=== PATIENT | female | born 1980 | race Caucasian/White ===

== ENCOUNTER 2024-05-27 09:42 | Outpatient (CLI) | payer BC, SELFPAY ==
--- NOTE | 2024-05-27 09:49 | XR_ITS ---
FINAL REPORT CLINICAL HISTORY: right hip pain; nki. possible sciatica but states it does not go down her leg COMPARISON: None FINDINGS: RIGHT HIP 3 views of the right hip demonstrate no acute fracture or dislocation. The joint spaces appear normal. The visualized bony structures are well aligned. No soft tissue abnormality is seen. IMPRESSION: No acute bony abnormality. Reviewed, Interpreted and Dictated by Maykel Rey III, MD Transcribed by Raquel Osman Authenticated and [facility]
--- NOTE | 2024-05-27 09:49 | XR_ITS ---
FINAL REPORT CLINICAL HISTORY: pain COMPARISON: None FINDINGS: RIGHT CALCANEUS: 2 views of the right calcaneus failed to reveal any evidence of acute fracture or dislocation. A plantar calcaneal spur is present. No soft tissue abnormality is identified. IMPRESSION: Plantar calcaneal spur without acute bony abnormality. Reviewed, Interpreted and Dictated by Maykel Rey III, MD Transcribed by Raquel Osman Authenticated and [facility]
== END 2024-05-27 23:59 | disposition home or self-care (01) ==
LOC: RAD 09:46
PROVIDERS: PCP Internal Medicine; Visit Provider Orthopaedic Surgery
DX: M79.671 Pain in right foot (principal); M25.551 Pain in right hip
CPT/HCPCS: 73502; 73650

== ENCOUNTER 2024-09-29 09:52 | Outpatient (POV) | payer BC, SELFPAY ==
--- NOTE | 2024-09-29 10:14 | EXP.PAIN.OV ---
HPI Data of Consult Patient: new to practice Consult date: 09/29/24 Requesting Physician: Alice Fulton APRN Primary Care Provider: Bobby Goyal Consult Narrative Reason for consult: Low back pain, right hip pain, right heel pain History of present illness: Ms. Mark is a 44 year old female who presents today as a new patient. She is a referral from Regan Fulton's office. Today she rates her pain a 5 out of 10. Patient states that she has pain from her low back that radiates into her right hip as well as pain directly at her right heel. Patient states this is gone on since 2002 and progressively worsening. She does describe this as a constant dull pain however states that it is worse with increased activity or prolonged positions. She states she has noticed worsening pain with walking or sitting for long periods of time. She states that she does have to often move around or change positions. She does state that it had all been along the right side up until around July that she ended up slipping in the snow and felt like she pulled something and then had more left pain as well. She states that pain along the left side just stays in and around her low back and buttocks/hip area. She denies any radiating symptoms into her legs. Patient does state that she saw Dr. Fulton regarding her heel and that the imaging did not show anything and that he thought possibly it was coming from her back. Patient states she has tried oral medications, heat and ice, topicals, at home stretching and exercise for longer than 12 weeks. Patient has had both physical therapy and chiropractor therapy with no additional changes and states that neither of those provided any additional improvement. Patient denies any previous injections. Patient is not on any scheduled medications. Her Alexys has been reviewed and is appropriate. CC: Alice Fulton APRN [facility] Disclaimer: The information contained in this section may have been updated after the patient was seen, as this information can be updated by other users. Medical History (Updated 09/29/24 @ 11:21 by Alice Fulton APRN) Diabetes Family History (Updated 09/29/24 @ 10:51 by Bettye Jacome RN) Other Unknown family medical history Social History (Updated 09/29/24 @ 10:53 by Bettye Jacome RN) Smoking Status: Never smoker alcohol intake: current current occupational status: employed Travel in the last 8 weeks: None Contact w/someone who lives/traveled outside [place] past 30 days?: No Exposure to someone with infectious disease in past 14 days?: No Do you have a fever (greater than 100.4 F or 38 C)?: No Have you tested positive for COVID-19: No Exposed to someone with COVID-19 in past 14 days?: No Do you have a sore throat?: No Do you have a cough?: No Do you have any weakness?: No Are you experiencing any nausea/vomitting?: No Do you have any diarrhea?: No Are you experiencing any unusual bleeding?: No Do you have any muscle aches/pain?: No Do you have any abdominal pain?: No Are you experiencing loss of taste or smell?: No Review of Systems Review of Systems Review of systems:: pertinent systems reviewed and negative unless documented below Review of systems (narrative): Review of Systems: General: No recent weight changes, no fever, no sleep disturbances Respiratory: No cough, no shortness of air, no recurring pulmonary infections Cardiovascular/peripheral vascular: No chest pain, no palpitations, no edema, no shortness of breath Gastrointestinal: No new onset incontinence, normal bowel movements reported Genitourinary: No new onset incontinence Musculoskeletal: Low back pain, bilateral hip pain, right heel pain Psychiatric: [Normal mood/affect] Neurological: [Denies weakness in extremities], [denies balance issues] Meds Home Medications and Allergies Home Medications ?Medication ?Instructions ?Recorded ?Confirmed ?Type fluticasone propionate 50 1 spray intranasal DIRECTED 09/14/24 09/29/24 History mcg/actuation nasal spray,suspension levocetirizine 5 mg tablet 5 mg PO DIRECTED 09/14/24 09/29/24 History semaglutide 2 mg/dose (8 mg/3 mL) 2 mg SQ DIRECTED 09/14/24 09/29/24 History subcutaneous pen injector (Ozempic) New Prescriptions to Start Prescriptions: Allergies Allergy/AdvReac Type Severity Reaction Status Date / Time No Known Allergies Allergy Verified 09/14/24 09:34 Objective Narrative: Physical Exam: General: Alert and oriented x3, no acute distress, pleasant and cooperative Lungs: Respirations even and unlabored, symmetrical chest expansion Eyes: PERRL Musculoskeletal: Flexion and extension of lumbar [spine] somewhat guarded secondary to pain, [antalgic gait noted] point tenderness along bilateral SIs with positive bilateral Silverio's, Rossi's, Gaenslen's, compression and distraction exam Neurological: Speech clear, no gross sensory deficit Additional findings Additional findings: X-ray right hip 05/27/2024 impression no acute bony abnormality\ Right calcaneus x-ray 05/27/2024 impression plantar calcaneal spur without acute bony abnormality MRI lumbar spine 09/08/2024 [facility] imaging Findings: The L5-S1 level shows a central disc herniation indenting the anterior aspect of the thecal sac. The neuroforamina are patent L4-L5 level shows a central disc herniation indenting the anterior aspect of the thecal sac. Neuroforamina patent. L3-L4 level shows no evidence of disc herniation or spinal stenosis. Neuroforamina patent. L2-L3 levels are normal. L1-2 level is normal. T12-L1 is normal. Conus and cauda equina normal. Paravertebral soft tissues are normal. No fracture or dislocation. Assessment and Plan *Assessment and plan (1) Low back pain: Status: Acute Qualifiers: Back pain laterality: right Chronicity: acute Sciatica presence: with sciatica Category: Medical Code(s): M54.50 - Low back pain, unspecified (2) Right hip pain: Status: Acute Category: Medical Code(s): M25.551 - Pain in right hip (3) Pain of right heel: Status: Acute Category: Medical Code(s): M79.671 - Pain in right foot (4) Bilateral sacroiliitis: Status: Acute Category: Medical Code(s): M46.1 - Sacroiliitis, not elsewhere classified Plan Patient is experiencing worsening pain along the low back and bilateral hips. They did have limited range of motion of the lumbar spine along with point tenderness along bilateral SI joints and a positive bilateral Silverio's, Rossi's, Gaenslen's, compression and distraction exam. I did discuss with the patient that I do believe they would benefit from bilateral SI injections. Risk and benefits were discussed with the patient and they would like to proceed forward with this option. Patient has tried and failed conservative therapy including continued at home stretching exercise for longer than 12 weeks that was physician guided. Patient has had both physical therapy and chiropractor therapy with no additional changes. Patient has had this pain for longer than 3 months. I will order the patient a compounded cream. I did also review over with the patient regarding her heel imaging and did let her know that there was a calcaneal spur noted. Patient states that she was unaware regarding this. I have recommended that she follow back up with Dr. Fulton's office pertaining to this. Patient will be scheduled for bilateral SI injections under fluoroscopy. Patient has been instructed to contact the clinic with any concerns before the next appointment. Dr. Arora has reviewed this note and agrees with this plan of care. This note was dictated using voice recognition software and make contain errors or omissions. All injections are used with Lidocaine or Bupivacaine and Depo Medrol.
[2024-09-29 10:47] VITALS: BP 129/85; PULSE 85; RESP 18; O2SAT 98; BMI 33.3
== END 2024-09-29 23:59 | disposition home or self-care (01) ==
LOC: SC.PAIN 09:54
PROVIDERS: PCP Internal Medicine; Visit Provider Nurse Practitioner Family
DX: M54.50 Low back pain, unspecified (principal); M25.551 Pain in right hip; M79.671 Pain in right foot; M46.1 Sacroiliitis, not elsewhere classified
CPT/HCPCS: 99202; G0463

== ENCOUNTER 2024-10-26 08:58 | Day surgery (SDC) | payer BC, SELFPAY ==
[2024-10-26 09:05] VITALS: BP 132/85; PULSE 89; RESP 18; O2SAT 100; BMI 33.9
[2024-10-26] MEDS: BUPIVACAINE 0.25% 10ML INJ 25 MG IJ (09:29)
[2024-10-26] MEDS: methylPREDNISolone ACETATE 80MG/ML VIAL 80 MG (09:29)
[2024-10-26 09:30] VITALS: BP 132/94; PULSE 83; RESP 18; O2SAT 100
[2024-10-26] MEDS: LIDOCAINE 1% 5ML PF VIAL 5 ML (09:30)
[2024-10-26 09:31] VITALS: BP 132/94; PULSE 83; RESP 18; O2SAT 100
[2024-10-26 09:34] VITALS: BP 133/89; PULSE 91; RESP 17; O2SAT 100
--- NOTE | 2024-10-26 12:47 | P.PCN_ITS ---
Procedure Date: 10/26/24 Time: 09:30 Anesthesiologist:: Zohaib Mera CRNA Complications:: None Pre-procedure Diagnosis:: Bilateral sacroiliitis Post-procedure Diagnosis:: Same Indications for Procedure:: Is a very pleasant 44-year-old female comes our clinic today for bilateral sacroiliac joint injections cortisone and local anesthetic. Patient describes low lumbar back pain off the midline bilaterally. Bilateral posterior hip pain. Difficulty transitioning from sitting to standing. Difficulty with ambulation. She rates her pain 7/10. Procedure Details:: Procedure: Bilateral sacroiliac joint injections under fluoroscopy Informed consent was obtained and the risks and benefits of the procedure were explained to the patient.~ The patient was taken to the procedure room and noninvasive monitors were placed including a noninvasive blood pressure cuff and pulse oximeter.~ The patient was placed prone on the procedure table. Both hips were cleansed using Betadine as a cleansing solution. C-arm fluoroscopy was used to view the right sacroiliac joint.~ The skin and subcutaneous tissues were anesthetized using lidocaine 1.5% and a 25-gauge needle.~ After this, a 22-gauge spinal needle was inserted under fluoroscopic guidance into the inferior aspect of the right sacroiliac joint.~ Omnipaque dye was injected and good spread was seen throughout the joint.~ After this, approximately 5 mL of bupivacaine, 0.25% and Depo-Medrol, 40 mg was incrementally injected into the right sacroiliac joint. We then moved to the left sacroiliac joint.~ The skin and subcutaneous tissues were anesthetized using lidocaine 1.5% and a 25-gauge needle.~ After this, a 22- gauge spinal needle was inserted under fluoroscopic guidance into the inferior aspect of the left sacroiliac joint.~ Omnipaque dye was injected and good spread was seen throughout the joint. After this, approximately 5 mL of bupivacaine, 0.25% and Depo-Medrol, 40 mg was incrementally injected into the left sacroiliac joint.~ The patient tolerated the procedure well with no complications. The patient was observed in the Pain Clinic and then was discharged home neurologically intact. Plan and Disposition:: Patient was discharged without incident.
== END 2024-10-26 09:34 | disposition home or self-care (01) ==
LOC: SC.PAINP 08:59
PROVIDERS: PCP Internal Medicine; Visit Provider Nurse Anesthetist, Certified Registered
DX: M46.1 Sacroiliitis, not elsewhere classified (principal)
CPT/HCPCS: 27096; G0260; J1010

== ENCOUNTER 2024-11-09 09:38 | Outpatient (POV) | payer BC, SELFPAY ==
--- NOTE | 2024-11-09 10:12 | A.OFFVIS_ITS ---
[facility] Disclaimer: The information contained in this section may have been updated after the patient was seen, as this information can be updated by other users. Medical History (Updated 11/09/24 @ 10:15 by Alice Fulton APRN) Diabetes Family History Other Unknown family medical history Social History Smoking Status: Never smoker alcohol intake: current current occupational status: employed Travel in the last 8 weeks: None PM Subjective & Objective Subjective Subjective:: Patient is a pleasant 44-year-old female who presents today for follow-up of bilateral SI injections on 10/26/2024. Patient does rate her pain today a 6 out of 10. She denies any new falls or injuries. She does state that she did get significant relief with this injections and that it did however take about a week to kick again. Patient states that she was very sore and tender following the actual procedure but then did feel like it eventually started to ease off. Patient does state today her pain is more so higher along the left side with tenderness to touch. Patient does state she also feels like she is having some sensations into her lower legs. Patient does state that the upper back pain is worse than the leg symptoms. She describes it as a constant achy sensation that is worse with certain positions. She does state that this does interfere with her ability perform activities of daily living such as cooking and cleaning. Patient is interested in additional injection therapy. Patient does also make mention that she did end up getting the compounded cream we prescribed and it works great for her thighs however did not notice any additional relief with the back pain. Her Alexys has been reviewed and is appropriate. Review of Systems: General: No recent weight changes, no fever, no sleep disturbances Respiratory: No cough, no shortness of air, no recurring pulmonary infections Cardiovascular/peripheral vascular: No chest pain, no palpitations, no edema, no shortness of breath Gastrointestinal: No new onset incontinence, normal bowel movements reported Genitourinary: No new onset incontinence Musculoskeletal: Left-sided low back pain Psychiatric: [Normal mood/affect] Neurological: [Denies weakness in extremities], [denies balance issues] Pain at rest (0-10 scale): 6 Objective Objective:: Physical Exam: General: Alert and oriented x3, no acute distress, pleasant and cooperative Lungs: Respirations even and unlabored, symmetrical chest expansion Eyes: PERRL Musculoskeletal: Flexion and extension of lumbar [spine] somewhat guarded secondary to pain, point tenderness along left thoracic paraspinous, latissimus muscles Neurological: Speech clear, no gross sensory deficit Has patient had previous pain injection?: Yes Percent improvement in pain since last injection: Significant Conservative treatment options previously tried: Home exercise plan Length of treatment: Longer than 12 weeks Meds Home Medications and Allergies Home Medications ?Medication ?Instructions ?Recorded ?Confirmed ?Type fluticasone propionate 50 1 spray intranasal DIRECTED 09/14/24 10/26/24 History mcg/actuation nasal spray,suspension levocetirizine 5 mg tablet 5 mg PO DIRECTED 09/14/24 10/26/24 History semaglutide 2 mg/dose (8 mg/3 mL) 2 mg SQ DIRECTED 09/14/24 10/26/24 History subcutaneous pen injector (Ozempic) New Prescriptions to Start Prescriptions: Allergies Allergy/AdvReac Type Severity Reaction Status Date / Time No Known Allergies Allergy Verified 10/26/24 09:05 Assessment and Plan *Assessment and plan (1) Myofascial pain on left side: Status: Acute Category: Medical Code(s): M79.18 - Myalgia, other site Plan Patient did have significant relief following her SI injections and states that that is much better but following that she did notice more pain that was higher up that she did believe it was present all along. Patient did have point tend erness along her left thoracic paraspinous muscles. I did discuss with the patient due to this being a constant sensation that she may benefit from trigger point injections into this muscle group. Risk and benefits were discussed with the patient and she would like to proceed forward with this plan of care. Patient has tried and failed conservative therapy including oral medication, heat and ice, topicals, physical therapy, chiropractor therapy and at home stretching exercise for longer than 12 weeks. Patient has had chronic back pain for longer than 6 months. Patient will be scheduled for trigger point injections of her left thoracic paraspinous/latissimus muscles. These will be done without fluoroscopic guidance or ultrasound. I will also send in a 2-week dose of methocarbamol 500 mg twice a day as needed. Patient has been instructed to contact the clinic with any concerns before the next appointment. Dr. Arora has reviewed this note and agrees with this plan of care. This note was dictated using voice recognition software and make contain errors or omissions. All injections are used with Lidocaine, Bupivacaine and Depo Medrol. Occasionally urine drug screen is needed to verify patient's compliance with our office pain contract. This is ordered based off specific treatments related to chronic pain with the potential to abuse certain medications.
[2024-11-09 10:18] VITALS: BP 140/89; PULSE 82; RESP 14; O2SAT 100; BMI 33.3
== END 2024-11-09 23:59 | disposition home or self-care (01) ==
PROVIDERS: PCP Internal Medicine; Visit Provider Nurse Practitioner Family
DX: M79.18 Myalgia, other site (principal); Z73.89 Other problems related to life management difficulty
CPT/HCPCS: 99212; G0463

== ENCOUNTER 2024-11-23 08:33 | Day surgery (SDC) | payer BC, SELFPAY ==
[2024-11-23 08:39] VITALS: BP 145/93; PULSE 84; RESP 18; O2SAT 98; BMI 33.3
--- NOTE | 2024-11-23 08:45 | EXP.HP ---
History of Present Illness *Admission Date: 11/23/24 *Reason for visit:: Trigger point injections; myofascial pain *History of present illness: Myofascial pain left thoracic paraspinous muscles [facility] Disclaimer: The information contained in this section may have been updated after the patient was seen, as this information can be updated by other users. Medical History Diabetes Family History Other Unknown family medical history Social History Smoking Status: Never smoker alcohol intake: current current occupational status: other Travel in the last 8 weeks?: None Other Medical History Have you received the Flu Vaccine for this season: Yes Have you received the Pneumonia Vaccine: No Review of Systems Review of Systems Review of systems:: pertinent systems reviewed and negative unless documented below Review of systems (narrative): Review of Systems: General: No recent weight changes, no fever, no sleep disturbances Respiratory: No cough, no shortness of air, no recurring pulmonary infections Cardiovascular/peripheral vascular: No chest pain, no palpitations, no edema, no shortness of breath Gastrointestinal: No new onset incontinence, normal bowel movements reported Genitourinary: No new onset incontinence Musculoskeletal: Mid back pain Psychiatric: [Normal mood/affect] Neurological: [Denies weakness in extremities], [denies balance issues] Meds Home Medications and Allergies Home Medications ?Medication ?Instructions ?Recorded ?Confirmed ?Type fluticasone propionate 50 1 spray intranasal DIRECTED 09/14/24 11/09/24 History mcg/actuation nasal spray,suspension levocetirizine 5 mg tablet 5 mg PO DIRECTED 09/14/24 11/09/24 History semaglutide 2 mg/dose (8 mg/3 mL) 2 mg SQ DIRECTED 09/14/24 11/09/24 History subcutaneous pen injector (Ozempic) methocarbamol 500 mg tablet 500 mg PO BID #28 tabs 11/09/24 Rx New Prescriptions to Start Prescriptions: Allergies Allergy/AdvReac Type Severity Reaction Status Date / Time No Known Allergies Allergy Verified 10/26/24 09:05 Exam Constitutional Constitutional: no acute distress *Routine HEENT Exam Head: Present normocephalic and atraumatic Eye: Present PERRL ENT: Present mucous membranes moist *Routine Neck Exam Neck: Present supple *Routine Respiratory Exam Respiratory: Present CTA bilaterally *Routine Cardiovascular Exam Cardiovascular: Present RRR *Routine Abdominal Exam Abdominal: Present soft *Routine Rectal Exam Rectal:: deferred *Routine Genitalia Exam Genitalia:: normal female Routine Back/Spine/Pelvis Exam Back/Spine: Present full ROM *Routine Skin Exam Skin: Present intact and warm *Routine Neurological Exam Neurological: Present alert and oriented X3 Routine Psychiatric Exam Psychiatric: Present normal affect and normal thought process Assessment and Plan *Assessment and plan (1) Myofascial pain on left side: Status: Acute Category: Medical Code(s): M79.18 - Myalgia, other site Plan Patient has been instructed to contact the clinic with any concerns before the next appointment. Dr. Arora has reviewed this note and agrees with this plan of care. This note was dictated using voice recognition software and make contain errors or omissions. All injections are used with Lidocaine, Bupivacaine and dexamethasone. Occasionally urine drug screen is needed to verify patient's compliance with our office pain contract. This is ordered based off specific treatments related to chronic pain with the potential to abuse certain medications.
[2024-11-23 08:47] VITALS: BP 150/95; PULSE 79; RESP 18; O2SAT 99
[2024-11-23] MEDS: DEXAMETHASONE 10MG/ML 1ML VIAL 10 MG (08:48)
[2024-11-23] MEDS: LIDOCAINE 1% 5ML PF VIAL 5 ML (08:48)
[2024-11-23] MEDS: BUPIVACAINE 0.25% 10ML INJ 25 MG IJ (08:48)
[2024-11-23 09:00] VITALS: BP 124/85; PULSE 75; RESP 18; O2SAT 100
--- NOTE | 2024-11-23 09:00 | EXP.PAIN.PRO ---
Procedure Date: 11/23/24 Time: 08:57 Anesthesiologist:: Alice Fulton APRN Complications:: None Pre-procedure Diagnosis:: Myofascial pain, low back pain with lumbar radiculopathy, right hip pain, sacroiliitis Post-procedure Diagnosis:: Same Indications for Procedure:: Patient is a pleasant 44-year-old female who presents today for trigger point injections of her left thoracic paraspinous/latissimus muscles. She does rate that pain currently a 4 however with palpation does state that it will go much higher. Patient does also make mention that she is continuing to have worsening pain in her low back that does go into her hips and upper legs. She describes this pain as a sharp sensation with numbness into the upper legs. She states that this has been going on since she has had her child years ago. Patient states that pain does interfere with her ability perform activities of daily living such as cooking and cleaning. Patient is also interested in additional injections for this pain at a later date. Patient has continued oral medications, heat and ice, topicals, physical therapy and chiropractor therapy with continued at home stretching exercise for longer than 12 weeks. Patient at our last visit was given methocarbamol 500 mg twice a day. She denies any side effects. She did state that it helped without causing any drowsiness. Patient is asking whether or not if we can go up on the dosage. Patient was also given a compounded cream and states it does seem to help her legs but has not noticed any improvement on her overall back. Her Alexys has been reviewed and is appropriate. Physical Exam: General: Alert and oriented x3, no acute distress, pleasant and cooperative Lungs: Respirations even and unlabored, symmetrical chest expansion Eyes: PERRL Musculoskeletal: Flexion and extension of lumbar [spine] somewhat guarded secondary to pain, positive right leg raise Neurological: Speech clear, no gross sensory deficit Procedure Details:: Patient did have noninvasive blood pressure cuff applied and pulse oximeter. Patient was placed in a sitting position and palpated along her left rhomboid/thoracic paraspinous latissimus muscles. Areas of point tenderness were marked and using a sterile 25-gauge needle approximately 10 mL of 0.25% bupivacaine, 1% lidocaine and 10 mg dexamethasone were incrementally injected into her left rhomboid, left thoracic paraspinous/latissimus muscles. Needle was removed and sterile bandages applied. Patient tolerated the procedure well with no complications and was discharged neurologically intact. Plan and Disposition:: Patient is experiencing worsening pain in her low back with numbness and tingling into her lower extremities. Patient did have limited range of motion of her lumbar spine with a positive leg raise. I did discuss with patient that I do believe they would benefit from a lumbar epidural steroid injection. Risk and benefits were discussed with patient and the patient would like to proceed forward with this plan of care. Patient is not on any blood thinners. Patient has tried and failed conservative therapy including oral medications, heat and ice, topicals, physical therapy and chiropractor therapy and continued at home stretching exercise for longer than 12 weeks that was physician guided. Patient has not had any epidurals however has had this pain for longer than a year. Patient's pain does radiate down her lateral upper legs following the approximate dermatome of L4-L5. We will schedule the patient for an LESI L4-L5 under fluoroscopy. Patient tolerated her trigger point injections with no complication was discharged neurologically intact. Patient has been instructed to contact the clinic with any concerns before the next appointment. Dr. Arora has reviewed this note and agrees with this plan of care. This note was dictated using voice recognition software and make contain errors or omissions. All injections are used with Lidocaine, Bupivacaine and Depo Medrol. Occasionally urine drug screen is needed to verify patient's compliance with our office pain contract. This is ordered based off specific treatments related to chronic pain with the potential to abuse certain medications.
== END 2024-11-23 09:00 | disposition home or self-care (01) ==
PROVIDERS: PCP Internal Medicine; Visit Provider Nurse Practitioner Family
DX: M79.18 Myalgia, other site (principal); M54.50 Low back pain, unspecified; M54.16 Radiculopathy, lumbar region; M25.551 Pain in right hip; M46.1 Sacroiliitis, not elsewhere classified; Z73.89 Other problems related to life management difficulty
CPT/HCPCS: 20552; 99212; G0463; J1100

== ENCOUNTER 2024-12-06 09:37 | Outpatient (POV) | payer BC, SELFPAY ==
[2024-12-06 10:09] VITALS: BP 124/90; PULSE 79; RESP 14; O2SAT 98; BMI 36.6
--- NOTE | 2024-12-06 10:14 | EXP.PAIN.SOA ---
[facility] Disclaimer: The information contained in this section may have been updated after the patient was seen, as this information can be updated by other users. Medical History Diabetes Family History Other Unknown family medical history Social History Smoking Status: Never smoker alcohol intake: current current occupational status: other Travel in the last 8 weeks?: None Have you lived/traveled outside US in past 30 days?: No Contact w/someone who lives/traveled outside US past 30 days?: No Exposure to someone with infectious disease in past 14 days?: No Do you have a fever (greater than 100.4 F or 38 C)?: No Have you tested positive for COVID-19?: No Exposed to someone with COVID-19 in past 14 days?: No Do you have a sore throat?: No Do you have a cough?: No Do you have any weakness?: No Are you experiencing any nausea/vomitting?: No Do you have any diarrhea?: No Are you experiencing any unusual bleeding?: No Do you have any muscle aches/pain?: No Do you have any abdominal pain?: No Are you experiencing loss of taste or smell?: No PM Subjective & Objective Subjective Subjective:: Patient is a pleasant 44-year-old female who presents today for follow-up of trigger point injections of her left thoracic latissimus/paraspinous muscles on 11/23/2024. Patient states she has had 100% improvement following that injection and feels like it is still working well and rates her pain in this location is 0 out of 10. Patient does however state that since having this pain relief she feels like she notices more pain in her low back. Patient does feel like it is still that same pain that we treated previously. Patient denies any new falls or injuries. Patient was prescribed methocarbamol 500 mg twice a day from our office and she does state that this has additionally helped and denies any drowsiness. Patient denies any radiating symptoms into her legs with the low back pain and states it stays around her buttocks and hip area. Her Alexys has been reviewed and is appropriate. Review of Systems: General: No recent weight changes, no fever, no sleep disturbances Respiratory: No cough, no shortness of air, no recurring pulmonary infections Cardiovascular/peripheral vascular: No chest pain, no palpitations, no edema, no shortness of breath Gastrointestinal: No new onset incontinence, normal bowel movements reported Genitourinary: No new onset incontinence Musculoskeletal: Low back pain Psychiatric: [Normal mood/affect] Neurological: [Denies weakness in extremities], [denies balance issues] Pain at rest (0-10 scale): 0 Objective Objective:: Physical Exam: General: Alert and oriented x3, no acute distress, pleasant and cooperative Lungs: Respirations even and unlabored, symmetrical chest expansion Eyes: PERRL Musculoskeletal: Flexion and extension of lumbar [spine] somewhat guarded secondary to pain, point tenderness along bilateral SI joints Neurological: Speech clear, no gross sensory deficit Has patient had previous pain injection?: Yes Percent improvement in pain since last injection: 100% Conservative treatment options previously tried: Home exercise plan Length of treatment: Longer than 12 weeks Meds Home Medications and Allergies Home Medications ?Medication ?Instructions ?Recorded ?Confirmed ?Type fluticasone propionate 50 1 spray intranasal DIRECTED 09/14/24 12/06/24 History mcg/actuation nasal spray,suspension levocetirizine 5 mg tablet 5 mg PO DIRECTED 09/14/24 12/06/24 History semaglutide 2 mg/dose (8 mg/3 mL) 2 mg SQ DIRECTED 09/14/24 12/06/24 History subcutaneous pen injector (Ozempic) methocarbamol 500 mg tablet 1,000 mg (2 x 500 mg) PO BID PRN 11/23/24 12/06/24 Rx muscle pain #120 tabs New Prescriptions to Start Prescriptions: Allergies Allergy/AdvReac Type Severity Reaction Status Date / Time No Known Allergies Allergy Verified 10/26/24 09:05 Assessment and Plan *Assessment and plan (1) Bilateral sacroiliitis: Status: Acute Category: Medical Code(s): M46.1 - Sacroiliitis, not elsewhere classified Plan Patient has had significant improvement following her trigger point injections and does not require any additional injection therapy at this location. I did review over with her due to having increased point tenderness along her SI joints that in future we will definitely plan on proceeding forward with repeat injections. Patient had her last SI injections in the beginning of October and would be able to have repeat injection in January. We will follow-up on this in future. I will change her methocarbamol to 3 times a day. Patient agrees with this plan of care. Patient has been instructed to contact the clinic with any concerns before the next appointment. Dr. Arora has reviewed this note and agrees with this plan of care. This note was dictated using voice recognition software and make contain errors or omissions. All injections are used with Lidocaine, Bupivacaine and dexamethasone. Occasionally urine drug screen is needed to verify patient's compliance with our office pain contract. This is ordered based off specific treatments related to chronic pain with the potential to abuse certain medications.
== END 2024-12-06 23:59 | disposition home or self-care (01) ==
PROVIDERS: PCP Internal Medicine; Visit Provider Nurse Practitioner Family
DX: M46.1 Sacroiliitis, not elsewhere classified (principal)
CPT/HCPCS: 99212; G0463

== ENCOUNTER 2025-01-04 10:09 | Day surgery (SDC) | payer BC, SELFPAY ==
[2025-01-04 10:18] VITALS: BP 122/84; PULSE 70; RESP 16; TEMP 36.7; O2SAT 99; BMI 36.2
[2025-01-04] MEDS: IOPAMIDOL-200 (41%);10ML VIAL 10 ML IV (10:46)
--- NOTE | 2025-01-04 10:47 | EXP.PAIN.PRO ---
Procedure Date: 01/04/25 Time: 10:45 Anesthesiologist:: Zohaib Mera CRNA Complications:: None Pre-procedure Diagnosis:: Degenerative disc lumbar spine multilevels. Lumbar radiculopathy. Bilateral sacroiliitis. Post-procedure Diagnosis:: Same. Indications for Procedure:: Patient is a very pleasant 44-year-old female comes our clinic today for a lumbar epidural steroid injection at the L4-5 level. Patient describes low lumbar back pain as constant, dull, aching. She also reports bilateral hip and leg radicular symptoms. She rates her pain 7/10. Patient describes low lumbar back pain off the midline bilaterally. She has extreme point tenderness over the bilateral sacroiliac joint. She has positive Gaenslen's test. Positives Silverio's test. Positive bilateral sacroiliac joint compression test. She reports responding well to previous bilateral sacroiliac joint injections. We discussed in detail regarding the lumbar epidural steroid injection and if it is not helpful for the bilateral posterior hip pain we could repeat bilateral SI joint injections of cortisone local anesthetic. Procedure Details:: Procedure: Lumbar epidural steroid injection under fluoroscopy Informed consent was obtained and the risks and benefits of the procedure were explained to the patient. The patient was taken to the procedure room and noninvasive monitors placed, including noninvasive blood pressure cuff and pulse oximeter. The back was viewed using C-arm Fluoroscopy and prepped using Chloraprep as a cleansing solution and the L4-L5 interspace was palpated. Skin and subcutaneous tissues were anesthetized using lidocaine 1.5% and a 25-gauge needle. After this, an 18-gauge Touhy epidural needle was placed into the L4-L5 interspace and advanced using fluoroscopic guidance and loss of resistance to air until the epidural space was encountered. After confirmation of needle placement in the epidural space, with dye, a solution containing normal saline, 3 mL and Depo-Medrol 80 mg were incrementally injected into the lumbar epidural space. The patient tolerated the procedure well with no complications. The patient was observed in the Pain Clinic and then discharged home neurologically intact. Plan and Disposition:: Patient was discharged without incident.
[2025-01-04 10:54] VITALS: BP 134/87; PULSE 80; RESP 16; O2SAT 100
[2025-01-04 11:02] VITALS: BP 139/90; PULSE 77; RESP 18; O2SAT 99
[2025-01-04] MEDS: DEXAMETHASONE 10MG/ML 1ML VIAL 10 MG (11:02)
[2025-01-04 11:15] VITALS: BP 139/90; PULSE 77; RESP 18; O2SAT 99
== END 2025-01-04 10:54 | disposition home or self-care (01) ==
PROVIDERS: PCP Internal Medicine; Visit Provider Nurse Anesthetist, Certified Registered
DX: M51.16 Intervertebral disc disorders with radiculopathy, lumbar region (principal); E11.9 Type 2 diabetes mellitus without complications; M46.1 Sacroiliitis, not elsewhere classified; Z79.899 Other long term (current) drug therapy; Z79.85 Long-term (current) use of injectable non-insulin antidiabetic drugs
CPT/HCPCS: 62323; J1100; Q9966

== ENCOUNTER 2025-01-27 13:16 | Outpatient (POV) | payer BC, SELFPAY ==
--- NOTE | 2025-01-27 13:22 | EXP.PAIN.SOA ---
[facility] Disclaimer: The information contained in this section may have been updated after the patient was seen, as this information can be updated by other users. Medical History Diabetes Family History Other Unknown family medical history Social History Smoking Status: Never smoker alcohol intake: current current occupational status: other Travel in the last 8 weeks?: None Have you lived/traveled outside US in past 30 days?: No Contact w/someone who lives/traveled outside US past 30 days?: No Exposure to someone with infectious disease in past 14 days?: No Do you have a fever (greater than 100.4 F or 38 C)?: No Have you tested positive for COVID-19?: No Exposed to someone with COVID-19 in past 14 days?: No Do you have a sore throat?: No Do you have a cough?: No Do you have any weakness?: No Do you have any diarrhea?: No Are you experiencing any unusual bleeding?: No Do you have any muscle aches/pain?: No Do you have any abdominal pain?: No Are you experiencing loss of taste or smell?: No PM Subjective & Objective Subjective Subjective:: Patient is a pleasant 44-year-old female who presents today for follow-up of her lumbar epidural steroid injection L4-L5 on 01/04/2025. Today she rates her pain a 8 out of 10. She denies any new trauma or injury. She does state that the epidural injection did really help take care of this shocking sensations going into her legs by at least 50%. Patient's biggest complaint today is her hips. Patient states the left hip is worse than the right. She states it is worse with increased activity and is interfering with her ability perform activities of daily living such as cooking and cleaning. Patient is interested in injection therapy to help with this pain. she has been prescribed compounded cream in the past however did not notice significant relief with this. Alexys has been reviewed and is appropriate. Review of Systems: General: No recent weight changes, no fever, no sleep disturbances Respiratory: No cough, no shortness of air, no recurring pulmonary infections Cardiovascular/peripheral vascular: No chest pain, no palpitations, no edema, no shortness of breath Gastrointestinal: No new onset incontinence, normal bowel movements reported Genitourinary: No new onset incontinence Musculoskeletal: Bilateral hip pain Psychiatric: [Normal mood/affect] Neurological: [Denies weakness in extremities], [denies balance issues] Pain at rest (0-10 scale): 8 Objective Objective:: Physical Exam: General: Alert and oriented x3, no acute distress, pleasant and cooperative Lungs: Respirations even and unlabored, symmetrical chest expansion Eyes: PERRL Musculoskeletal: Flexion and extension of lumbar [spine] somewhat guarded secondary to pain, [antalgic gait noted] point tenderness along bilateral SIs with positive bilateral Silverio's, Rossi's, Gaenslen's, compression and distraction exam Neurological: Speech clear, no gross sensory deficit Has patient had previous pain injection?: Yes Percent improvement in pain since last injection: 50% Conservative treatment options previously tried: Home exercise plan Length of treatment: Longer than 12 weeks Meds Home Medications and Allergies Home Medications ?Medication ?Instructions ?Recorded ?Confirmed ?Type fluticasone propionate 50 1 spray intranasal DIRECTED 09/14/24 01/27/25 History mcg/actuation nasal spray,suspension levocetirizine 5 mg tablet 5 mg PO DIRECTED 09/14/24 01/27/25 History semaglutide 2 mg/dose (8 mg/3 mL) 2 mg SQ DIRECTED 09/14/24 01/27/25 History subcutaneous pen injector (Ozempic) methocarbamol 500 mg tablet 1,000 mg (2 x 500 mg) PO TID PRN 12/06/24 01/27/25 Rx muscle pain #180 tabs New Prescriptions to Start Prescriptions: Allergies Allergy/AdvReac Type Severity Reaction Status Date / Time No Known Allergies Allergy Verified 10/26/24 09:05 Assessment and Plan *Assessment and plan (1) Bilateral sacroiliitis: Status: Acute Category: Medical Code(s): M46.1 - Sacroiliitis, not elsewhere classified Plan Patient is experiencing worsening pain along the low back and bilateral hips. They did have limited range of motion of the lumbar spine along with point tenderness along bilateral SI joints and a positive bilateral Silverio's, Rossi's, Gaenslen's, compression and distraction exam. I did discuss with the patient that I do believe they would benefit from bilateral SI injections. Risk and benefits were discussed with the patient and they would like to proceed forward with this option. Patient has tried and failed conservative therapy. Patient has been actively doing conservative treatment including oral medication, heat and ice, topicals, at home exercising and stretching for longer than 12 weeks. Patient is having to adjust their activity based off the increased pain resulting in activity modification. Patient has had chronic sacroiliitis in the past and has been ongoing low back and hip pain for longer than 6 months. Patient's last SI injections did provide 100% relief and were last done in October providing more than 2-1/2 months of relief. Patient will be scheduled for therapeutic injections with less than 1.5 mL of solution to be injected. Patient may still be a beneficial candidate of an SI fusion at a later date. We will follow-up after her relief with this injection. Patient will be scheduled for bilateral SI injections under fluoroscopy. Patient has been instructed to contact the clinic with any concerns before the next appointment. Dr. Arora has reviewed this note and agrees with this plan of care. This note was dictated using voice recognition software and make contain errors or omissions. All injections are used with Lidocaine or Bupivacaine and dexamethasone unless diagnostic in which no steroids were injected.
--- OUTSIDE RECORDS SUMMARY | 2025-01-27 13:22 | XMS_ITS | Encounter Summary ---
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 Name Role Phone Unavailable Primary Care Provider Unavailabl e Encounter Details Date Type Department Care Team (Late st Contact Info) Description 01/25/2020 Transcribed Document [facility] [place] [facility] [place] [address] ProviderAlexander MD [address] [place] [address] [phone] Social History Tobacco Use Types Packs/Day Years Used Date Smoking Tobacco: Never Assessed Comments Unknown Sex and Gender Information Value Date Recorded Sex Assigned at Not on file Legal Sex Female 6:06 PM CDT Gender Identity Not on file Sexual Orientation Not on file documented as of this encounter Miscellaneous Notes * Cerner Conversion Note - Alexander Arteaga MD - 01/25/2020 1:47 PM CDT Patient Education Materials Follows: Abdominal Hysterectomy, Care After This sheet gives you information about how to care for yourself after your procedure. Your doctor may also give you more specific instructions. If you have problems or questions, contact your doctor. Follow these instructions at home: Bathing ??? Do not take baths, swim, or use a hot tub until your doctor says it is okay. Ask your doctor if you can take showers. You may only be allowed to take sponge baths for bathing. ??? Keep the bandage (dressing) dry until your doctor says it can be taken off. Surgical cut (incision) care ??? Follow instructions from your doctor about how to take care of your cut from surgery. Make sure you: ? Wash your hands with soap and water before you change your bandage (dressing). If you cannot use soap and water, use hand rounder and backer. ? Change your bandage as told by your doctor. ? Leave stitches (sutures), skin glue, or skin tape (adhesive) strips in place. They may need to stay in place for 2 weeks or longer. If tape strips get loose and curl up, you may trim the loose edges. Do not remove tape strips completely unless your doctor says it is okay. ??? Check your surgical cut area every day for signs of infection. Check for: ? Redness, swelling, or pain. ? Fluid or blood. ? Warmth. ? Pus or a bad smell. Activity ??? Do gentle, daily exercise as told by your doctor. You may be told to take short walks every day and go farther each time. ??? Do not lift anything that is heavier than 10 lb (4.5 kg), or the limit that your doctor tells you, until he or she says that it is safe. ??? Do not drive or use heavy machinery while taking prescription pain medicine. ??? Do not drive for 24 hours if you were given a medicine to help you relax (sedative). ??? Follow your doctor's advice about exercise, driving, and general activities. Ask your doctor what activities are safe for you. Lifestyle ??? Do not douche, use tampons, or have sex for at least 6 weeks or as told by your doctor. ??? Do not drink alcohol until your doctor says it is okay. ??? Drink enough fluid to keep your pee (urine) clear or pale yellow. ??? Try to have someone at home with you for the first 1?2 weeks to help. ??? Do not use any products that contain nicotine or tobacco, such as cigarettes and e-cigarettes. These can slow down healing. If you need help quitting, ask your doctor. General instructions ??? Take xvaf-hch-xhktodi and prescription medicines only as told by your doctor. ??? Do not take aspirin or ibuprofen. These medicines can cause bleeding. ??? To prevent or treat constipation while you are taking prescription pain medicine, your doctor may suggest that you: ? Drink enough fluid to keep your urine clear or pale yellow. ? Take yfxp-bad-jzxxdgb or prescription medicines. ? Eat foods that are high in fiber, such as: ? Fresh fruits and vegetables. ? Whole grains. ? Beans. ? Limit foods that are high in fat and processed sugars, such as fried and sweet foods. ??? Keep all follow-up visits as told by your doctor. This is important. Contact a doctor if: ??? You have chills or fever. ??? You have redness, swelling, or pain around your cut. ??? You have fluid or blood coming from your cut. ??? Your cut feels warm to the touch. ??? You have pus or a bad smell coming from your cut. ??? Your cut breaks open. ??? You feel dizzy or light-headed. ??? You have pain or bleeding when you pee. ??? You keep having watery poop (diarrhea). ??? You keep feeling sick to your stomach (nauseous) or keep throwing up (vomiting). ??? You have unusual fluid (discharge) coming from your vagina. ??? You have a rash. ??? You have a reaction to your medicine. ??? Your pain medicine does not help. Get help right away if: ??? You have a fever and your symptoms get worse all of a sudden. ??? You have very bad belly (abdominal) pain. ??? You are short of breath. ??? You pass out (faint). ??? You have pain, swelling, or redness of your leg. ??? You bleed a lot from your vagina and notice clumps of blood (clots). Summary ??? Do not take baths, swim, or use a hot tub until your doctor says it is okay. Ask your doctor if you can take showers. You may only be allowed to take sponge baths for bathing. ??? Follow your doctor's advice about exercise, driving, and general activities. Ask your doctor what activities are safe for you. ??? Do not lift anything that is heavier than 10 lb (4.5 kg), or the limit that your doctor tells you, until he or she says that it is safe. ??? Try to have someone at home with you for the first 1?2 weeks to help. This information is not intended to replace advice given to you by your health care provider. Make sure you discuss any questions you have with your health care provider. Document Released: 04/15/2009 Document Revised: 06/25/2017 Document Reviewed: 06/25/2017 [employer] website Interactive Patient Education ? 2020 [employer] Abdominal Hysterectomy, Care After This sheet gives you information about how to care for yourself after your procedure. Your health care provider may also give you more specific instructions. If you have problems or questions, contact your health care provider. What can I expect after the procedure? After your procedure, it is common to have: ??? Pain. ??? Fatigue. ??? Poor appetite. ??? Less interest in sex. ??? Vaginal bleeding and discharge. You may need to use a sanitary napkin after this procedure. Follow these instructions at home: Bathing ??? Do not take baths, swim, or use a hot tub until your health care provider approves. Ask your health care provider if you can take showers. You may only be allowed to take sponge baths for bathing. ??? Keep the bandage (dressing) dry until your health care provider says it can be removed. Incision care ??? Follow instructions from your health care provider about how to take care of your incision. Make sure you: ? Wash your hands with soap and water before you change your bandage (dressing). If soap and water are not available, use hand rounder and backer. ? Change your dressing as told by your health care provider. ? Leave stitches (sutures), skin glue, or adhesive strips in place. These skin closures may need to stay in place for 2 weeks or longer. If adhesive strip edges start to loosen and curl up, you may trim the loose edges. Do not remove adhesive strips completely unless your health care provider tells you to do that. ??? Check your incision area every day for signs of infection. Check for: ? Redness, swelling, or pain. ? Fluid or blood. ? Warmth. ? Pus or a bad smell. Activity ??? Do gentle, daily exercises as told by your health care provider. You may be told to take short walks every day and go farther each time. ??? Do not lift anything that is heavier than 10 lb (4.5 kg), or the limit that your health care provider tells you, until he or she says that it is safe. ??? Do not drive or use heavy machinery while taking prescription pain medicine. ??? Do not drive for 24 hours if you were given a medicine to help you relax (sedative). ??? Follow your health care provider's instructions about exercise, driving, and general activities. Ask your health care provider what activities are safe for you. Lifestyle ??? Do not douche, use tampons, or have sex for at least 6 weeks or as told by your health care provider. ??? Do not drink alcohol until your health care provider approves. ??? Drink enough fluid to keep your urine clear or pale yellow. ??? Try to have someone at home with you for the first 1?2 weeks to help. ??? Do not use any products that contain nicotine or tobacco, such as cigarettes and e-cigarettes. These can delay healing. If you need help quitting, ask your health care provider. General instructions ??? Take rxxc-vkm-fejlgbq and prescription medicines only as told by your health care provider. ??? Do not take aspirin or ibuprofen. These medicines can cause bleeding. ??? To prevent or treat constipation while you are taking prescription pain medicine, your health care provider may recommend that you: ? Drink enough fluid to keep your urine clear or pale yellow. ? Take wxnl-fbr-cgibfml or prescription medicines. ? Eat foods that are high in fiber, such as fresh fruits and vegetables, whole grains, and beans. ? Limit foods that are high in fat and processed sugars, such as fried and sweet foods. ??? Keep all follow-up visits as told by your health care provider. This is important. Contact a health care provider if: ??? You have chills or fever. ??? You have redness, swelling, or pain around your incision. ??? You have fluid or blood coming from your incision. ??? Your incision feels warm to the touch. ??? You have pus or a bad smell coming from your incision. ??? Your incision breaks open. ??? You feel dizzy or light-headed. ??? You have pain or bleeding when you urinate. ??? You have persistent diarrhea. ??? You have persistent nausea and vomiting. ??? You have abnormal vaginal discharge. ??? You have a rash. ??? You have any type of abnormal reaction or you develop an allergy to your medicine. ??? Your pain medicine does not help. Get help right away if: ??? You have a fever and your symptoms suddenly get worse. ??? You have severe abdominal pain. ??? You have shortness of breath. ??? You faint. ??? You have pain, swelling, or redness in your leg. ??? You have heavy vaginal bleeding with blood clots. Summary ??? After your procedure, it is common to have pain, fatigue and vaginal discharge. ??? Do not take baths, swim, or use a hot tub until your health care provider approves. Ask your health care provider if you can take showers. You may only be allowed to take sponge baths for bathing. ??? Follow your health care provider's instructions about exercise, driving, and general activities. Ask your health care provider what activities are safe for you. ??? Do not lift anything that is heavier than 10 lb (4.5 kg), or the limit that your health care provider tells you, until he or she says that it is safe. ??? Try to have someone at home with you for the first 1?2 weeks to help. This information is not intended to replace advice given to you by your health care provider. Make sure you discuss any questions you have with your health care provider. Document Released: 01/24/2006 Document Revised: 06/25/2017 Document Reviewed: 06/25/2017 [employer] website Interactive Patient Education ? 2020 [employer]. documented in this encounter Plan of Treatment Not on file documented as of this encounter Visit Diagnoses Not on filedocumented in this encounter
--- OUTSIDE RECORDS SUMMARY | 2025-01-27 13:22 | XMS_ITS | Clinical Summary ---
Author Organization Healthcare Address [address] [place] [address] Care Team Providers Care Veneer Sander Name Role Phone Bobby Goyal MD Primary Care Provider [phone] Allergies Active Allergy Reactions Criticality Noted Date Comments Hydrocodone Other - please docum ent in the comment field Low 02/05/2022 nausea Penicillins Unknown - Patient st ates they do not know rxn details Low 01/11/2021 Medications levocetirizine (Xyzal) 2.5 MG/5ML solution TAKE 10 ML BY MOUTH EVERY DAY 02/14/2022 Active linaCLOtide (Linzess) 290 MCG capsule Linzess 290 MCG Oral Capsule QTY: 0 Days: 30 Refills: 0 Written: 07/02/21 Patient Instructions : 07/02/2021 Active Ozempic, 0.25 or 0.5 MG/DOSE, 2 MG/1.5ML solution pen-injector inj. pen 05/20/2022 Active Active Problems Problem Noted Date Diagnosed Date Gas pain 05/30/2022 Allergic rhinitis due to pollen 03/01/2022 Anemia 03/01/2022 Bladder spasms 03/01/2022 Mixed hyperlipidemia 03/01/2022 Moderate persistent asthma 03/01/2022 Type 2 diabetes mellitus without complication Melena 07/26/2021 Bone pain 03/01/2020 Former smoker 02/10/2020 Diabetes Chronic cough HTN (hypertension) Resolved Problems Problem Noted Date Diagnosed Date Resolved Date Hiatal hernia 02/05/2022 05/30/2022 Gallbladder polyp 01/31/2022 05/30/2022 Gastroesophageal reflux dise ase without esophagitis 05/30/2022 Immunizations Immunization Administration Dates Next Due Influenza, injectable, quadrivalent 04/25/2022 Influenza, seasonal, injectable 05/16/2020 Pneumococcal 20-rosita Conj Vaccine 04/25/2022 Tdap 04/25/2022 Family History Medical History Relation Name Comments Diabetes Maternal Grandmother Hypertension Maternal Grandmother Stroke Maternal Grandmother Diabetes Mother Hypertension Mother Polycystic kidney disease Mother Relation Name Status Comments Maternal Grandmother Mother Social History Tobacco Use Types Packs/Day Years Used Date Smoking Tobacco: Former Cigarettes 1 18 1 2008 Smokeless Tobacco: Never Alcohol Use Standard Drinks/Week Comments Yes 0 (1 standard drink = 0.6 oz pur e alcohol) 3-4 standard drinks/week PHQ-2 Answer Date Recorded Patient Health Questionnaire-2 Score 0 05/30/2022 CAGE ASSESSMENT Answer Date Recorded Cage unable to access Not on file 02/06/2022 Cage max number of drinks Not on file 2021 Cage Beverages a week Not on file 02/06/2022 Have you ever felt you should CUT down on your d rinking? 0 02/06/2022 Have you been ANNOYED by people criticizing your drinking? 0 02/06/2022 Have you felt GUILTY about your drinking? 0 02/06/2022 Have you had a drink first t funmi in the morning (EYE-SILK TRIMMER) to steady your nerves or to get rid of a hangover? 0 02/06/2022 CAGE Questionnaire Score 0 022 Comments No Sex and Gender Information Value Date Recorded Sex Assigned at Female 02/05/2022 12:25 PM EDT Legal Sex Female 6:56 PM EDT Gender Identity Female 02/05/2022 12:25 PM EDT Sexual Orientation Not on file Last Filed Vital Signs Vital Sign Reading Time Taken Comments Blood Pressure 121/86 05/30/2022 9:30 AM EST Pulse 78 05/30/2022 9:30 AM EST Temperature 36.2 C (97.1 F) 05/30/2022 9:30 AM EST Respiratory Rate 16 05/30/2022 9:30 AM EST Oxygen Saturation 96% 05/27/2022 10:20 PM EST Inhaled Oxygen Concentration - - Weight 90.4 kg (199 lb 4.7 oz) 05/30/2022 9:30 A M EST Height 166.4 cm (5' 5.5 ) 05/30/2022 9:30 AM EST Body Mass Index 32.66 05/30/2022 9:30 AM EST Plan of Treatment Health Maintenance Due Date Last Done Comments [facility]-Diabetes: Hemoglobin A1C 1980 [facility]-Infant/Child/Adol SDOH Screenings 1980 Diabetes: Dental Exam 1989 HPV Vaccines (1 - 3-dose series) 1994 [facility]- SDOH Screenings 1997 [facility]-Adult SDOH Screenings 1997 [facility]-Hepatitis B Vaccines (1 of 3 - 19+ 3-dose series) 1998 [facility]-Depression Screening 05/30/2023 05/30/2022 RIV-TMIKD-17 Vaccine ( season) 2024 05/26/2021, 09/09/2020, 08/12/2020 CT Colonography 2024 Colonoscopy 2024 FIT-DNA 2024 FIT 2024 FOBT 2024 Sigmoidoscopy 2024 [facility]-Colorectal Cancer Screening 2024 [facility]-Influenza Vaccine (#1) 03/21/202504/25, 05/16/2020 [facility]-Zoster Vaccines (1 of 2) 2029 [facility]-DTaP,Tdap,and Td Vaccine s (2 - Td or Tdap) 04/25/2032 04/25/2022 [facility]-Pneumococcal Vaccine: Pediatrics (0 to 5 Years) and At-Risk Patients (6 to 49 Years) Completed 04/25/2022 [facility]-HIV Screening Completed 05/27/2022 [facility]-Hepatitis C Screening Completed 05/27/2022 [facility]-Obesity Intervention Completed 05/30/2022 [facility]-HIB Vaccines Aged Out No longer e ligible based on patient's age to complete this topic [facility]-Hepatitis A Vaccines Aged Out No longer eligible based on patient's age to complete this topic [facility]-IPV Vaccines Aged Out No longer e ligible based on patient's age to complete this topic [facility]-Rotavirus Vaccines Aged Out No lo nger eligible based on patient's age to complete this topic Medical Devices Implanted Type Area Explosive Ordnance Disposal Manager Device Identifier Shelf Expiration Date Model / Serial / Lot Mesh Bio A 7cm X 10cm - [id number] - [id number] Implanted:Qty: 1 on 02/05/2022 by Ericka Eddy MD at [facility] Mesh N/A: Abdomen [id number] 12/11/2023 [id number] / [id number] / Procedures Procedure Name Priority Date/Time Associated Diagnosis Comments HEPATITIS C ANTIBODY - ED W/REFLEX TO HCV QUANT PCR STAT 05/27/2022 5:45 PM EST HIV 1/2 ANTIBODY/ANTIGEN SCREEN WITH REFLEX TO HIV I/II DIFFERENTIATION STAT 05/27/2022 5:45 PM EST from Last 3 Months or Most Recently Relevant to Health Maintenance Results * HIV 1 & 2 Antibody/Antigen Screen (05/27/2022 5:45 PM EST) HIV 1 & 2 Antibody/Anti gen Screen Nonreactive Nonreactive 05/27/2022 8:42 PM EST [facility] Blood Venous blood specimen / Unknown Venipuncture / Unknown 05/27/2022 5:45 PM EST 05/27/2022 6:26 PM EST us Kimberli Fontaine MD LAB BLOOD ORDERABLES Final R esult [facility] [address] [place] [address] * Hepatitis C Antibody - ED (05/27/2022 5:45 PM EST) Hepatitis C Antibody Negative Negative 05/27/2022 8:44 PM EST [facility] Blood Venous blood specimen / Unknown Venipuncture / Unknown 05/27/2022 5:45 PM EST 05/27/2022 6:27 PM EST us Kimberli Fontaine MD LAB BLOOD ORDERABLES Final R esult [facility] [address] [place] [address] from Last 3 Months or Most Recently Relevant to Health Maintenance Insurance ANTHEM Advance Directives * Full Code (Latest Code Status on File) Date Activated Date Inactivated Comments 02/05/2022 5:37 PM 02/08/2022 2:43 PM Question Answer Comments Patient has decision-making capacity? Yes Care Teams Veneer Sander Relationship Specialty Start Date End Date Bobby Goyal MD [address] [place] [address] [place] [address] PCP - General 01/11/21
--- OUTSIDE RECORDS SUMMARY | 2025-01-27 13:22 | XMS_ITS | Encounter Summary ---
Author Organization [employer] ([place], [place], [place], [place]) Address [address] [place] [address] Care Team Providers Care Poultry Packer Name Role Phone Unavailable Primary Care Provider Unavailabl e Encounter Details Date Type Department Care Team (Late st Contact Info) Description 01/24/2020 Transcribed Document [facility] [place] [facility] [place] [address] ProviderAlexander MD [address], [place] [id number] Social History Tobacco Use Types Packs/Day Years Used Date Smoking Tobacco: Never Assessed Comments Unknown Sex and Gender Information Value Date Recorded Sex Assigned at Not on file Legal Sex Female 6:06 PM CDT Gender Identity Not on file Sexual Orientation Not on file documented as of this encounter Miscellaneous Notes * Cerner Conversion Note - Historical ProviderMD - 01/24/2020 3:09 PM CDT Initial Discharge Planning Entered On: 01/24/2020 15:11 EDT Performed On: 01/24/2020 15:09 EDT by BRYCE CHENG RN-Insulator Tester Initial Assessment I Previously Documented Living Environment : No qualifying data available. Living Situation : Home Patient Lives With : Spouse Emergency Contact #1 : noah Emergency Contact #1 Emergency Contact #1 Relationship : spouse Emergency Contact #2 : `- Emergency Contact #2 Phone Number : - Emergency Contact #2 Relationship : - Enter Doctors Name : Bobby Goyal Does Patient have PCP Listed? : Yes BRYCE CHENG RN-Insulator Tester - 01/24/2020 15:09 EDT Initial Assessment II Sensory and Motor Deficits : None Current Home Treatments and Equipment : None BRYCE CHENG RN-Insulator Tester - 01/24/2020 15:09 EDT Discharge Needs I Anticipated Discharge Date : 01/25/2020 EDT Anticipated Discharge To, CM : Home with family care Current Home Treatment/Equipment : Current Home Treatment/Equipment No qualifying data available. Post Acute/Home Treatments : None Documentation Status Complete : Yes BRYCE CHENG RN-Insulator Tester - 01/24/2020 15:09 EDT Discharge Needs II Professional Skilled Services : Professional Skilled Services No qualifying data available. Needs Assistance with Transportation : No Discharge Options Discussed with Patient : Discharge transportation, Outpatient services BRYCE CHENG RN-Insulator Tester - 01/24/2020 15:09 EDT Narrative Note Narrative Note : Patient underwent hysterectomy. Lives at home, iADLs. Plan is to return home with family, no services needed at this time....................sds BRYCE CHENG RN-Insulator Tester - 01/24/2020 15:09 EDT documented in this encounter Plan of Treatment Not on file documented as of this encounter Visit Diagnoses Not on filedocumented in this encounter
--- OUTSIDE RECORDS SUMMARY | 2025-01-27 13:22 | XMS_ITS | Encounter Summary ---
Author Organization [employer] ([place], [place], [place], [place]) Address [address] [place] [address] Care Team Providers Care Finance Lead Name Role Phone Unavailable Primary Care Provider Unavailabl e Encounter Details Date Type Department Care Team (Late st Contact Info) Description 01/24/2020 Transcribed Document [facility] [place] [facility] [place] [address] ProviderAlexander MD [address] [place], [place] [address] Social History Tobacco Use Types Packs/Day Years Used Date Smoking Tobacco: Never Assessed Comments Unknown Sex and Gender Information Value Date Recorded Sex Assigned at Not on file Legal Sex Female 6:06 PM CDT Gender Identity Not on file Sexual Orientation Not on file documented as of this encounter Miscellaneous Notes * Cerner Conversion Note - Alexander ProviderMD - 01/24/2020 7:52 AM CDT [facility] [place] PACU Summary Primary Physician: ROSELYN AGUILERA MD-OBG Finalized Date/Time: 01/24/20 11:44:41 Pt. Name: KADEN PAMELAJOHN Ulloa/Sex: 1980 Female Med Rec #: [id number] Physician: ROSELYN AGUILERA MD-OBG Financial #: [id number] Pt. Type: O Room/Bed: Admit/Disch: 01/24/20 04:59:00 - Institution: [facility] [place] PACU Case Times Entry 1 In PACU I 01/24/20 09:38:00 Ready for PACU 01/24/20 10:23:00 Discharge Discharge from PACU 01/24/20 11:43:00 I Last Modified By: Brandee Dwyer RN 01/24/20 11:44:20 [facility] Main OR PACU Case Times Audit 01/24/20 11:44:20 Line Crewman: CARRIEC Modifier: CARRIEC <+> 1 Discharge from PACU I 01/24/20 11:44:14 Line Crewman: CARRIEC Modifier: CARRIEC 1 <*> Ready for PACU Discharge 01/24/20 10:08:00 [facility] Main OR PACU Acuity Entry 1 Start Time 01/24/20 10:23:00 Stop Time 01/24/20 11:43:00 Acuity Level [facility] PACU Acuity I Last Modified By: Brandee Dwyer RN 01/24/20 11:44:39 [facility] Main OR PACU Acuity Audit 01/24/20 11:44:39 Line Crewman: CARRIEC Modifier: CARRIEC 1 <*> Start Time 01/24/20 10:38:00 Finalized By: Brandee Dwyer RN Document Signatures Signed By: Brandee Dwyer RN 01/24/20 11:44 Electronically signed by Hector [facility] Conversion Segment Assembler Cerner at 11/07/2022 6:10 PM CDT documented in this encounter Plan of Treatment Not on file documented as of this encounter Visit Diagnoses Not on filedocumented in this encounter
--- OUTSIDE RECORDS SUMMARY | 2025-01-27 13:22 | XMS_ITS | Encounter Summary ---
Author Organization [employer] ([place], [place], [place], [place]) Address [address] [place] [address] Care Team Providers Care Printed Circuit Boards Solder Leveler Name Role Phone Unavailable Primary Care Provider Unavailabl e Encounter Details Date Type Department Care Team (Late st Contact Info) Description 01/25/2020 Transcribed Document [facility] [place] [facility] [place] [address] ProviderAlexander MD [address] [place] [id number] Social History Tobacco Use Types Packs/Day Years Used Date Smoking Tobacco: Never Assessed Comments Unknown Sex and Gender Information Value Date Recorded Sex Assigned at Not on file Legal Sex Female 6:06 PM CDT Gender Identity Not on file Sexual Orientation Not on file documented as of this encounter Miscellaneous Notes * Cerner Conversion Note - Historical ProviderMD - 01/25/2020 3:05 PM CDT Nursing Discharge Summary Entered On: 01/25/2020 15:06 EDT Performed On: 01/25/2020 15:05 EDT by Maureen Cannon Rn Discharge Documentation Discharge Date/Time : 01/25/2020 14:48 EDT Patient Disposition, General : Discharge Discharge To : Home with ambulatory/outpatient follow-up Mode Of Departure, General Discharge : Private vehicle Accompanied By, Discharge : Significant other IV Discontinued : Yes Pt's Own Supply of Medications Returned : No patient supply of medications to return Prescriptions Given to Patient : Yes Medications Given to Patient : No Discharge Instructions Reviewed With, Opportunity For Questions Given : Significant other Patient Education Completed : Yes Number of Prescriptions Given : 1 Teaching Method : Explanation, Printed materials Teaching Evaluation : Verbalizes understanding Maureen Cannon Rn - 01/25/2020 15:05 EDT Electronically signed by Hector [facility] Conversion Tariff Publishing Agent Cerner at 11/07/2022 5:49 PM CDT documented in this encounter Plan of Treatment Not on file documented as of this encounter Visit Diagnoses Not on filedocumented in this encounter
--- OUTSIDE RECORDS SUMMARY | 2025-01-27 13:22 | XMS_ITS | Encounter Summary ---
Author Organization [employer] ([place], [place], [place], [place]) Address [address] [place] [address] Care Team Providers Care School Manager Name Role Phone Unavailable Primary Care Provider Unavailabl e Encounter Details Date Type Department Care Team (Late st Contact Info) Description 01/18/2020 Transcribed Document [facility] [place] [address] ProviderAlexander MD [address], [place] [id number] Social History Tobacco Use Types Packs/Day Years Used Date Smoking Tobacco: Never Assessed Comments Unknown Sex and Gender Information Value Date Recorded Sex Assigned at Not on file Legal Sex Female 6:06 PM CDT Gender Identity Not on file Sexual Orientation Not on file documented as of this encounter Miscellaneous Notes * Cerner Conversion Note - Historical ProviderMD - 01/18/2020 3:25 PM CDT PAT Adult Entered On: 01/18/2020 15:29 EDT Performed On: 01/18/2020 15:25 EDT by DAVY DAY RN Height and Weight, Clinical Dosing Height Source : Stated Height Entry Format : [place] Height, Feet : 5 ft(Converted to: 152 cm, 60 Inch) Height, Inches : 5.5 Inch(Converted to: 0 ft 6 Inch, 13.97 cm) Clinical Height : 166.37 cm Weight Source : Standing scale Weight Entry Format : Coles Clinical Dosing Weight : 111.36 kg Weight, Pounds : 245 lb Body Surface Area (BSA) : 2.17 m2 Body Mass Index : 40.2 kg/m2 (>HHI) [place] Body Weight : 58 kg DAVY DAY RN - 01/18/2020 15:25 EDT Health Histories Smoking Status : Former smoker, quit more than 30 days ago Smokeless Tobacco Status : Never DAVY DAY RN - 01/18/2020 15:25 EDT Social History (As Of: 01/18/2020 15:29:24 EDT) Tobacco: Former smoker, quit more than 30 days ago Smoking Status. Never Smokeless Tobacco Status. (Last Updated: 01/18/2020 15:25:15 EDT by DAVY DAY, RN) Alcohol: Alcohol Use History Yes. Use in Last 12 Months: No. Alcohol Use Frequency Socially. (Last Updated: 01/18/2020 15:25:15 EDT by DAVY DAY, RN) Substance Abuse: Drug Use Hx: No. Use in Last 12 Months: No. (Last Updated: 01/18/2020 15:25:15 EDT by DAVY DAY, CHANTELL) Infectious Disease History Has the patient ever been tested for COVID-19? : Yes, Patient stated results Negative COVID19 Screening : No Experiencing Infectious Disease Symptoms : No symptoms Physical contact outside [place] in the last 30 days : No Infectious Disease Symptoms Score : 0 Infectious Disease History : Chicken pox/Shingles, Mononucleosis Tuberculosis Symptoms : Night Sweats, Persistent Cough > 3 weeks DAVY DAY RN - 01/18/2020 15:25 EDT COVID19 PreProcedure Screening Is this an Emergent or Add on Procedure? : No Has patient been isolated since the test : N/A - PreProcedure, in-person visit Exposed to COVID19 symptoms since test? : N/A - PreProcedure, in-person visit DAVY DAY RN - 01/18/2020 15:25 EDT Tuberculosis Screen Tuberculosis Screen Grid Institutional Living Facility Employee : No Health Care Employee : No History of Exposure to Tuberculosis : No History of Positive Chest X-Ray for Tuberculosis : No History of Positive Skin Test for Tuberculosis : No HIV-AIDS, Immunosuppression Hx or Drugs : No Homeless : No History of Positive Quantiferon Gold Tuberculosis Testing : No In or From Foreign Country Last 6 Months : No Resident Institutional Living Facility : No Exposure to Travelers Outside the [place] : No DAVY DAY RN - 01/18/2020 15:25 EDT Anesthesia/Transfusion History Family History of Anesthesia Reaction : No prior transfusion(s) Transfusion History : Prior anesthesia without reaction Family History of Anesthesia Reaction : None DAVY DAY RN - 01/18/2020 15:25 EDT Functional Assessment Functional ADL Evaluation Index EBN Bathing : Independent (2) Dressing : Independent (2) Toileting : Independent (2) Transferring Bed or Chair : Independent (2) Continence : Independent (2) Feeding : Independent (2) DAVY DAY RN - 01/18/2020 15:25 EDT ADL Index Score : 12 DAVY DAY RN - 01/18/2020 15:25 EDT Advance Directive Patient has Advance Directive *Q : Yes, Advance Directive not with the patient Advance Directive Type : Living will Copy Advance Directive Verified/on Chart : No DAVY DAY RN - 01/18/2020 15:25 EDT [place] Suicide Severity Rating Scale (C-SSRS) CSSRS Past Month Wish to be : No CSSRS Past Month Suicidal Thoughts : No CSSRS Lifetime Suicide Behavior : No Suicide Severity Rating Score : 0 Suicide Severity Rating : No Additional Care Required at this time DAVY DAY RN - 01/18/2020 15:25 EDT Psychosocial History Do You Have a History of the Following? : Patient denies history Currently in Unsafe Situation : No DAVY DAY RN - 01/18/2020 15:25 EDT Teaching/Learning Assessment Barriers To Learning : None evident Individuals Taught : Patient Readiness to Learn : Cooperative Readiness to Learn : Explanation DAVY DAY RN - 01/18/2020 15:25 EDT Education Topics, Periop Preadmission Perioperative Education Grid Arrival Time/Place : Verbalizes understanding CHG Preoperative Bathing/Cloths : Verbalizes understanding Infection Control : Verbalizes understanding NPO Status/Directions : Verbalizes understanding Preprocedure Preparations : Verbalizes understanding Preprocedure Tests/Labs : Verbalizes understanding Remove Body Piercings : Verbalizes understanding Responsible Adult : Verbalizes understanding Take/Hold Medications Pre-Procedure : Verbalizes understanding DAVY DAY RN - 01/18/2020 15:25 EDT General Info Want Family/Rep/Phys Notified of Admit : No Emergency Contact #1 : noah Emergency Contact #1 Emergency Contact #1 Relationship : spouse Emergency Contact #2 : `- Emergency Contact #2 Phone Number : - Emergency Contact #2 Relationship : - Primary Language : Persian Communication Barrier : None Senior Payroll Specialist Needed : No DAVY DAY RN - 01/18/2020 15:25 EDT Yonathan Scale Yonathan Sensory Perception : No impairment Yonathan Moisture : Rarely moist Yonathan Activity : Walks frequently Yonathan Mobility : No limitation Yonathan Nutrition : Excellent Yonathan Friction and Shear : No apparent problem Yonathan Score : 23 DAVY DAY RN - 01/18/2020 15:25 EDT Sleep Apnea Risk Assmt Hx of Obstructive Sleep Apnea Diagnosis : No Snore Loudly : No Tired, Fatigued, or Sleepy During Day : No Observed Stopping Breathing During Sleep : No Have/Are Being Treated for Hypertension : Yes BMI Greater Than 35 kg/m2 : Yes Age over 50 Years Old : No Neck Circumference Greater Than 40 cm : No Gender Male : No STOP-BANG Sleep Apnea Risk Level Score : 2 DAVY DAY RN - 01/18/2020 15:25 EDT Electronically signed by Anais Young Conversion President Financial Institution Cerner at 11/07/2022 5:48 PM CDT documented in this encounter Plan of Treatment Not on file documented as of this encounter Visit Diagnoses Not on filedocumented in this encounter
--- OUTSIDE RECORDS SUMMARY | 2025-01-27 13:22 | XMS_ITS | Encounter Summary ---
Author Organization [employer] ([place], [place], [place], [place]) Address [address] [place] [address] Care Team Providers Care Yarn Dry Room Worker Name Role Phone Unavailable Primary Care Provider Unavailabl e Encounter Details Date Type Department Care Team (Late st Contact Info) Description 01/25/2020 Transcribed Document [facility] [place] [facility] [place] [address] ProviderAlexander MD [address] [place] [place] [id number] Social History Tobacco Use Types Packs/Day Years Used Date Smoking Tobacco: Never Assessed Comments Unknown Sex and Gender Information Value Date Recorded Sex Assigned at Not on file Legal Sex Female 6:06 PM CDT Gender Identity Not on file Sexual Orientation Not on file documented as of this encounter Miscellaneous Notes * Cerner Conversion Note - Alexander Arteaga MD - 01/25/2020 8:43 AM CDT DATE OF ADMISSION: 01/24/2020 DATE OF DISCHARGE: 01/25/2020 IDENTIFICATION: The patient is a pleasant 39-year-old female who was admitted for a robotic-assisted total laparoscopic hysterectomy because of abnormal bleeding and significant pain and issues. She had massive adhesions noted at the time of surgery, but both fallopian tubes were removed as well as her uterus. She did quite well. She was discharged on the 1st postoperative day, is ambulating, and tolerating a regular diet. She has good bowel sounds. Her exam is within normal limits, CAT scan, vaginal discharge. Her postop hemoglobin is pending at the time of this dictation but she verbalized understanding, will be followed in the office in 1 week or sooner if need be for followup. She understands the precautions and instructions and she will be discharged on Percocet #10 as needed for pain as well as her home medications and the and she both verbalized understanding about precautions and instructions such as calling p.r.n. fever, vomiting, or heavy vaginal bleeding, etc. /[id number] MD MARIO PhippsB/EDELMIRA / LSB / MODL /[id number] documented in this encounter Plan of Treatment Not on file documented as of this encounter Visit Diagnoses Not on filedocumented in this encounter
--- OUTSIDE RECORDS SUMMARY | 2025-01-27 13:22 | XMS_ITS | Encounter Summary ---
Author Organization [employer] ([place], [place], [place], [place]) Address [address] [place] [address] Care Team Providers Care Fisher Seal Name Role Phone Unavailable Primary Care Provider Unavailabl e Encounter Details Date Type Department Care Team (Late st Contact Info) Description 01/24/2020 Transcribed Document [facility] [place] [place] [address] ProviderAlexander MD [address] [place] [address] Social History Tobacco Use Types Packs/Day Years Used Date Smoking Tobacco: Never Assessed Comments Unknown Sex and Gender Information Value Date Recorded Sex Assigned at Not on file Legal Sex Female 6:06 PM CDT Gender Identity Not on file Sexual Orientation Not on file documented as of this encounter Miscellaneous Notes * Cerner Conversion Note - Historical ProviderMD - 01/24/2020 5:00 AM CDT Chart Check - Review Order Profile Entered On: 01/24/2020 12:11 EDT Performed On: 01/24/2020 5:00 EDT by Alexys Love, Rn Chart Check Powerplans Initiated/Discontinued as Appropriate : Yes All Active Orders Reviewed : Yes Alexys Love, Rn - 01/24/2020 12:11 EDT documented in this encounter Plan of Treatment Not on file documented as of this encounter Visit Diagnoses Not on filedocumented in this encounter
--- OUTSIDE RECORDS SUMMARY | 2025-01-27 13:22 | XMS_ITS | Encounter Summary ---
Author Organization [employer] ([place], [place], [place], [place]) Address [address] [place] [address] Care Team Providers Care End Lathe Operator Name Role Phone Unavailable Primary Care Provider Unavailabl e Encounter Details Date Type Department Care Team (Late st Contact Info) Description 01/24/2020 Transcribed Document [facility] [place] Family Medicine [facility] [place] [address] ProviderAlexander MD [address], [place] [id number] Social History Tobacco Use Types Packs/Day Years Used Date Smoking Tobacco: Never Assessed Comments Unknown Sex and Gender Information Value Date Recorded Sex Assigned at Not on file Legal Sex Female 6:06 PM CDT Gender Identity Not on file Sexual Orientation Not on file documented as of this encounter Miscellaneous Notes * Cerner Conversion Note - Historical ProviderMD - 01/24/2020 5:00 PM CDT Chart Check - Review Order Profile Entered On: 01/24/2020 17:38 EDT Performed On: 01/24/2020 17:00 EDT by Alexys Love, Rn Chart Check Powerplans Initiated/Discontinued as Appropriate : Yes All Active Orders Reviewed : Yes Alexys Love, Rn - 01/24/2020 17:38 EDT documented in this encounter Plan of Treatment Not on file documented as of this encounter Visit Diagnoses Not on filedocumented in this encounter
--- OUTSIDE RECORDS SUMMARY | 2025-01-27 13:22 | XMS_ITS | Encounter Summary ---
Author Organization [employer] ([place], [place], [place], [place]) Address [address] [place] [address] Care Team Providers Care Hvac/R Instructor Name Role Phone Unavailable Primary Care Provider Unavailabl e Encounter Details Date Type Department Care Team (Late st Contact Info) Description 01/25/2020 Transcribed Document [facility] Family Medicine [facility] [place] [address] ProviderAlexander MD [address] [place] [address] [id number] Social History Tobacco Use Types Packs/Day Years Used Date Smoking Tobacco: Never Assessed Comments Unknown Sex and Gender Information Value Date Recorded Sex Assigned at Not on file Legal Sex Female 6:06 PM CDT Gender Identity Not on file Sexual Orientation Not on file documented as of this encounter Miscellaneous Notes * Cerner Conversion Note - Alexander Arteaga MD - 01/25/2020 1:52 PM CDT [place] [id number] PAMELA ALFONSO :1980 Visit Time:01/24/2020 Your Visit Summary Your Care Team Admitting Physician - ROSELYN AGUILERA MD-OBG Attending Physician - ROSELYN AGUILERA MD-OBG Primary Care Physician - HANY SPARKS (REF), -INT Referring Physician - ROSELYN AGUILERA MD-OBG BUTLER, LARRY S, MD-OBHANY COFFMAN (REF), -INT Your Diagnosis Abdominal adhesions Abnormal uterine bleeding (AUB) Adhesions of uterus Chronic pelvic pain of female Dysmenorrhea Excessive and frequent menstruation with irregular cycle, Excessive and frequent menstruation with irregular cycle These Are Your Goals be pain free and go home What to do next Instructions From Your Care Team Discharge Activity: Discharge Activity: No strenuous activities Diet: Discharge Diet: Heart healthy diet Follow-Up Appointments Follow Up with ROSELYN AGUILERA When Within 1 week Where: [address] [place] [address]- [employer] (1) Medications What How Much When Instructions Next Dose docusate (Doculase 100 mg oral capsule) 1 Capsule(s) Oral At Bedtime as needed for for constipation tonight metFORMIN 500 Milligram(s) Oral At Bedtime tonight olmesartan (olmesartan 20 mg oral tablet) 1 Tablet(s) Oral At Bedtime tonight lansoprazole 30 Milligram(s) Oral Every Day tomorrow Take your medications faithfully. Do NOT skip medication. Do NOT stop taking medications without the direction of a physician. Carry a list of your medications with you at all times, and take this medication list with you to your first follow up visit. Report any side effects. Avoid herbal remedies unless discussed with your physician. As part of your treatment plan, your physician may have prescribed a limited course of a controlled substance. This medication may be given to help people with moderate or severe pain or for other medical conditions, but there are risks involved with treatment. Common side effects may include nausea, constipation, drowsiness, sweating, itching, dry mouth, and rash. More serious side effects may include cognitive and motor impairment, like problems with thinking, concentrating, alertness, and movement (e.g. slowed reflexes), and driving and operating heavy machinery can be dangerous. It is important for you to talk to your physician if you have these side effects or questions. These controlled substances can produce physical dependence and be habit-forming if taken for an extended period of time, which means that the body has gotten used to them and may experience withdrawal symptoms if they are abruptly stopped. Withdrawal symptoms can include runny nose, sweating, goose bumps, diarrhea, abdominal cramping, rapid heartbeat, difficulty sleeping, and nervousness. Please dispose of unused and medications per your retail pharmacy guidance. Allergies No Known Allergies No Known Medication Allergies Immunizations This Visit No Immunizations Found Education Materials Abdominal Hysterectomy, Care After This sheet gives [...] cannot use soap and water, use hand wood floor layer. ? Change your bandage as told by [...] at home with you for the first 1???2 weeks to help. ??? Do not use any products that contain nicotine or tobacco, such as cigarettes and e-cigarettes. These can slow down healing. If you need help quitting, ask your doctor. General instructions ??? Take lpmr-fog-vctwsym and prescription medicines only as told by your doctor. ??? Do not take aspirin or ibuprofen. These medicines can cause bleeding. ??? To prevent or treat constipation while you are taking prescription pain medicine, your doctor may suggest that you: ? Drink enough fluid to keep your urine clear or pale yellow. ? Take fsnx-fvb-lzlehqa or prescription medicines. ? Eat foods that [...] at home with you for the first 1???2 weeks to help. This information is not intended to replace advice given to you by your health care provider. Make sure you discuss any questions you have with your health care provider. Document Released: 04/15/2009 Document Revised: 06/25/2017 Document Reviewed: 06/25/2017 [employer] Patient Education ?? 2020 [employer]. Abdominal Hysterectomy, Care After This sheet gives [...] and water are not available, use hand wood floor layer. ? Change your dressing as told by [...] at home with you for the first 1???2 weeks to help. ??? Do not use any products that contain nicotine or tobacco, such as cigarettes and e-cigarettes. These can delay healing. If you need help quitting, ask your health care provider. General instructions ??? Take ntoj-jcc-vbbrzek and prescription medicines only as told by your health care provider. ??? Do not take aspirin or ibuprofen. These medicines can cause bleeding. ??? To prevent or treat constipation while you are taking prescription pain medicine, your health care provider may recommend that you: ? Drink enough fluid to keep your urine clear or pale yellow. ? Take ymgn-eeb-jwnarcn or prescription medicines. ? Eat foods that [...] at home with you for the first 1???2 weeks to help. This information is not intended to replace advice given to you by your health care provider. Make sure you discuss any questions you have with your health care provider. Document Released: 01/24/2006 Document Revised: 06/25/2017 Document Reviewed: 06/25/2017 [employer] Interactive Patient Education ?? 2020 [employer]. acetaminophen and oxycodone (a SEET a MIN oh fen and OX i KOE done) Endocet 10/325, Endocet 2.5/325, Endocet 5/325, Endocet 7.5/325, Nalocet, Percocet, Primlev What is the most important information I should know about acetaminophen and oxycodone? MISUSE OF OPIOID MEDICINE CAN CAUSE ADDICTION, OVERDOSE, OR . Keep the medication in a place where others cannot get to it. An overdose of acetaminophen can damage your liver or cause . Call your doctor at once if you have pain in your upper stomach, loss of appetite, dark urine, or jaundice (yellowing of your skin or eyes). Taking opioid medicine during may cause life-threatening withdrawal symptoms in the . Fatal side effects can occur if you use opioid medicine with alcohol, or with other drugs that cause drowsiness or slow your breathing. Stop taking this medicine and call your doctor right away if you have skin redness or a rash that spreads and causes blistering and peeling. What is acetaminophen and oxycodone? Acetaminophen and oxycodone is a combination medicine used to relieve moderate to severe pain. Acetaminophen and oxycodone may also be used for purposes not listed in this medication guide. What should I discuss with my healthcare provider before taking acetaminophen and oxycodone? You should not use this medicine if you are allergic to acetaminophen or oxycodone, or if you have: ?? severe asthma or breathing problems; or ?? a blockage in your stomach or intestines. Tell your doctor if you have ever had: ?? breathing problems, sleep apnea; ?? liver disease; ?? a drug or alcohol addiction; ?? kidney disease; ?? a head injury or seizures; ?? urination problems; or ?? problems with your thyroid, pancreas, or gallbladder. If you use opioid medicine while you are , your baby could become dependent on the drug. This can cause life-threatening withdrawal symptoms in the baby after it is born. Babies born dependent on opioids may need medical treatment for several weeks. Do not breastfeed. This medicine can pass into breast milk and cause drowsiness, breathing problems, or in a nursing baby. How should I take acetaminophen and oxycodone? Follow all directions on your prescription label. Never take this medicine in larger amounts, or for longer than prescribed. An overdose can damage your liver or cause . Tell your doctor if you feel an increased urge to use more of this medicine. Never share this medicine with another person, especially someone with a history of drug abuse or addiction. MISUSE CAN CAUSE ADDICTION, OVERDOSE, OR . Keep the medicine in a place where others cannot get to it. Selling or giving away acetaminophen and oxycodone is against the law. Measure liquid medicine carefully. Use the dosing syringe provided, or use a medicine dose-measuring device (not a kitchen spoon). If you need surgery or medical tests, tell the doctor ahead of time that you are using this medicine. You should not stop using this medicine suddenly. Follow your doctor's instructions about tapering your dose. Store at room temperature away from moisture and heat. Keep track of your medicine. You should be aware if anyone is using it improperly or without a prescription. Do not keep leftover opioid medication. Just one dose can cause in someone using this medicine accidentally or improperly. Ask your pharmacist where to locate a drug take-back disposal program. If there is no take-back program, flush the unused medicine down the toilet. What happens if I miss a dose? Since this medicine is used for pain, you are not likely to miss a dose. Skip any missed dose if it is almost time for your next dose. Do not use two doses at one time. What happens if I overdose? Seek emergency medical attention or call the Poison Help line at . An overdose of acetaminophen and oxycodone can be fatal. The first signs of an acetaminophen overdose include loss of appetite, nausea, vomiting, stomach pain, sweating, and confusion or weakness. Later symptoms may include pain in your upper stomach, dark urine, and yellowing of your skin or the whites of your eyes. Overdose can also cause severe muscle weakness, pinpoint pupils, very slow breathing, extreme drowsiness, or coma. What should I avoid while taking acetaminophen and oxycodone? Avoid driving or operating machinery until you know how this medicine will affect you. Dizziness or drowsiness can cause falls, accidents, or severe injuries. Do not drink alcohol. Dangerous side effects or could occur. Ask a doctor or pharmacist before using any other medicine that may contain acetaminophen (sometimes abbreviated as APAP). Taking certain medications together can lead to a fatal overdose. What are the possible side effects of acetaminophen and oxycodone? Get emergency medical help if you have signs of an allergic reaction: hives; difficulty breathing; swelling of your face, lips, tongue, or throat. Opioid medicine can slow or stop your breathing, and may occur. A person caring for you should seek emergency medical attention if you have slow breathing with long pauses, blue colored lips, or if you are hard to wake up. In rare cases, acetaminophen may cause a severe skin reaction that can be fatal. This could occur even if you have taken acetaminophen in the past and had no reaction. Stop taking this medicine and call your doctor right away if you have skin redness or a rash that spreads and causes blistering and peeling. Call your doctor at once if you have: ?? noisy breathing, sighing, shallow breathing, breathing that stops during sleep; ?? a light-headed feeling, like you might pass out; ?? weakness, tiredness, fever, unusual bruising or bleeding; ?? confusion, unusual thoughts or behavior; ?? problems with urination; ?? liver problems--nausea, upper stomach pain, tiredness, loss of appetite, dark urine, yuridia-colored stools, jaundice (yellowing of the skin or eyes); or ?? low cortisol levels-- nausea, vomiting, loss of appetite, dizziness, worsening tiredness or weakness. Seek medical attention right away if you have symptoms of serotonin syndrome, such as: agitation, hallucinations, fever, sweating, shivering, fast heart rate, muscle stiffness, twitching, loss of coordination, nausea, vomiting, or diarrhea. Serious side effects may be more likely in older adults and those who are overweight, malnourished, or debilitated. Long-term use of opioid medication may affect fertility (ability to have children) in men or women. It is not known whether opioid effects on fertility are permanent. Common side effects include: ?? dizziness, drowsiness, feeling tired; ?? feelings of extreme happiness or sadness; ?? nausea, vomiting, stomach pain; ?? constipation; or ?? headache. This is not a complete list of side effects and others may occur. Call your doctor for medical advice about side effects. You may report side effects to FDA at 1-676-DKB-5865. What other drugs will affect acetaminophen and oxycodone? You may have breathing problems or withdrawal symptoms if you start or stop taking certain other medicines. Tell your doctor if you also use an antibiotic, antifungal medication, heart or blood pressure medication, seizure medication, or medicine to treat HIV or hepatitis C. Opioid medication can interact with many other drugs and cause dangerous side effects or . Be sure your doctor knows if you also use: ?? cold or allergy medicines, bronchodilator asthma/COPD medication, or a diuretic ('water pill'); ?? medicines for motion sickness, irritable bowel syndrome, or overactive bladder; ?? other narcotic medications--opioid pain medicine or prescription cough medicine; ?? a sedative like Valium--diazepam, alprazolam, lorazepam, Xanax, Klonopin, Versed, and others; ?? drugs that make you sleepy or slow your breathing--a sleeping pill, muscle relaxer, medicine to treat mood disorders or mental illness; ?? drugs that affect serotonin levels in your body--a stimulant, or medicine for depression, Parkinson's disease, migraine headaches, serious infections, or nausea and vomiting. This list is not complete. Other drugs may affect acetaminophen and oxycodone, including prescription and jrlb-tkp-hstrvui medicines, vitamins, and herbal products. Not all possible interactions are listed here. Where can I get more information? Your doctor or pharmacist can provide more information about acetaminophen and oxycodone. Remember, keep this and all other medicines out of the reach of children, never share your medicines with others, and use this medication only for the indication prescribed. Every effort has been made to ensure that the information provided by [employer] is accurate, up-to-date, and complete, but no guarantee is made to that effect. Drug information contained herein may be time sensitive. [employer] information has been compiled for use by healthcare practitioners and consumers in the [place] and therefore [employer] does not warrant that uses outside of the [place] are appropriate, unless specifically indicated otherwise. [employer]'s drug information does not endorse drugs, diagnose patients or recommend therapy. [employer] drug information is an informational resource designed to assist licensed healthcare practitioners in caring for their patients and/or to serve consumers viewing this service as a supplement to, and not a substitute for, the expertise, skill, knowledge and judgment of healthcare practitioners. The absence of a warning for a given drug or drug combination in no way should be construed to indicate that the drug or drug combination is safe, effective or appropriate for any given patient. [facility] does not assume any responsibility for any aspect of healthcare administered with the aid of information [facility] provides. The information contained herein is not intended to cover all possible uses, directions, precautions, warnings, drug interactions, allergic reactions, or adverse effects. If you have questions about the drugs you are taking, check with your doctor, nurse or pharmacist. Copyright 9542-1713 [employer]. Version: . Revision Date: 08/11/2019. Emergency Awareness and Preventative Care STROKE is an EMERGENCY Every Minute Counts Act FAST and Check for these signs: FACE Does the face look uneven? ARM Does one arm drift down? SPEECH Does their speech sound strange? TIME Call at any sign of stroke Stroke Risk Factors Atrial Fibrillation (irregular heartbeat) Diabetes Family history of stroke Heart Disease Heavy alcohol use High Blood Pressure High Cholesterol Physical inactivity and obesity Smoking Cigarette Smoking The facts are clear, cigarette smoking will shorten your life. Smoking can cause many illnesses along the way. As a healthcare provider, we recommend that you stop smoking. Assistance with quitting is available by contacting 3-343-DNMI-NOW. This is a free resource providing counseling, support, and referral. Or you may contact your personal physician. National Suicide Prevention Lifeline: The National Suicide Prevention Lifeline is a national network of local crisis centers that provides free and confidential emotional support to people in suicidal crisis or emotional distress 24 hours a day, 7 days a week. Don't Wait! Stop a Heart Attack Before it Starts What is a heart attack? A heart attack is damage or to a part of the heart from severely decreased or lack of blood flow to the heart. Over time, arteries can become narrow from the buildup of fat and cholesterol, which is called plaque. The plaque can rupture causing a blood clot to form. When the blood clot forms, the artery can become severely narrowed or completely blocked, causing a heart attack. Heart attack is the leading cause of in the [place]. 85% of muscle damage occurs within the first 2 hours. Delay in the recognition of heart attack symptoms increases the chances of . Know the early symptoms of a heart attack: Nausea Feeling of fullness in chest Jaw Pain Pain that travels down one or both arms Fatigue/being tired Anxiety Back Pain Chest pressure, squeezing, or discomfort Shortness of breath Sweating, or a cold sweat Feeling of impending doom There are unusual signs of a heart attack, too! Women, the elderly, and diabetics may present with atypical symptoms: Fainting/dizziness Weakness Confusion Risk Factors for a Heart Attack Some heart disease risk factors, such as age and family history, cannot be changed. Others, like smoking and lack of exercise, can be changed. Smoking High Cholesterol High Blood Pressure Family History Obesity Age Gender (Males are at higher risk) Lack of Exercise Diabetes Diet Stress Excessive Alcohol Intake If you or someone you know is experiencing the signs and symptoms of a heart attack, DON???T DELAY. Call immediately and seek help. If someone collapses, perform CPR! Do not attempt to drive if you are having symptoms of heart attack. Hands-Only CPR Why Hands-Only CPR? Hands-Only CPR has been shown to be as effective as conventional CPR for cardiac arrests that occur outside of a hospital. Survival depends on immediately receiving CPR from someone nearby. How do you perform Hands-Only CPR? There are two easy steps: Call if you see a teen or adult collapse Push hard and fast in the center of the chest at a beat of 100 beats per minute. Save a life! 4 WAYS TO GET AHEAD OF SEPSIS SEPSIS is a MEDICAL EMERGENCY. Time matters! Infections put you and your family at risk for a life-threatening condition called sepsis. Sepsis is the body's extreme response to an infection. It is life-threatening, and without timely treatment, sepsis can rapidly lead to tissue damage, organ failure, and . Sepsis happens when an infection you already have-in your skin, lungs, urinary tract or somewhere else-triggers a chain reaction throughout your body. 1 PREVENT INFECTIONS Take good care of chronic conditions. Talk to your doctor about getting the recommended vaccines. 2 PRACTICE GOOD HYGIENE Wash your hands frequently. Keep cuts or open sores clean and covered until they are healed. 3 KNOW THE SYMPTOMS Confusion or disorientation Shortness of breath High heart rate Fever, shivering, or feeling very cold Extreme pain or discomfort Clammy or sweaty skin 4 ACT FAST Get medical care IMMEDIATELY if you suspect sepsis or if you have an infection that is not getting better or is getting worse. To learn more about sepsis and how to prevent infections, visit www.cdc.gov/sepsis. Test Results Laboratory or Other Results This Visit (last charted value for your 01/24/2020 visit) Hematology 01/25/2020 9:04 AM Hct: 32.1 % -- Normal range between ( 34.1 and 44.9 ) Hgb: 9.8 Gram/dL -- Normal range between ( 11.2 and 15.7 ) 01/18/2020 3:24 PM WBC: 9.1 K/uL -- Normal range between ( 3.9 and 10.0 ) RBC: 4.27 Million/uL -- Normal range between ( 3.93 and 5.22 ) Platelet Count: 294 K/uL -- Normal range between ( 163 and 369 ) MCH: 25.5 pg -- Normal range between ( 25.6 and 32.2 ) MCHC: 31.2 Gram/dL -- Normal range between ( 32.3 and 36.5 ) MCV: 81.7 fL -- Normal range between ( 79.0 and 94.8 ) Slide Review: No Eos %: 2.4 % -- Normal range between ( 1.0 and 7.0 ) Nobles #: 0.59 K/uL -- Normal range between ( 0.24 and 0.82 ) Eos #: 0.22 K/uL -- Normal range between ( 0.04 and 0.54 ) Nobles %: 6.5 % -- Normal range between ( 4.7 and 12.5 ) Baso %: 0.4 % -- Normal range between ( 0.0 and 1.0 ) Baso #: 0.04 K/uL -- Normal range between ( 0.01 and 0.08 ) RDW: 13.9 % -- Normal range between ( 11.6 and 14.4 ) Neut %: 67.9 % -- Normal range between ( 34.0 and 71.0 ) Neut #: 6.19 K/uL -- Normal range between ( 1.56 and 6.13 ) Lymph %: 22.5 % -- Normal range between ( 19.3 and 53.0 ) Lymph #: 2.05 K/uL -- Normal range between ( 1.18 and 3.74 ) MPV: 9.7 fL -- Normal range between ( 9.4 and 12.4 ) IG#: 0 x10(3)/uL IG%: 0 % -- Normal range between ( 0 and 1 ) Microbiology 01/21/2020 1:38 PM Novel Coronavirus 2019: Not Detected Blood Bank 01/24/2020 6:29 AM ABO/Rh Repeat: A NEG 01/24/2020 6:22 AM ABO/Rh: A NEG Antibody Screen (Tube): Negative [facility]SC General Chemistry 01/25/2020 6:35 AM Glucose POC2: 142 mg/dL -- Normal range between ( 70 and 110 ) 01/18/2020 3:24 PM Creatinine Level: 0.74 mg/dL -- Normal range between ( 0.55 and 1.02 ) Sodium Level: 139 mmol/L -- Normal range between ( 136 and 146 ) Potassium Level: 3.9 mmol/L -- Normal range between ( 3.5 and 5.1 ) Chloride Level: 106 mmol/L -- Normal range between ( 102 and 112 ) Carbon Dioxide Level: 25 mmol/L -- Normal range between ( 21 and 32 ) Anion Gap: 12 -- Normal range between ( 9 and 20 ) Bun/Creatinine: 10.8 -- Normal range between ( 8.0 and 20.0 ) Calcium Level: 8.9 mg/dL -- Normal range between ( 8.5 and 10.1 ) eGFR : >60 mL/min/1.73m2 eGFR NonAfrican: >60 mL/min/1.73m2 Glucose Level: 107 mg/dL -- Normal range between ( 74 and 106 ) Blood Urea Nitrogen: 8 mg/dL -- Normal range between ( 7 and 22 ) Coagulation 01/18/2020 3:24 PM INR: 0.9 -- Normal range between ( 0.9 and 1.1 ) PTT: 29.2 Second(s) -- Normal range between ( 24.2 and 31.8 ) PT: 9.8 Second(s) -- Normal range between ( 9.6 and 11.5 ) Endocrinology 01/18/2020 3:24 PM Estradiol Level: 103.0 pg/mL FSH: 1.6 mIU/mL Anti Mullerian Hormone: 1.94 ng/mL Diagnostic Radiology 01/18/2020 3:55 PM CR Chest 2 Vws: CR Chest 2 Vws Patient Name:PAMELA ALFONSO I have received and understand this information and was given the opportunity to ask questions. Patient/Physical Testing Supervisor Name: Patient/Physical Testing Supervisor Signature: Relationship to Patient: Clinician/Hospital Physical Testing Supervisor Signature: Date: documented in this encounter Plan of Treatment Not on file documented as of this encounter Visit Diagnoses Not on filedocumented in this encounter
--- OUTSIDE RECORDS SUMMARY | 2025-01-27 13:22 | XMS_ITS | Encounter Summary ---
Author Organization [employer] ([place], [place], [place], [place]) Address [address] [place] [address] Care Team Providers Care Therapeutic Radiologist Name Role Phone Unavailable Primary Care Provider Unavailabl e Encounter Details Date Type Department Care Team (Late st Contact Info) Description 01/24/2020 Transcribed Document [facility] [place] Family Medicine [facility] [place] [address] ProviderAlexander MD [address] [place] [id number] Social History Tobacco Use Types Packs/Day Years Used Date Smoking Tobacco: Never Assessed Comments Unknown Sex and Gender Information Value Date Recorded Sex Assigned at Not on file Legal Sex Female 6:06 PM CDT Gender Identity Not on file Sexual Orientation Not on file documented as of this encounter Miscellaneous Notes * Cerner Conversion Note - Alexander Arteaga MD - 01/24/2020 9:25 AM CDT DATE OF PROCEDURE: 01/24/2020 SURGEON: Bob Bowles MD CHECK CLERK: BRANDON Montiel PREOPERATIVE DIAGNOSES: 1. Heavy abnormal uterine bleeding, menorrhagia. 2. Anemia. 3. Borderline diabetes. 4. Hypertension. 5. Irritable bowel syndrome. 6. Sensory urge incontinence. POSTOPERATIVE DIAGNOSES: 1. Heavy abnormal uterine bleeding, menorrhagia. 2. Anemia. 3. Borderline diabetes. 4. Hypertension. 5. Irritable bowel syndrome. 6. Sensory urge incontinence. 7. Severe abdominal pelvic adhesions. PROCEDURE: 1. Robotic-assisted total laparoscopic hysterectomy with bilateral salpingectomy. 2. Lysis of severe abdominal adhesions (20 minutes). 3. Diagnostic cystoscopy. COMPLICATIONS: Without. ESTIMATED BLOOD LOSS: Approximately 75 to 100 cc. IDENTIFICATION: Patient is a delightful 39-year-old, G2, P2, referred from Dr. Francis Crane Mars[place], for the above-mentioned history and diagnoses. She had failed conservative attempts of managing her issues. She was worked up by him before referral to me. Patient was elected to go with the above procedure. All the entailed risks were discussed at length in the preop clinical arena. Signed. PROCEDURE IN DETAIL: Patient was taken to the operating room, where she underwent general endotracheal anesthesia. After prepping and draping the abdominovaginal cavity, the patient was prepped and draped in the typical fashion. Grissom catheter inserted. Examination under anesthesia failed to reveal any masses. We went ahead and placed a PRISCILLA uterine manipulator for the robotic portion as we then assumed my position for the trocar placement. The time-out was completed before though and was correct. The time-out was complete again and was correct as we placed the supraumbilical 8 mm trocar with a #11 blade coming with a direct puncture Optiview technique. Once we were in intraperitoneal, we hooked up the high-flow CO2 insufflation. We then placed 2 more trocars. The robotic working arm 1 and 2 about 10 cm lateral on both sides of the camera port with 11 blade coming under direct puncture technique with direct visualization again. We then placed a right mid quadrant port and again an 8 mm port was utilized to help for the suture placement and for my assistance working port. Once these were all placed, we saw we had severe adhesions of the omentum to the anterior abdominal wall. The uterus was adhered to both sidewalls, but the anterior uterus was pretty much plastered to the anterior abdominal wall. The appendix was noted to be within normal limits with no hyperemia. The gallbladder was normal in appearance as was the liver. We then went ahead and begun the procedure as I assumed my position at the console. After that, we docked the robot and with the PK grasper in the left working port and a monopolar scissors on the right port. We very carefully took down the all of these adhesions about 20-minute process from the anterior abdominal wall, taking the uterus off the anterior abdominal wall as well as the omental adhesions that were significant. Also, both fallopian tubes were adhered and we very carefully took down the fallopian tubes. I had to be very careful as we got to the bladder flap with the previous 2 C-sections with the bladder flap was adhered down, but we did dissect that free and that we got down the pubovesical fascia. We pushed the peritoneum off the pubovesical fascia. We then took down both fallopian tubes after freeing up the ovaries very carefully with meticulous dissection, and we transected the mesosalpinx, freeing up the fallopian tube from its attachments. We then transected the ovarian ligament and the round ligament with the PK grasper with the bipolar current and incised it, and we then skeletonized both uterine vessels as we had already pushed down the bladder flap very nicely over the edge of the PRISCILLA. We then cauterized the uterine vessels on both sides with a burn-burn cut technique and we then cut down on the edge of the PRISCILLA with the edge of the monopolar scissors on the coag current and we completely enucleated the vaginal wall from the cervical attachments and the uterus was then delivered through the vaginal orifice. We had some oozing along the vaginal cuff edge, which we took care of with the monopolar coag current with the scissors and we irrigated the pelvis profusely. We then closed both angles with [address]-1 needle, catching the cardinal complex and the uterosacrals to help put a good angle suture on both sides and interrupted suture technique. We then brought in the 0 Stratafix and we ran the cuff with a running lock suture into 2 layers, we closed the vaginal cuff. We then irrigated the pelvis profusely and it was free of clots and debris. As we thought the pressure down to 7 mm, we saw that we had good hemostasis. The trocars were then removed. We then injected the wounds with 0.5% Marcaine with and closed with 4-0 Monocryl in a subcu fashion. I went ahead and we injected indigo carmine. We saw good dye jets on both ureteral orifices with a 70-degree cystoscope. We took pictures. There was a little leukoplakia on the trigone, but the bladder mucosa was entirely normal. The procedure was then terminated at that point as we reinserted the Grissom catheter. The patient was taken to postop recovery room in satisfactory condition. /[id number] MD AFSANEH Phipps/AQ / AFSANEH / MODL /[id number] Electronically signed by Hector, [facility] Conversion Silk Blocker Cerner at 11/07/2022 6:03 PM CDT documented in this encounter Plan of Treatment Not on file documented as of this encounter Visit Diagnoses Not on filedocumented in this encounter
--- OUTSIDE RECORDS SUMMARY | 2025-01-27 13:22 | XMS_ITS | Encounter Summary ---
Author Organization [employer] ([place], [place], [place], [place]) Address [address] [place] [address] Care Team Providers Care Air And Missile Defense Crewmember Name Role Phone Unavailable Primary Care Provider Unavailabl e Encounter Details Date Type Department Care Team (Late st Contact Info) Description 01/24/2020 Transcribed Document [facility] [place] Family Medicine [facility] [place] [address] ProviderAlexander MD [address] [place] [address] Social History Tobacco Use Types Packs/Day Years Used Date Smoking Tobacco: Never Assessed Comments Unknown Sex and Gender Information Value Date Recorded Sex Assigned at Not on file Legal Sex Female 6:06 PM CDT Gender Identity Not on file Sexual Orientation Not on file documented as of this encounter Miscellaneous Notes * Cerner Conversion Note - Historical ProviderMD - 01/24/2020 12:10 PM CDT Provider Notification Entered On: 01/24/2020 12:12 EDT Performed On: 01/24/2020 12:10 EDT by Alexys Love Rn Provider Notification Provider Notified of : Patient Arrival Alexys Love Rn - 01/24/2020 12:12 EDT documented in this encounter Plan of Treatment Not on file documented as of this encounter Visit Diagnoses Not on filedocumented in this encounter
--- OUTSIDE RECORDS SUMMARY | 2025-01-27 13:22 | XMS_ITS | Encounter Summary ---
Author Organization [employer] ([place], [place], [place], [place]) Address [address] [place] [address] Care Team Providers Care Newspaper Journalist Name Role Phone Unavailable Primary Care Provider Unavailabl e Encounter Details Date Type Department Care Team (Late st Contact Info) Description 01/24/2020 Transcribed Document [facility] [place] [facility] [place] [address] ProviderAlexander MD [address] [place], [place] [id number] Social History Tobacco Use Types Packs/Day Years Used Date Smoking Tobacco: Never Assessed Comments Unknown Sex and Gender Information Value Date Recorded Sex Assigned at Not on file Legal Sex Female 6:06 PM CDT Gender Identity Not on file Sexual Orientation Not on file documented as of this encounter Miscellaneous Notes * Cerner Conversion Note - Historical ProviderMD - 01/24/2020 11:39 AM CDT Event Note Entered On: 01/24/2020 11:39 EDT Performed On: 01/24/2020 11:39 EDT by Brandee Dwyer RN Event Note Event Date/Time : 01/24/2020 11:39 EDT Description of Event : Dr Bowles's order initiated in PACU per his request before pt goes upstairs Brandee Dwyer, CHANTELL - 01/24/2020 11:39 EDT Electronically signed by Anais Young Conversion Oncology Transplant Network Manager Ceroneal at 11/07/2022 5:56 PM CDT documented in this encounter Plan of Treatment Not on file documented as of this encounter Visit Diagnoses Not on filedocumented in this encounter
--- OUTSIDE RECORDS SUMMARY | 2025-01-27 13:22 | XMS_ITS | Encounter Summary ---
Author Organization [employer] ([place], [place], [place], [place]) Address [address] [place] [address] Care Team Providers Care Banana Ripening Room Supervisor Name Role Phone Unavailable Primary Care Provider Unavailabl e Encounter Details Date Type Department Care Team (Late st Contact Info) Description 01/24/2020 Transcribed Document [facility] [place] Medicine On [facility] of [facility] [place] [address] ProviderAlexander MD [address] [place] [address] [id number] Social History Tobacco Use Types Packs/Day Years Used Date Smoking Tobacco: Never Assessed Comments Unknown Sex and Gender Information Value Date Recorded Sex Assigned at Not on file Legal Sex Female 6:06 PM CDT Gender Identity Not on file Sexual Orientation Not on file documented as of this encounter Miscellaneous Notes * Cerner Conversion Note - Alexander ProviderMD - 01/24/2020 7:52 AM CDT Steve Main OR PreOp Summary Primary Physician: ROSELYN AGUILERA MD-OBG Finalized Date/Time: 01/27/20 10:15:29 Pt. Name: KADEN PAMELA ALEX Ulloa/Sex: 1980 Female Med Rec #: [id number] Physician: ROSELYN AGUILERA MD-OBG Financial #: [id number] Pt. Type: O Room/Bed: 417/1 Admit/Disch: 01/24/20 04:59:00 - 01/25/20 14:48:00 Institution: [facility] [place] PreOp Case Times Entry 1 In Preop 01/24/20 05:20:00 Ready for Holding n/a Room Patient Ready for 01/24/20 06:51:00 Surgery Patient Out of Preop 01/24/20 07:23:00 Patient Out of n/a Holding Room Last Modified By: PHILL SMALLWOOD 01/27/20 10:15:29 SJSteve PreOp Case Times Audit 01/27/20 10:15:29 Finishing Tunnel Operator: DUSTY Modifier: CATLETDD <+> 1 Patient Out of Preop Finalized By: PHILL SMALLWOOD Document Signatures Signed By: PHILL SMALLWOOD 01/27/20 10:15 Electronically signed by Shahriar Young Conversion Electrical Engineering Professor Cerner at 11/07/2022 6:05 PM CDT documented in this encounter Plan of Treatment Not on file documented as of this encounter Visit Diagnoses Not on filedocumented in this encounter
--- OUTSIDE RECORDS SUMMARY | 2025-01-27 13:22 | XMS_ITS | Encounter Summary ---
Author Organization [employer] ([place], [place], [place], [place]) Address [address] [place] [address] Care Team Providers Care Thermodynamic Physicist Name Role Phone Unavailable Primary Care Provider Unavailabl e Encounter Details Date Type Department Care Team (Late st Contact Info) Description 01/24/2020 Transcribed Document [facility] [place] Family Medicine [facility] [place] [address] ProviderAlexander MD [address] [place] [address] Social History Tobacco Use Types Packs/Day Years Used Date Smoking Tobacco: Never Assessed Comments Unknown Sex and Gender Information Value Date Recorded Sex Assigned at Not on file Legal Sex Female 6:06 PM CDT Gender Identity Not on file Sexual Orientation Not on file documented as of this encounter Miscellaneous Notes * Cerner Conversion Note - Historical ProviderMD - 01/24/2020 11:39 AM CDT Valuables and Belongings Entered On: 01/24/2020 12:12 EDT Performed On: 01/24/2020 11:39 EDT by Alexys Love Rn Valuables and Belongings Valuables and Belongings : Clothing, Jewelry Clothing : Common streetwear Clothing Disposition : Sent to locker Jewelry : Ring Jewelry Disposition : Sent to locker Alexys Love Rn - 01/24/2020 12:12 EDT documented in this encounter Plan of Treatment Not on file documented as of this encounter Visit Diagnoses Not on filedocumented in this encounter
--- OUTSIDE RECORDS SUMMARY | 2025-01-27 13:22 | XMS_ITS | Encounter Summary ---
Author Organization [employer] ([place], [place], [place], [place]) Address [address] [place] [address] Care Team Providers Care Corrugator Name Role Phone Unavailable Primary Care Provider Unavailabl e Encounter Details Date Type Department Care Team (Late st Contact Info) Description 01/18/2020 Transcribed Document [facility] [place] Family Medicine [facility] [place] [address] ProviderAlexander MD [address] [place] [address] [id number] Social History Tobacco Use Types Packs/Day Years Used Date Smoking Tobacco: Never Assessed Comments Unknown Sex and Gender Information Value Date Recorded Sex Assigned at Not on file Legal Sex Female 6:06 PM CDT Gender Identity Not on file Sexual Orientation Not on file documented as of this encounter Miscellaneous Notes * Cerner Conversion Note - Alexander Arteaga MD - 01/18/2020 3:59 PM CDT DATE OF ADMISSION: 01/24/2020 ADMITTING PHYSICIAN: ROSELYN AGUILERA MD DATE OF SURGERY: 01/24/2020. PREOPERATIVE DIAGNOSES: 1. Heavy abnormal uterine bleeding, uncontrolled by conservative treatments. 2. Anemia. 3. Borderline diabetes. 4. Hypertension. 5. Irritable bowel syndrome. 6. Menorrhagia. 7. Sensory urge incontinence. PROCEDURE PLANNED: 1. Robotic-assisted total laparoscopic hysterectomy with bilateral salpingectomy. 2. Possible lysis of adhesions, possible excision of endometrial implants, possible appendectomy, possible culdoplasty, and diagnostic cystoscopy. IDENTIFICATION: Patient is a 39-year-old G2, P2, referred from Dr. Francis Crane with abnormal bleeding, which has really been troubling the patient for about [address] Crane had done a workup with ultrasound, etc. and the patient has been anemic with this heavy bleeding down to 9.4 when last checked in our office. We talked about treatment. She denies dyspareunia, but does have some irritable bowel syndrome history in the past, but after discussing the various alternatives, she wants to have definitive surgery. We talked about treatment options because she has had 2 C-sections with no vaginal births and she has a very high cervix that doesn't descend real well, decision for the robotic-assisted approach was made. The risks of these operations were discussed at length including damage to bowel, bladder, ureter, bleeding, infection, reaction to anesthesia were discussed at length. The Q-tip test in the office only revealed about a 20 to 25 degree Q-tip deflection, so decision not to do a bladder sling was agreed upon. PAST MEDICAL HISTORY/OPERATIONS: She has had section x2. She has had tubal ligation. ALLERGIES: She has no known drug allergies. MEDICATIONS: 1. Albuterol. 2. Fiber supplements. 3. Stool softeners. 4. Metformin. 5. Olmesartan. 6. MiraLAX. test was negative on 01/18/2020. PHYSICAL EXAMINATION: GENERAL: Shows a well-developed, obese female. VITAL SIGNS: Weight 240. Her BMI is 39. Blood pressure 142/90. NECK: Supple. THYROID: Palpates normal. CHEST: Clear to auscultation. CARDIOVASCULAR: Normal sinus rhythm without murmurs or gallops. BREASTS: Check deferred. ABDOMEN: Soft, marked for slightly obese abdomen. section scars appreciated. : Shows a generous uterus, but it is not very mobile and cervix is pretty high on bimanual exam. ASSESSMENT: As above. PLAN: As above. /[id number] MD AFSANEH Phipps/EDELMIRA / LSClara / MODL Electronically signed by Hector, [facility] Conversion Back Panel Padder Cerner at 11/07/2022 5:53 PM CDT documented in this encounter Plan of Treatment Not on file documented as of this encounter Visit Diagnoses Not on filedocumented in this encounter
--- OUTSIDE RECORDS SUMMARY | 2025-01-27 13:22 | XMS_ITS | Encounter Summary ---
Author Organization [email or web address] ([place], [place], [place], [place]) Address [address] [place] [address] Care Team Providers Care Chain Maker Name Role Phone Unavailable Primary Care Provider Unavailabl e Encounter Details Date Type Department Care Team (Late st Contact Info) Description 01/25/2020 Transcribed Document [facility] [place] Family Medicine [facility] [place] [address] ProviderAlexander MD [address] [place] [address] Social History Tobacco Use Types Packs/Day Years Used Date Smoking Tobacco: Never Assessed Comments Unknown Sex and Gender Information Value Date Recorded Sex Assigned at Not on file Legal Sex Female 6:06 PM CDT Gender Identity Not on file Sexual Orientation Not on file documented as of this encounter Miscellaneous Notes * Cerner Conversion Note - Historical ProviderMD - 01/25/2020 1:47 PM CDT Stroke/Warfarin Instructions Entered On: 01/25/2020 13:47 EDT Performed On: 01/25/2020 13:47 EDT by Maureen Cannon Rn Stroke/Warfarin Instructions Stroke/TIA Discharge Ins : N/A Warfarin Discharge Ins : N/A Maureen Cannon Rn - 01/25/2020 13:47 EDT documented in this encounter Plan of Treatment Not on file documented as of this encounter Visit Diagnoses Not on filedocumented in this encounter
--- OUTSIDE RECORDS SUMMARY | 2025-01-27 13:22 | XMS_ITS | Encounter Summary ---
Author Organization [employer] ([place], [place], [place], [place]) Address [address] [place] [address] Care Team Providers Care Field Tech Name Role Phone Unavailable Primary Care Provider Unavailabl e Encounter Details Date Type Department Care Team (Late st Contact Info) Description 01/24/2020 Transcribed Document [facility] [place] [facility] [place] [address] ProviderAlexander MD [facility] [place], [place] [id number] Social History Tobacco Use Types Packs/Day Years Used Date Smoking Tobacco: Never Assessed Comments Unknown Sex and Gender Information Value Date Recorded Sex Assigned at Not on file Legal Sex Female 6:06 PM CDT Gender Identity Not on file Sexual Orientation Not on file documented as of this encounter Miscellaneous Notes * Cerner Conversion Note - Alexander ProviderMD - 01/24/2020 11:38 AM CDT Pain Assessment Entered On: 01/24/2020 15:30 EDT Performed On: 01/24/2020 16:17 EDT by Alexys Love Rn Intervention Information: acetaminophen-oxyCODONE Performed by Alexys Love Rn on 01/24/2020 15:17:00 EDT acetaminophen-oxyCODONE,1Tab Oral,Pain (Severe 7-10) Pain Assessment Pain Assessment : Follow-up assessment Pain Scale Goal : 3 Pain Scale Used : FACES Alexys Love Rn - 01/24/2020 15:30 EDT Pain Scale Intensity : 3 Alexys Love Rn - 01/24/2020 15:30 EDT Image 4 - Images currently included in the form version of this document have not been included in the text rendition version of the form. Electronically signed by Anais Young Conversion Cardiopulmonary Technologist Chief Cerner at 11/10/2022 5:16 PM CDT documented in this encounter Plan of Treatment Not on file documented as of this encounter Visit Diagnoses Not on filedocumented in this encounter
--- OUTSIDE RECORDS SUMMARY | 2025-01-27 13:22 | XMS_ITS | Encounter Summary ---
Author Organization [employer] ([place], [place], [place], [place]) Address [address] [place] [address] Care Team Providers Care Automatic Toe Laster Name Role Phone Unavailable Primary Care Provider Unavailabl e Encounter Details Date Type Department Care Team (Late st Contact Info) Description 01/24/2020 Transcribed Document [facility] [place] Family Medicine [facility] [place] [address] ProviderAlexander MD [address] [place], [place] [phone] Social History Tobacco Use Types Packs/Day Years Used Date Smoking Tobacco: Never Assessed Comments Unknown Sex and Gender Information Value Date Recorded Sex Assigned at Not on file Legal Sex Female 6:06 PM CDT Gender Identity Not on file Sexual Orientation Not on file documented as of this encounter Miscellaneous Notes * Cerner Conversion Note - Alexander ProviderMD - 01/24/2020 3:11 PM CDT Final Discharge Planning Entered On: 01/24/2020 15:11 EDT Performed On: 01/24/2020 15:11 EDT by BRYCE CHENG RN-Motor Tune Up Specialist Final Discharge Planning Discharge Arrangements : Patient Post-Acute Information Patient Name: PAMELA ALFONSO Gender: Female : [birth year] Age: 39 Years No Post-Acute Placement(s) Listed No Post-Acute Service(s) Listed No [place] Referral(s) Listed Transportation Needs : Family/Friend Follow Up Appointment Scheduled : Yes Is Patient High/Moderate Readmission Risk? : No Patient/Family Notified of Plan : Yes Discharge To Care Management : Home/Residential/Residential or Self Care -01 BRYCE CHENG, RN-Motor Tune Up Specialist - 01/24/2020 15:11 EDT documented in this encounter Plan of Treatment Not on file documented as of this encounter Visit Diagnoses Not on filedocumented in this encounter
--- OUTSIDE RECORDS SUMMARY | 2025-01-27 13:22 | XMS_ITS | Encounter Summary ---
Author Organization [employer] ([place], [place], [place], [place]) Address [address] [place] [address] Care Team Providers Care Post Graduate Intern Name Role Phone Unavailable Primary Care Provider Unavailabl e Encounter Details Date Type Department Care Team (Late st Contact Info) Description 01/25/2020 Transcribed Document [facility] [place] [address] ProviderAlexander MD [address] [place] [address] Social History Tobacco Use Types Packs/Day Years Used Date Smoking Tobacco: Never Assessed Comments Unknown Sex and Gender Information Value Date Recorded Sex Assigned at Not on file Legal Sex Female 6:06 PM CDT Gender Identity Not on file Sexual Orientation Not on file documented as of this encounter Miscellaneous Notes * Cerner Conversion Note - Historical ProviderMD - 01/25/2020 8:47 AM CDT Patient: PAMELA ALFONSO Age: 39 years Sex: Female : 1980 Associated Diagnoses: None Author: ROSELYN AGUILERA MD-OBG pt doing well and ready for d/c. present and understands precautions and instructions for d/c. exam wnl with good bowel sounds and scant vag d/c. am hgb is pending. f/u with me in one week. dc meds, percocet and home meds. roselyn valentine Electronically signed by [facility], [facility] Conversion Tire Changer Ceroneal at 11/07/2022 5:53 PM CDT documented in this encounter Plan of Treatment Not on file documented as of this encounter Visit Diagnoses Not on filedocumented in this encounter
--- OUTSIDE RECORDS SUMMARY | 2025-01-27 13:22 | XMS_ITS | Encounter Summary ---
Author Organization [employer] ([place], [place], [place], [place]) Address [address] [place] [address] Care Team Providers Care Air Brake Man Name Role Phone Unavailable Primary Care Provider Unavailabl e Encounter Details Date Type Department Care Team (Late st Contact Info) Description 01/25/2020 Transcribed Document [facility] [place] [facility] [place] [address] ProviderAlexander MD [address] [place] [address] Social History Tobacco Use Types Packs/Day Years Used Date Smoking Tobacco: Never Assessed Comments Unknown Sex and Gender Information Value Date Recorded Sex Assigned at Not on file Legal Sex Female 6:06 PM CDT Gender Identity Not on file Sexual Orientation Not on file documented as of this encounter Miscellaneous Notes * Cerner Conversion Note - Historical ProviderMD - 01/25/2020 5:00 AM CDT Chart Check - Review Order Profile Entered On: 01/25/2020 8:24 EDT Performed On: 01/25/2020 5:00 EDT by Carol Maloney Rn Chart Check Powerplans Initiated/Discontinued as Appropriate : Yes All Active Orders Reviewed : Yes Carol Maloney Rn - 01/25/2020 8:24 EDT documented in this encounter Plan of Treatment Not on file documented as of this encounter Visit Diagnoses Not on filedocumented in this encounter
--- OUTSIDE RECORDS SUMMARY | 2025-01-27 13:22 | XMS_ITS | Encounter Summary ---
Author Organization [employer] ([place], [place], [place], [place]) Address [address] [place] [address] Care Team Providers Care Human Resource Advisor Name Role Phone Unavailable Primary Care Provider Unavailabl e Encounter Details Date Type Department Care Team (Late st Contact Info) Description 01/25/2020 Transcribed Document [facility] [place] [facility] [place] [address] ProviderAlexander MD [address] [place] [address] Social History Tobacco Use Types Packs/Day Years Used Date Smoking Tobacco: Never Assessed Comments Unknown Sex and Gender Information Value Date Recorded Sex Assigned at Not on file Legal Sex Female 6:06 PM CDT Gender Identity Not on file Sexual Orientation Not on file documented as of this encounter Miscellaneous Notes * Cerner Conversion Note - Historical ProviderMD - 01/25/2020 2:00 AM CDT Creative Arts Music Therapist Details Entered On: 01/25/2020 8:23 EDT Performed On: 01/25/2020 2:00 EDT by Carol Maloney Rn Order Details Transport Mode Order Detail : Wheelchair Isolation Precautions Order Detail : Standard Precautions Order Detail : 0 IV Order Detail : 1 Oxygen Order Detail : 0 Lift/Transfer : Minimal Central Line Order Detail : No Room Service : Appropriate Arterial Line : No Carol Maloney Rn - 01/25/2020 8:23 EDT documented in this encounter Plan of Treatment Not on file documented as of this encounter Visit Diagnoses Not on filedocumented in this encounter
--- OUTSIDE RECORDS SUMMARY | 2025-01-27 13:22 | XMS_ITS | Encounter Summary ---
Author Organization [employer] ([place], [place], [place], [place]) Address [address] [place] [address] Care Team Providers Care Home Care Assistant Name Role Phone Unavailable Primary Care Provider Unavailabl e Encounter Details Date Type Department Care Team (Late st Contact Info) Description 01/24/2020 Transcribed Document [facility] [place] [facility] [place] [address] ProviderAlexander MD [address] [place], [place] [address] Social History Tobacco Use Types Packs/Day Years Used Date Smoking Tobacco: Never Assessed Comments Unknown Sex and Gender Information Value Date Recorded Sex Assigned at Not on file Legal Sex Female 6:06 PM CDT Gender Identity Not on file Sexual Orientation Not on file documented as of this encounter Miscellaneous Notes * Cerner Conversion Note - Historical ProviderMD - 01/24/2020 6:31 AM CDT Pre Procedure Adult Entered On: 01/24/2020 6:36 EDT Performed On: 01/24/2020 6:31 EDT by Suha Franco Rn Height and Weight, Clinical Dosing Height Source : Stated Height Entry Format : [place] Height, Feet : 5 ft(Converted to: 152 cm, 60 Inch) Height, Inches : 5.5 Inch(Converted to: 0 ft 6 Inch, 13.97 cm) Clinical Height : 166.37 cm Weight Source : Standing scale Weight Entry Format : [place] Clinical Dosing Weight : 110.45 kg Weight, Pounds : 243 lb Body Surface Area (BSA) : 2.16 m2 Body Mass Index : 39.9 kg/m2 ([place]) [place] Body Weight : 58 kg Suha Franco Rn - 01/24/2020 6:31 EDT Health Histories Smoking Status : Former smoker, quit more than 30 days ago Smokeless Tobacco Status : Never Suha Franco Rn - 01/24/2020 6:31 EDT Social History (As Of: 01/24/2020 06:36:53 EDT) Tobacco: Former smoker, quit more than [...] COVID-19? : Yes, Patient stated results Negative Where was the COVID-19 Testing completed? : [facility] Date of COVID-19 Test : 01/21/2020 EDT COVID19 Screening : No Experiencing Infectious Disease Symptoms : No symptoms Physical contact outside [place] in the last 30 days : No Infectious Disease Symptoms Score : 0 Infectious Disease History : Chicken pox/Shingles, Mononucleosis Tuberculosis Symptoms : Night Sweats, Persistent Cough > 3 weeks Suha Franco Rn - 01/24/2020 6:31 EDT COVID19 PreProcedure Screening Is this an Emergent or Add on Procedure? : No Date of COVID-19 test known? : Yes Date of COVID-19 Test : 01/21/2020 EDT Has patient been isolated since the test : Yes Exposed to COVID19 symptoms since test? : No Suha Franco Rn - 01/24/2020 6:31 EDT Tuberculosis Screen Tuberculosis Screen Grid Institutional [...] to Travelers Outside the [place] : No Shua Franco Rn - 01/24/2020 6:31 EDT Anesthesia/Transfusion History Family History of Anesthesia Reaction : No prior transfusion(s) Transfusion History : Prior anesthesia without reaction Family History of Anesthesia Reaction : None Suha Franco Rn - 01/24/2020 6:31 EDT Functional Assessment Living Situation : Home Patient Lives With : Spouse Persons Assisting Patient at Home : Child/Children, Spouse Current Daily Living Assistance : None Sensory Deficits : None Mobility Assistance Prior to Admission : Independent Current Home Treatments : Blood glucose monitoring Suha Franco Rn - 01/24/2020 6:31 EDT [place] Suicide Severity Rating Scale (C-SSRS) CSSRS Past Month Wish to be : No CSSRS Past Month Suicidal Thoughts : No CSSRS Lifetime Suicide Behavior : No Suicide Severity Rating Score : 0 Suicide Severity Rating : No Additional Care Required at this time Suha Franco Rn - 01/24/2020 6:31 EDT Psychosocial History Do You Have a History of the Following? : Patient denies history Currently in Unsafe Situation : No Suha Franco Rn - 01/24/2020 6:31 EDT Advance Directive Patient has Advance Directive *Q : Yes, Advance Directive not with the patient Advance Directive Type : Living will Copy Advance Directive Verified/on Chart : No Suha Franco Rn - 01/24/2020 6:31 EDT Spiritual/Cultural Needs Any Spiritual/Cultural Needs or Requests : No Suha Franco Rn - 01/24/2020 6:31 EDT Teaching/Learning Assessment Barriers To Learning : None evident Individuals Taught : Patient Readiness to Learn : Cooperative Readiness to Learn : Explanation, Printed materials Learning Style Preferences Patient : Printed materials, Verbal explanation Learning Style Preferences Family : Printed materials, Verbal explanation Suha Franco Rn - 01/24/2020 6:31 EDT Education Topics, Periop Preadmission Perioperative Education Grid Falls : Verbalizes understanding IV's : Verbalizes understanding Preprocedure Preparations : Verbalizes understanding Preprocedure Tests/Labs : Verbalizes understanding Responsible Adult : Verbalizes understanding Suha Franco Rn - 01/24/2020 6:31 EDT General Info Arrived From : Home Mode of Arrival on Unit : Ambulatory Patient Arrival Date/Time : 01/24/2020 5:20 EDT Legal Guardian : Unaccompanied Want Family/Rep/Phys Notified of Admit : No Emergency Contact #1 : noah Emergency Contact #1 Emergency Contact #1 Relationship : spouse Emergency Contact #2 : `- Emergency Contact #2 Phone Number : - Emergency Contact #2 Relationship : - Primary Language : Guatemalan Communication Barrier : None Rd Manager Needed : No Suha Franco Rn - 01/24/2020 6:31 EDT Vital Measurements Temperature Source : Oral Temperature Mode : Fahrenheit Temperature, Fahrenheit : 97.9 Deg F Clinical Temperature, C : 36.6 Deg C Peripheral Pulse Rate : 76 bpm Respiratory Rate : 16 Breaths/Min Systolic Blood Pressure : 143 mmHg ([place]) Diastolic Blood Pressure : 76 mmHg Oxygen Saturation : 99 % Oxygen Therapy Mode : Room air Suha Franco Rn - 01/24/2020 6:31 EDT Sleep Apnea Risk Assmt Hx of [...] Sleep Apnea Risk Level Score : 2 Suha Franco Rn - 01/24/2020 6:31 EDT Yonathan Scale Yonathan Sensory Perception : No impairment Yonathan Moisture : Rarely moist Yonathan Activity : Walks frequently Yonathan Mobility : No limitation Yonathan Nutrition : Adequate Yonathan Friction and Shear : No apparent problem Yonathan Score : 22 Suha Franco Rn - 01/24/2020 6:31 EDT Oxygen Therapy Oxygen Therapy Mode : Room air Suha Franco Rn - 01/24/2020 6:31 EDT Pain Assessment Pain Assessment : Initial assessment Pain Scale Used : 0-10 Scale Suha Franco Rn - 01/24/2020 6:31 EDT Fall Risk Scales ABCs Fall Injury Risk Identification : None RIVERA Hx Falls Immediate/Within 3 Months : No Rivera Secondary Diagnosis : Yes RIVERA Use of Ambulatory Aid : None RIVERA IV Therapy or IV Access : Yes Rivera Gait/Transferring : Normal, bedrest, immobile Rivera Mental Status : Oriented to own ability Rivera Fall Risk Score : 35 RIVERA Fall Scale Risk Level : 25-45 Medium Risk [place] Fall Interventions : Adequate lighting, Bed in low position, Call device within reach, Hourly comfort/safety rounds, Non-slip footwear, Personal items within reach, Reinforced to call for assistance before getting out of bed, Room free of clutter/spills, Upper side-rails up, Wheels locked, Wires/Cords secured Barriers to Learning : None evident Suha Franco Rn - 01/24/2020 6:31 EDT Education Topics, Day of Surgery DayofSurgery Education Grid Anesthesia/Sedation : Verbalizes understanding Family Instructions : Verbalizes understanding IV's : Verbalizes understanding Plan of Care : Verbalizes understanding Responsible Adult : Verbalizes understanding Suha Franco Rn - 01/24/2020 6:31 EDT Valuables and Belongings Valuables and Belongings : Clothing, Jewelry Clothing : Common streetwear Clothing Disposition : Sent to locker Jewelry : Ring Jewelry Disposition : Sent to locker Suha Franco Rn - 01/24/2020 6:31 EDT Pain Scale Intensity : 0 Suha Franco Rn - 01/24/2020 6:31 EDT Image 4 - Images currently included in the form version of this document have not been included in the text rendition version of the form. Guerrero Coma [place] Best Motor Response : Obey commands Guerreor Best Verbal Response : Oriented Guerrero Eye Opening Response : Spontaneous [place] Coma Score : 15 Suha Franco Rn - 01/24/2020 6:31 EDT documented in this encounter Plan of Treatment Not on file documented as of this encounter Visit Diagnoses Not on filedocumented in this encounter
--- OUTSIDE RECORDS SUMMARY | 2025-01-27 13:22 | XMS_ITS | Encounter Summary ---
Author Organization [employer] ([place], [place], [place], [place]) Address [address] [place] [address] Care Team Providers Care Heat Treater Head Name Role Phone Unavailable Primary Care Provider Unavailabl e Encounter Details Date Type Department Care Team (Late st Contact Info) Description 01/24/2020 Transcribed Document [facility] [place] [facility] [place] [address] ProviderAlexander MD [address] [place] [id number] Social History Tobacco Use Types Packs/Day Years Used Date Smoking Tobacco: Never Assessed Comments Unknown Sex and Gender Information Value Date Recorded Sex Assigned at Not on file Legal Sex Female 6:06 PM CDT Gender Identity Not on file Sexual Orientation Not on file documented as of this encounter Miscellaneous Notes * Cerner Conversion Note - Alexander ProviderMD - 01/24/2020 3:11 PM CDT On Going Discharge Planning Entered On: 01/24/2020 15:11 EDT Performed On: 01/24/2020 15:11 EDT by BRYCE CHENG RN-Compliance ExaminerFur Stretcher Progress Note Discharge Arrangements : Patient Post-Acute Information Patient Name: PAMELA ALFONSO Gender: Female : [birth year] Age: 39 Years No Post-Acute Placement(s) Listed No Post-Acute Service(s) Listed No [place] Referral(s) Listed Discharge Options Discussed with Patient : Discharge transportation, Outpatient services Barriers to Discharge Identified : Clinical Condition of Patient, Follow-Up appointments needed Barriers to Discharge Unresolved : Clinical Condition of Patient BRYCE CHENG, CHANTELL-Compliance Examiner - 01/24/2020 15:11 EDT Electronically signed by Hector, [facility] Conversion Coagulation Operator Cerner at 11/07/2022 6:12 PM CDT documented in this encounter Plan of Treatment Not on file documented as of this encounter Visit Diagnoses Not on filedocumented in this encounter
--- OUTSIDE RECORDS SUMMARY | 2025-01-27 13:23 | XMS_ITS | Encounter Summary ---
Author Organization Healthcare Address [address] [place] [address] Care Team Providers Care Gambling Monitor Name Role Phone Bobby Goyal MD Primary Care Provider [phone] Encounter Details Date Type Department Care Team (Late st Contact Info) Description 02/08/2020 Orders Only External Location [address] [place] [id number] Provider, External Social History Tobacco Use Types Packs/Day Years Used Date Smoking Tobacco: Never Assessed Comments Unknown Sex and Gender Information Value Date Recorded Sex Assigned at Female 02/05/2022 12:25 PM EDT Legal Sex Female 6:56 PM EDT Gender Identity Female 02/05/2022 12:25 PM EDT Sexual Orientation Not on file documented as of this encounter Plan of Treatment Not on file documented as of this encounter Procedures Procedure Name Priority Date/Time Associated Diagnosis Comments CT THORACIC OUTSIDE IMAGES 02/08/2020 4:35 PM EDT documented in this encounter Results * CT THORACIC OUTSIDE IMAGES (02/08/2020 4:35 PM EDT) Anatomical Region Laterality Modality Computed Tomogra phy 02/08/2020 4:35 PM EDT us External Provider IMG CT PROCEDURES Final Result documented in this encounter Visit Diagnoses Not on filedocumented in this encounter Care Teams Gambling Monitor Relationship Specialty Start Date End Date Bobby Goyal MD [address] [place] [address] [place] [address] PCP - General 01/11/21 documented as of this encounter
--- OUTSIDE RECORDS SUMMARY | 2025-01-27 13:23 | XMS_ITS | Clinical Summary ---
Author Organization [employer] ([place], [place], [place], [place]) Address [address] [place] [address] Care Team Providers Care Script Reader Name Role Phone Unavailable Primary Care Provider Unavailabl e Social History Tobacco Use Types Packs/Day Years Used Date Smoking Tobacco: Never Assessed Comments Unknown Sex and Gender Information Value Date Recorded Sex Assigned at Not on file Legal Sex Female 6:06 PM CDT Gender Identity Not on file Sexual Orientation Not on file Plan of Treatment Not on file
--- OUTSIDE RECORDS SUMMARY | 2025-01-27 13:23 | XMS_ITS | Referral Summary ---
Author Organization [employer] ([place], [place], [place], [place]) Address [address] [place] [address] Care Team Providers Care Webmethods Architect Name Role Phone Unavailable Primary Care Provider [...]
--- OUTSIDE RECORDS SUMMARY | 2025-01-27 13:23 | XMS_ITS | Encounter Summary ---
Author Organization [employer] ([place], [place], [place], [place]) Address [address] [place] [address] Care Team Providers Care Gas Dispatcher Name Role Phone Unavailable Primary Care Provider Unavailabl e Encounter Details Date Type Department Care Team (Late st Contact Info) Description 01/24/2020 Transcribed Document [facility] [place] [facility] [place] [address] ProviderAlexander MD [address] [place], [place] [id number] Social History Tobacco Use Types Packs/Day Years Used Date Smoking Tobacco: Never Assessed Comments Unknown Sex and Gender Information Value Date Recorded Sex Assigned at Not on file Legal Sex Female 6:06 PM CDT Gender Identity Not on file Sexual Orientation Not on file documented as of this encounter Miscellaneous Notes * [employer]ner Conversion Note - Historical ProviderMD - 01/24/2020 12:10 PM CDT Advance Directive Entered On: 01/24/2020 12:12 EDT Performed On: 01/24/2020 12:10 EDT by Alexys Love Rn Advance Directive Patient has Advance Directive *Q : Yes, Advance Directive not with the patient Advance Directive Type : Living will Copy Advance Directive Verified/on Chart : No Alexys Love Rn - 01/24/2020 12:12 EDT documented in this encounter Plan of Treatment Not on file documented as of this encounter Visit Diagnoses Not on filedocumented in this encounter
--- OUTSIDE RECORDS SUMMARY | 2025-01-27 13:23 | XMS_ITS | Encounter Summary ---
Author Organization [employer] ([place], [place], [place], [place]) Address [address] [place] [address] Care Team Providers Care Diagnostic Technician Name Role Phone Unavailable Primary Care Provider Unavailabl e Encounter Details Date Type Department Care Team (Late st Contact Info) Description 01/24/2020 Transcribed Document [facility] [place] [facility] [place] [address] ProviderAlexander MD [facility] [place] [address] Social History Tobacco Use Types Packs/Day Years Used Date Smoking Tobacco: Never Assessed Comments Unknown Sex and Gender Information Value Date Recorded Sex Assigned at Not on file Legal Sex Female 6:06 PM CDT Gender Identity Not on file Sexual Orientation Not on file documented as of this encounter Miscellaneous Notes * Cerner Conversion Note - Historical ProviderMD - 01/24/2020 4:58 AM CDT Admission History, Adult Entered On: 01/24/2020 12:10 EDT Performed On: 01/24/2020 4:58 EDT by Alexys Love Rn Advance Directive Patient has Advance Directive *Q : Yes, Advance Directive not with the patient Advance Directive Type : Living will Copy Advance Directive Verified/on Chart : No Alexys Love Rn - 01/24/2020 12:09 EDT Anesthesia/Transfusion History Family History of Anesthesia Reaction : No prior transfusion(s) Transfusion History : Prior anesthesia without reaction Family History of Anesthesia Reaction : None Alexys Love Rn - 01/24/2020 12:09 EDT Functional Assessment Living Situation : Home Patient Lives With : Spouse Persons Assisting Patient at Home : Child/Children, Spouse Current Daily Living Assistance : None Sensory Deficits : None Mobility Assistance Prior to Admission : Independent RIVERA Hx Falls Immediate/Within 3 Months : No Current Home Treatments : Blood glucose monitoring Alexys Love Rn - 01/24/2020 12:09 EDT General Info Arrived From : Home Mode of Arrival on Unit : Ambulatory Legal Guardian : Unaccompanied Want Family/Rep/Phys Notified of Admit : No Emergency Contact #1 : noah Emergency Contact #1 Emergency Contact #1 Relationship : spouse Emergency Contact #2 : `- Emergency Contact #2 Phone Number : - Emergency Contact #2 Relationship : - Primary Language : [place] Communication Barrier : None Clean In Places Operator Needed : No Alexys Love Rn - 01/24/2020 12:09 EDT Fall Risk Scales ABCs Fall Injury Risk Identification : Surgery ABC Fall Injury Risk : Moderate to high injury risk RIVERA Hx Falls Immediate/Within 3 Months : No Rivera Secondary Diagnosis : Yes RIVERA Use of Ambulatory Aid : Bed rest/Nurse assist RIVERA IV Therapy or IV Access : Yes Rivera Gait/Transferring : Weak Rivera Mental Status : Oriented to own ability Rivera Fall Risk Score : 45 RIVERA Fall Scale Risk Level : 25-45 Medium Risk [place] Fall Interventions : Adequate lighting, Assistive devices within reach, Bed in low position, Call device within reach, Frequent orientation to surroundings, Non-slip footwear, Personal items within reach, Reinforced to call for assistance before getting out of bed, Room free of clutter/spills, Upper side-rails up, Wheels locked Barriers to Learning : None evident Learning Style Preferences Family : Printed materials, Verbal explanation Learning Style Preferences Patient : Printed materials, Verbal explanation Alexys Love Rn - 01/24/2020 12:09 EDT Health Histories Smoking Status : Former smoker, quit more than 30 days ago Smokeless Tobacco Status : Never Alexys Love Rn - 01/24/2020 12:09 EDT Social History (As Of: 01/24/2020 12:10:52 EDT) Tobacco: Former smoker, quit more than [...] 01/18/2020 15:25:15 EDT by DAVY DAY, RN) Height and Weight, Clinical Dosing Height Source : Stated Height Entry Format : [place] Height, Feet : 5 ft(Converted to: 152 cm, 60 Inch) Height, Inches : 5.5 Inch(Converted to: 0 ft 6 Inch, 13.97 cm) Clinical Height : 166.37 cm Weight Source : Standing scale Weight Entry Format : [place] Clinical Dosing Weight : 110.45 kg Weight, Pounds : 243 lb Body Surface Area (BSA) : 2.16 m2 Body Mass Index : 39.9 kg/m2 (HI) [place] Body Weight : 58 kg Alexys Love Rn - 01/24/2020 12:09 EDT Infectious Disease History Has the patient ever been tested for COVID-19? : Yes, Patient stated results Negative Where was the COVID-19 Testing completed? : [facility] COVID19 Screening : No Experiencing Infectious Disease Symptoms : No symptoms Physical contact outside [place] in the last 30 days : No Infectious Disease Symptoms Score : 0 Infectious Disease History : Chicken pox/Shingles, Mononucleosis Tuberculosis Symptoms : Night Sweats, Persistent Cough > 3 weeks Alexys Love Rn - 01/24/2020 12:09 EDT Influenza Vaccine Asmt, Adult Previous Vaccines from Immunization Schedule : No qualifying data available. Influenza Immunization, Current Season : No Inactivated Flu Vaccine Contraindications : No contraindications to inactivated influenza vaccine Transplant Workup/Recent Transplant : No Order for Influenza Vaccine : Declined Vaccination Alexys Love Rn - 01/24/2020 12:09 EDT Pneumococcal Vaccine Previous Vaccines from Immunization Schedule : No qualifying data available. Pneumonia Immunization Received : No Pneumococcal Risk Assessment < Age 65 : None Alexys Love Rn - 01/24/2020 12:09 EDT Nutrition History Eating Poorly Due to Decreased Appetite : No Unplanned Weight Loss in Past 3-6 Months : No Malnutrition Screening Tool Total(mal) : 0 Malnutrition Screening Tool Risk Level : Patient not at risk Alexys Love Rn - 01/24/2020 12:09 EDT [place] Suicide Severity Rating Scale (C-SSRS) CSSRS Past Month Wish to be : No CSSRS Past Month Suicidal Thoughts : No CSSRS Lifetime Suicide Behavior : No Suicide Severity Rating Score : 0 Suicide Severity Rating : No Additional Care Required at this time Alexys Love Rn - 01/24/2020 12:09 EDT Psychosocial History Do You Have a History of the Following? : Patient denies history Currently in Unsafe Situation : No Alexys Love Rn - 01/24/2020 12:09 EDT Sleep Apnea Risk Assmt Hx of [...] Sleep Apnea Risk Level Score : 2 Alexys Love Rn - 01/24/2020 12:09 EDT Valuables and Belongings Valuables and Belongings : Clothing, Jewelry Clothing : Common streetwear Clothing Disposition : Sent to locker Jewelry : Ring Jewelry Disposition : Sent to locker Alexys Love Rn - 01/24/2020 12:09 EDT documented in this encounter Plan of Treatment Not on file documented as of this encounter Visit Diagnoses Not on filedocumented in this encounter
--- OUTSIDE RECORDS SUMMARY | 2025-01-27 13:23 | XMS_ITS | Encounter Summary ---
Author Organization [employer] ([place], [place], [place], [place]) Address [address] [place] [address] Care Team Providers Care Accounting Officer Name Role Phone Unavailable Primary Care Provider Unavailabl e Encounter Details Date Type Department Care Team (Late st Contact Info) Description 01/24/2020 Transcribed Document [facility] [place] Former[facility] [address] ProviderAlexander MD [address] [place] [address] [id number] Social History Tobacco Use Types Packs/Day Years Used Date Smoking Tobacco: Never Assessed Comments Unknown Sex and Gender Information Value Date Recorded Sex Assigned at Not on file Legal Sex Female 6:06 PM CDT Gender Identity Not on file Sexual Orientation Not on file documented as of this encounter Miscellaneous Notes * Cerner Conversion Note - Alexander ProviderMD - 01/24/2020 7:52 AM CDT [facility] Main OR IntraOp Summary Primary Physician: ROSELYN AGUILERA MD-OBG Finalized Date/Time: 01/24/20 09:40:12 Pt. Name: PAMELA ALFONSO ALEX Ulloa/Sex: 1980 Female Med Rec #: [id number] Physician: ROSELYN AGUILERA MD-OBG Financial #: [id number] Pt. Type: O Room/Bed: Admit/Disch: 01/24/20 04:59:00 - Institution: [facility] IntraOp Case Attendance Entry 1 Entry 2 Entry 3 Case Attendee ROSELYN AGUILERA MD-OBG Holliday, Stewart R, RN Gavi Angel, Associate Producer Role Performed Surgeon/Proceduralist, Group Chief Operator, First Scrub, First First Time In 01/24/20 07:25:00 01/24/20 07:25:00 01/24/20 07:25:00 Time Out 01/24/20 09:36:00 01/24/20 09:36:00 01/24/20 09:36:00 Procedure Salpingectomy Salpingectomy Salpingectomy Laparoscopic, Vaginal Laparoscopic, Vaginal Laparoscopic, Vaginal Hysterectomy Hysterectomy Hysterectomy Laparoscopic Roboti, Laparoscopic Roboti, Laparoscopic Roboti, Cystoscopy Adult, Lysis Cystoscopy Adult, Lysis Cystoscopy Adult, Lysis Adhesions Adhesions Adhesions Other Attendee Superficial Wound Closed By: Last Modified By: Niko Rangel, RN Niko Rangel, Niok Lewis RN 01/24/20 09:39:48 01/24/20 09:39:48 01/24/20 09:39:48 Entry 4 Entry 5 Entry 6 Case Attendee Neymar Bates BRITTANY, IT PROGRAM MANAGER WAYNE, ILIA Rg PA-C Role Performed Scrub, Second IT PROGRAM MANAGER/Nurse Malt House Loader Physician nutrition assistant Time In 01/24/20 07:25:00 01/24/20 07:25:00 01/24/20 07:25:00 Time Out 01/24/20 09:36:00 01/24/20 09:36:00 01/24/20 09:36:00 Procedure Salpingectomy Salpingectomy Salpingectomy Laparoscopic, Vaginal Laparoscopic, Vaginal Laparoscopic, Vaginal Hysterectomy Hysterectomy Hysterectomy Laparoscopic Roboti, Laparoscopic Roboti, Laparoscopic Roboti, Cystoscopy Adult, Lysis Cystoscopy Adult, Lysis Cystoscopy Adult, Lysis Adhesions Adhesions Adhesions Other Attendee Superficial Wound Closed By: Last Modified By: Niko Rangel RN Holliday, Stewart R, RN Holliday, Stewart R, RN 01/24/20 09:39:48 01/24/20 09:39:48 01/24/20 09:39:48 Entry 7 Entry 8 Entry 9 Case Attendee OTHER, ATTENDEE OTHER, ATTENDEE #1 Susan Yarbrough, Rn Role Performed Observer Remote Inpatient Coder, Ancillary Group Chief Operator, First Time In 01/24/20 07:25:00 01/24/20 07:25:00 01/24/20 09:00:00 Time Out 01/24/20 09:36:00 01/24/20 09:36:00 01/24/20 09:13:00 Procedure Salpingectomy Salpingectomy Lysis Adhesions Laparoscopic, Vaginal Laparoscopic, Vaginal Hysterectomy Hysterectomy Laparoscopic Roboti, Laparoscopic Roboti, Cystoscopy Adult, Lysis Cystoscopy Adult, Lysis Adhesions Adhesions Other Attendee Lisa Senior break Superficial Wound Closed By: Last Modified By: Niko Rangel, RN Niko Rangel RN Niko Rangel RN 01/24/20 09:39:48 01/24/20 09:39:48 01/24/20 09:40:08 [facility] IntraOp Case Attendance Audit 01/24/20 09:40:08 Senior Sales Administrator: HOLLIDSR Modifier: [email or web address] <+> 9 Procedure 01/24/20 09:39:48 Senior Sales Administrator: HOLLIDSR Modifier: [email or web address] 1 <+> Time Out 1 <*> Procedure Salpingectomy Laparoscopic, Vaginal Hysterectomy Laparoscopic Roboti, Cystoscopy Adult, Lysis Adhesions 2 <+> Time Out 2 <*> Procedure Salpingectomy Laparoscopic, Vaginal Hysterectomy Laparoscopic Roboti, Cystoscopy Adult, Lysis Adhesions 3 <+> Time Out 3 <*> Procedure Salpingectomy Laparoscopic, Vaginal Hysterectomy Laparoscopic Roboti, Cystoscopy Adult, Lysis Adhesions 4 <+> Time Out 4 <*> Procedure Salpingectomy Laparoscopic, Vaginal Hysterectomy Laparoscopic Roboti, Cystoscopy Adult, Lysis Adhesions 5 <+> Time Out 5 <*> Procedure Salpingectomy Laparoscopic, Vaginal Hysterectomy Laparoscopic Roboti, Cystoscopy Adult, Lysis Adhesions 6 <+> Time Out 6 <*> Procedure Salpingectomy Laparoscopic, Vaginal Hysterectomy Laparoscopic Roboti, Cystoscopy Adult, Lysis Adhesions 7 <+> Time Out 7 <*> Procedure Salpingectomy Laparoscopic, Vaginal Hysterectomy Laparoscopic Roboti, Cystoscopy Adult, Lysis Adhesions 8 <+> Time Out 8 <*> Procedure Salpingectomy Laparoscopic, Vaginal Hysterectomy Laparoscopic Roboti, Cystoscopy Adult, Lysis Adhesions 01/24/20 09:17:09 Senior Sales Administrator: ANYIIDSR Modifier: [email or web address] 1 <*> Procedure Salpingectomy Laparoscopic, Vaginal Hysterectomy Laparoscopic Roboti, Cystoscopy Adult, Lysis Adhesions 2 <*> Procedure Salpingectomy Laparoscopic, Vaginal Hysterectomy Laparoscopic Roboti, Cystoscopy Adult, Lysis Adhesions 3 <*> Procedure Salpingectomy Laparoscopic, Vaginal Hysterectomy Laparoscopic Roboti, Cystoscopy Adult, Lysis Adhesions 4 <*> Procedure Salpingectomy Laparoscopic, Vaginal Hysterectomy Laparoscopic Roboti, Cystoscopy Adult, Lysis Adhesions 5 <*> Procedure Salpingectomy Laparoscopic, Vaginal Hysterectomy Laparoscopic Roboti, Cystoscopy Adult, Lysis Adhesions 6 <*> Procedure Salpingectomy Laparoscopic, Vaginal Hysterectomy Laparoscopic Roboti, Cystoscopy Adult, Lysis Adhesions 7 <*> Procedure Salpingectomy Laparoscopic, Vaginal Hysterectomy Laparoscopic Roboti, Cystoscopy Adult, Lysis Adhesions 8 <+> Time In 8 <*> Procedure Salpingectomy Laparoscopic, Vaginal Hysterectomy Laparoscopic Roboti, Cystoscopy Adult, Lysis Adhesions <+> 9 Case Attendee <+> 9 Role Performed <+> 9 Time In <+> 9 Time Out <+> 9 Other Attendee 01/24/20 08:34:17 Senior Sales Administrator: HOLLIDSR Modifier: HOLLIDSR <+> 8 Case Attendee <+> 8 Role Performed <+> 8 Procedure <+> 8 Other Attendee 01/24/20 08:14:33 Senior Sales Administrator: HOLLIDSR Modifier: [email or web address] 1 <*> Procedure Salpingectomy Laparoscopic, Vaginal Hysterectomy Laparoscopic Roboti 2 <*> Procedure Salpingectomy Laparoscopic, Vaginal Hysterectomy Laparoscopic Roboti 3 <*> Procedure Salpingectomy Laparoscopic, Vaginal Hysterectomy Laparoscopic Roboti 4 <*> Procedure Salpingectomy Laparoscopic, Vaginal Hysterectomy Laparoscopic Roboti 5 <*> Procedure Salpingectomy Laparoscopic, Vaginal Hysterectomy Laparoscopic Roboti 6 <*> Procedure Salpingectomy Laparoscopic, Vaginal Hysterectomy Laparoscopic Roboti 7 <*> Procedure Salpingectomy Laparoscopic, Vaginal Hysterectomy Laparoscopic Roboti 01/24/20 08:07:30 Senior Sales Administrator: HOLLIDSR Modifier: [email or web address] 1 <*> Procedure Salpingectomy Laparoscopic, Vaginal Hysterectomy Laparoscopic Roboti 2 <*> Procedure Salpingectomy Laparoscopic, Vaginal Hysterectomy Laparoscopic Roboti 3 <*> Procedure Salpingectomy Laparoscopic, Vaginal Hysterectomy Laparoscopic Roboti 4 <*> Procedure Salpingectomy Laparoscopic, Vaginal Hysterectomy Laparoscopic Roboti 5 <*> Procedure Salpingectomy Laparoscopic, Vaginal Hysterectomy Laparoscopic Roboti 6 <*> Procedure Salpingectomy Laparoscopic, Vaginal Hysterectomy Laparoscopic Roboti 7 <+> Time In 7 <*> Procedure Salpingectomy Laparoscopic, Vaginal Hysterectomy Laparoscopic Roboti 01/24/20 07:46:44 Senior Sales Administrator: HOLLIDSR Modifier: [email or web address] 1 <+> Time In 1 <*> Procedure Salpingectomy Laparoscopic, Vaginal Hysterectomy Laparoscopic Roboti 2 <+> Time In 2 <*> Procedure Salpingectomy Laparoscopic, Vaginal Hysterectomy Laparoscopic Roboti 3 <+> Time In 3 <*> Procedure Salpingectomy Laparoscopic, Vaginal Hysterectomy Laparoscopic Roboti 4 <+> Time In 4 <*> Procedure Salpingectomy Laparoscopic, Vaginal Hysterectomy Laparoscopic Roboti 5 <+> Time In 5 <*> Procedure Salpingectomy Laparoscopic, Vaginal Hysterectomy Laparoscopic Roboti 6 <+> Time In 6 <*> Procedure Salpingectomy Laparoscopic, Vaginal Hysterectomy Laparoscopic Roboti <+> 7 Case Attendee <+> 7 Role Performed <+> 7 Procedure <+> 7 Other Attendee [facility] IntraOp Case Times Entry 1 Patient In Room Time 01/24/20 07:25:00 Out Room Time 01/24/20 09:36:00 Anesthesia Start Time 01/24/20 07:25:00 Stop Time 01/24/20 09:36:00 Anesthesia Ready 01/24/20 07:25:00 Surgery / Procedure Times Start Time 01/24/20 07:52:00 Stop Time 01/24/20 09:20:00 Last Modified By: Niko Rangel RN 01/24/20 09:39:47 [facility] IntraOp Case Times Audit 01/24/20 09:39:47 Senior Sales Administrator: MARY ANNER Modifier: [email or web address] <+> 1 Out Room Time <+> 1 Stop Time 01/24/20 09:22:30 Senior Sales Administrator: ANYIIDSR Modifier: [email or web address] <+> 1 Stop Time 01/24/20 07:52:05 Senior Sales Administrator: ANYIIDSR Modifier: HOLLIDSR <+> 1 Start Time [facility] IntraOp Cautery Entry 1 ESU Identification Cautery Type Monopolar ESU ID Number erbe ID Type Hospital Number Cautery Settings Cut Setting 0 Coag Setting 30 ESU Grounding Pad Ground Pad Type Adult Grounding Pad Niko Rangel RN Applied By Grounding Pad Site Intact Skin Condition Before Cautery Grounding Pad Site Intact Skin Condition After Cautery Last Modified By: Niko Rangel RN 01/24/20 07:18:23 [facility] IntraOp Cautery Audit 01/24/20 07:18:23 Senior Sales Administrator: DREA Modifier: [email or web address] <+> 1 Grounding Pad Site Skin Condition After Cautery [facility] IntraOp Communication Entry 1 Communication To Family/Significant other Comment procedure update Communication By Niko Rangel, RN Last Modified By: Niko Rangel RN 01/24/20 08:07:45 [facility] IntraOp Counts Verification Entry 1 Procedure Salpingectomy Laparoscopic, Vaginal Hysterectomy Laparoscopic Roboti, Cystoscopy Adult, Lysis Adhesions Count Info Count Type Sponge, Sharps, Instrument, Miscellaneous Counts Verification Baseline/pre-procedure Sequence Counts Performed By Count Performed By Gavi Angel, (Scrub) Associate Producer Count Performed By Niko Rangel RN (RN) Last Modified By: Niko Rangel RN 01/24/20 08:14:36 [facility] IntraOp Counts Verification Audit 01/24/20 08:14:36 Senior Sales Administrator: HOLLIDSR Modifier: HOLLIDSR 1 <*> Procedure Salpingectomy Laparoscopic, Vaginal Hysterectomy Laparoscopic Roboti [facility] IntraOp Counts Final Entry 1 Procedure Salpingectomy Laparoscopic, Vaginal Hysterectomy Laparoscopic Roboti, Cystoscopy Adult, Lysis Adhesions Final Count Info Count Type Sponge, Sharps, Miscellaneous Counts Verification Skin Closure/end of Sequence procedure Count Results Correct, surgeon notified Counts Performed By Count Performed By Gavi Angel, (Scrub) Associate Producer Count Performed By Niko Rangel RN (RN) Last Modified By: Niko Rangel RN 01/24/20 09:35:03 [facility] IntraOp Counts Final Audit 01/24/20 09:35:03 Senior Sales Administrator: HOLLIDSR Modifier: HOLLIDSR 1 <*> Procedure Salpingectomy Laparoscopic, Vaginal Hysterectomy Laparoscopic Roboti, Cystoscopy Adult, Lysis Adhesions 1 <+> Counts Verification Sequence [facility] IntraOp Cultures and Spec Summary Entry 1 Cultrures and Specimens Specimen Ordered: Yes Test(s) Routine/Path-Lab Requested/Final Disposition Last Modified By: Niko Rangel RN 01/24/20 07:18:06 [facility] IntraOp Departure from OR Entry 1 Integumentary Assessment Transfer/Handoff Transfer to PACU Phase I Post-op Transport Bed (including Via specialty) Patient Transport ANIKA PHELAN CRNA, Accompanied by Niko Rangel, RN Last Modified By: Niko Rangel RN 01/24/20 07:18:04 [facility] IntraOp Dressing and Packing Entry 1 Type Dressing Location ABDOMEN Wound Dressing Item 2x2's, Skin adhesive, Steristrip Last Modified By: Niko Rangel RN 01/24/20 07:18:03 [facility] IntraOp Fire Risk Assessment Entry 1 Fire Info Surgical Site or 0- No Incision Above the Xyphoid Open O2 Source 0- No (Mask or Cannula) Available Ignition 1- Yes (ESU, Laser, Light Source) Fire Risk 1 Assessment Score Fire Score Fire Risk Yes Assessment 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 Verified By Fire Risk 01/24/20 07:16:00 Assessment Verified Date/Time Fire Risk Standard Fire Yes Safety Precautions Followed Last Modified By: Niko Rangel RN 01/24/20 07:16:49 [facility] IntraOp General Case Bread Dumper 1 Case Information OR OR 04 SJE Case Level 1 Room Verified Yes Wound Class II - Clean-Contaminated Specialty SN Gynecology Anesthesia Type General ASA Class 3 Diagnosis Preop Diagnosis pelvic pain, AUB Postop Diagnosis refer to MD notes Last Modified By: Niko Rangel RN 01/24/20 08:08:42 [facility] IntraOp General Case Data Audit 01/24/20 08:08:42 Senior Sales Administrator: DREA Modifier: DREA <+> 1 ASA Class <+> 1 Anesthesia Type <+> 1 Preop Diagnosis <+> 1 Postop Diagnosis <+> 1 Room Verified [facility] IntraOp Intraoperative Assessment Entry 1 Valid History / Yes Physical in Chart Preoperative Yes Checklist Reviewed/Evaluated Allergies Reviewed Yes Patient is Latex No Sensitive Isolation Not applicable Precautions Noted Skin Assessment Yes Verified Present Upon IVs Arrival to OR Last Modified By: Niko Rangel RN 01/24/20 07:16:51 [facility] IntraOp Intraoperative Equipment Entry 1 Equipment Equipment Robot Intraop Monitoring Antiembolic Devices Scopes Photo/Video Documentation Last Modified By: Niko Rangel RN 01/24/20 07:18:00 [facility] IntraOp Medication Admin Entry 1 Medication/Irrigant Marcaine 0.5% 30ml vial - [id number] Dose Administered By ROSELYN AGUILERA MD-OBG Procedure Irrigation Last Modified By: Niko Rangel RN 01/24/20 08:07:16 [facility] IntraOp Patient Positioning Entry 1 Procedure Salpingectomy Laparoscopic, Cystoscopy Adult, Lysis Adhesions Body Position Lithotomy Left Arm Position Tucked and padded at side Right Arm Position Tucked and padded at side Left Leg Position Secured in Leg Kramer Right Leg Position Secured in Leg Kramer Feet Uncrossed Yes Pressure Points Yes Checked Positioning Devices Stirrups/Leg Kramer, Boot Positioned By ANIKA PHELAN CRNA, Niko Rangel, RN, ROSELYN AGUILERA MD-OBG Position Verified Positioning Yes Verified by Anesthesia Positioning Yes Verified by Surgeon Last Modified By: Niko Rangel RN 01/24/20 08:14:36 [facility] IntraOp Patient Positioning Audit 01/24/20 08:14:36 Senior Sales Administrator: MARY ANNER Modifier: [email or web address] 1 <*> Procedure Salpingectomy Laparoscopic [facility] IntraOp Sign In Entry 1 Patient, Site, Yes Procedure Identified Surgical Consent Yes Confirmed Relevant Surgical Yes Documents Available Surgical Site N/A Marked by person performing procedure Anesthesia Machine Yes Check Completed Medication Checks Yes Completed Airway Difficult No Airway/Aspiration Risk Difficult Yes Airway/Aspiration Intervention Equipment Available Blood Loss Risk No Blood Loss No Intervention Equipment Prepared and Ready Hypothermia Risk Yes Warming Measures Yes Taken Last Modified By: Niko Rangel RN 01/24/20 07:16:42 [facility] Intra Op Sign Out Entry 1 RN Confirmation Surgical Yes Procedure(s) Identified Instrument, Sponge Yes and Sharps Counts Correct/Documented Equipment Problems N/A Documented Specimen Labeled Yes Correctly Urinary Catheter Yes Documented in IView [place] Patient Yes Recovery Concerns Reviewed with Anesthesia Provider, Surgeon and RN [place] Patient Yes Management Concerns Reviewed with Anesthesia Provider, Surgeon and RN Safety Checklist Yes Elements Complete? RN Sign Out Niko Rangel, RN Signature RN Sign Out 01/24/20 09:39:00 Signature Date/Time Plan of Care Outcome - Fire Risk OUTCOME STATEMENT: Goal met Patient is free from injury related to surgical fire Plan of Care Outcome - Pt Positioning OUTCOME STATEMENT: Goal met Absence of signs and symptoms of positioning injury. Plan of Care Outcome - Skin Prep OUTCOME STATEMENT: Goal met Intraoperative care is consistent with measures to prevent infection Plan of Care Outcome - Xray/Images OUTCOME STATEMENT: Goal met Absence of observable signs or symptoms of radiation injury Plan of Care Outcome - Counts OUTCOME STATEMENT: Goal met Absence of signs and symptoms of injury related to extraneous objects Last Modified By: Niko Rangel RN 01/24/20 09:39:54 [facility] Intra Op Sign Out Audit 01/24/20 09:39:54 Senior Sales Administrator: DREA Modifier: MARY ANNER <+> 1 RN Sign Out Signature Date/Time <+> 1 Urinary Catheter Documented in IView [facility] IntraOp Skin Prep Entry 1 Procedure Salpingectomy Laparoscopic, Cystoscopy Adult, Lysis Adhesions Prescribed Yes Pre-Surgical Prep Completed Prep Area ABDOMEN, VAGINA Intraop Prep Prep Agents Chloraprep, Betadine solution Prep by Niko Rangel, RN Hair Removal Last Modified By: Niko Rangel RN 01/24/20 08:14:36 [facility] IntraOp Skin Prep Audit 01/24/20 08:14:36 Senior Sales Administrator: ANYINELIDAR Modifier: [email or web address] 1 <*> Procedure Salpingectomy Laparoscopic [facility] IntraOp Surgical Procedures Entry 1 Entry 2 Entry 3 Procedure Salpingectomy Vaginal Hysterectomy Cystoscopy Adult Laparoscopic Laparoscopic Robotic Modifiers Additional ROBOTIC ASSISTED TOTAL Procedure LAPAROSCOPIC Description HYSTERECTOMY WITH BILATERAL SALPINGECTOMIES WITH POSS EOI FOI DAVID POSS APPENDECTOMY Primary Procedure No Yes No Primary Surgeon ROSELYN AGUILERA MD-OBG BUTLER, LARRY S, MD-OBG BUTLER, LARRY S, MD-OBG Start 01/24/20 07:52:00 01/24/20 07:52:00 01/24/20 07:52:00 Stop 01/24/20 09:20:00 01/24/20 09:20:00 01/24/20 09:20:00 Physician States Cecum Reached Anesthesia Type General General General Specialty SN Gynecology SN Gynecology SN Gynecology Wound Class II - Clean-Contaminated II - Clean-Contaminated I - Clean Last Modified By: Niko Rangel RN Holliday, Stewart R RN Niko Rangel RN 01/24/20 09:22:31 01/24/20 09:22:31 01/24/20 09:22:31 Entry 4 Procedure Lysis Adhesions Modifiers Additional Procedure Description Primary Procedure No Primary Surgeon ROSELYN AGUILERA MD-OBG Start 01/24/20 07:52:00 Stop 01/24/20 09:20:00 Physician States Cecum Reached Anesthesia Type General Specialty SN Gynecology Wound Class I - Clean Last Modified By: Niko Rangel RN 01/24/20 09:22:31 [facility] IntraOp Surgical Procedures Audit 01/24/20 09:22:31 Senior Sales Administrator: MARY ANNER Modifier: ANYIIDSR <+> 1 Stop <+> 2 Stop <+> 3 Stop <+> 4 Stop 01/24/20 08:49:15 Senior Sales Administrator: MARY ANNER Modifier: ANYIIDSR <+> 3 Start <+> 4 Start [facility] IntraOp Time Out Entry 1 Procedure to be Salpingectomy Performed Laparoscopic, Vaginal Hysterectomy Laparoscopic Roboti, Cystoscopy Adult, Lysis Adhesions Time Out Time Out Pause Time 01/24/20 07:51:00 All activity Yes suspended (unless life threatening emergency) Team Verbally Correct patient Confirms Information identity, Correct side and site are marked, Consent form is present and accurate, Agreement on the procedure to be done, Correct patient position Antibiotic Yes Prophylaxis Administered Or In Progress Within the Last 60 Minutes Beta Garcia N/A Administered Venous Yes Thromboembolism Prophylaxis Required Anticipated Critical Events Surgeon None expected Anesthesia Provider None expected Nursing Assures Sterility of instruments Essential Imaging Yes Labeled and Displayed Last Modified By: Niko Rangel RN 01/24/20 08:14:37 [facility] IntraOp Time Out Audit 01/24/20 08:14:37 Senior Sales Administrator: DREA Modifier: [email or web address] 1 <*> Procedure to be Performed Salpingectomy Laparoscopic, Vaginal Hysterectomy Laparoscopic Roboti 01/24/20 08:08:56 Senior Sales Administrator: DREA Modifier: ANYIIDSR 1 <+> Beta Garcia Administered 1 <+> Nursing Assures 1 <+> Essential Imaging Labeled and Displayed 1 <*> Procedure to be Performed Salpingectomy Laparoscopic, Vaginal Hysterectomy Laparoscopic Roboti 01/24/20 08:06:46 Senior Sales Administrator: DREA Modifier: [email or web address] 1 <+> Venous Thromboembolism Prophylaxis Required 1 <+> Antibiotic Prophylaxis Administered Or In Progress Within the Last 60 Minutes 1 <+> Surgeon 1 <+> Anesthesia Provider 1 <*> Procedure to be Performed Salpingectomy Laparoscopic, Vaginal Hysterectomy Laparoscopic Roboti Case Comments <None> Finalized By: Niko Rangel, RN Document Signatures Signed By: Niko Rangel RN 01/24/20 09:40 documented in this encounter Plan of Treatment Not on file documented as of this encounter Visit Diagnoses Not on filedocumented in this encounter
--- OUTSIDE RECORDS SUMMARY | 2025-01-27 13:23 | XMS_ITS | Encounter Summary ---
Author Organization [employer] ([place], [place], [place], [place]) Address [address] [place] [address] Care Team Providers Care Instructional Paraprofessional Name Role Phone Unavailable Primary Care Provider Unavailabl e Encounter Details Date Type Department Care Team (Late st Contact Info) Description 01/24/2020 Transcribed Document [facility] [place] Family Medicine [facility] [place] [address] ProviderAlexander MD [address] [place], [place] [id number] Social History Tobacco Use Types Packs/Day Years Used Date Smoking Tobacco: Never Assessed Comments Unknown Sex and Gender Information Value Date Recorded Sex Assigned at Not on file Legal Sex Female 6:06 PM CDT Gender Identity Not on file Sexual Orientation Not on file documented as of this encounter Miscellaneous Notes * Cerner Conversion Note - Historical ProviderMD - 01/24/2020 11:38 AM CDT Education-(VTE) / (DVT) Entered On: 01/24/2020 12:11 EDT Performed On: 01/24/2020 11:38 EDT by Aelxys Love, Rn Teaching/Learning Assessment Barriers To Learning : None evident Learning Style Preferences Patient : Printed materials, Verbal explanation Learning Style Preferences Family : Printed materials, Verbal explanation Alexys Love Rn - 01/24/2020 12:11 EDT documented in this encounter Plan of Treatment Not on file documented as of this encounter Visit Diagnoses Not on filedocumented in this encounter
--- OUTSIDE RECORDS SUMMARY | 2025-01-27 13:23 | XMS_ITS | Encounter Summary ---
Author Organization [employer] ([place], [place], [place], [place]) Address [address] [place] [address] Care Team Providers Care Director Of Critical Care Name Role Phone Unavailable Primary Care Provider Unavailabl e Encounter Details Date Type Department Care Team (Late st Contact Info) Description 01/24/2020 Transcribed Document [facility] Family Medicine Formerly [facility] [place] [address] ProviderAlexander MD [address] [place] [address] Social History Tobacco Use Types Packs/Day Years Used Date Smoking Tobacco: Never Assessed Comments Unknown Sex and Gender Information Value Date Recorded Sex Assigned at Not on file Legal Sex Female 6:06 PM CDT Gender Identity Not on file Sexual Orientation Not on file documented as of this encounter Miscellaneous Notes * Cerner Conversion Note - Historical ProviderMD - 01/24/2020 11:39 AM CDT Internal Medicine Nurse Details Entered On: 01/24/2020 12:12 EDT Performed On: 01/24/2020 11:39 EDT by Alexys Love, Rn Order Details Transport Mode Order Detail : Wheelchair Isolation Precautions Order Detail : Standard Precautions Order Detail : 0 IV Order Detail : 1 Oxygen Order Detail : 0 Nurse Collect Order Detail : 0 Lift/Transfer : Minimal Central Line Order Detail : No Room Service : Appropriate Arterial Line : No Alexys Love, Rn - 01/24/2020 12:11 EDT documented in this encounter Plan of Treatment Not on file documented as of this encounter Visit Diagnoses Not on filedocumented in this encounter
--- OUTSIDE RECORDS SUMMARY | 2025-01-27 13:23 | XMS_ITS | Encounter Summary ---
Author Organization Healthcare Address [address] [place] [address] Care Team Providers Care Slat Basket Top Maker Name Role Phone Bobby Goyal MD Primary Care Provider [phone] Encounter Details Date Type Department Care Team (Late st Contact Info) Description 10/26/2020 Orders Only External Location [address] [place] [id number] Provider, External Social History Tobacco Use Types [...] Procedure Name Priority Date/Time Associated Diagnosis Comments FL OUTSIDE IMAGES 10/26/2020 1:01 PM EDT documented in this encounter Results * FL OUTSIDE IMAGES (10/26/2020 1:01 PM EDT) Anatomical Region Laterality Modality Radiographic Vero ging 10/26/2020 1:01 PM EDT us External Provider IMG FLUOROSCOPY PROCEDURES Fin al Result documented in this encounter Visit Diagnoses Not on filedocumented in this encounter Care Teams Slat Basket Top Maker Relationship Specialty Start Date End Date Bobby Goyal MD [address] [place] [address] [place] [address] PCP - General 01/11/21 documented as of this encounter
[2025-01-27 13:57] VITALS: BP 137/88; PULSE 74; RESP 14; O2SAT 96; BMI 36.6
== END 2025-01-27 23:59 | disposition home or self-care (01) ==
LOC: SC.PAIN 13:17
PROVIDERS: PCP Internal Medicine; Visit Provider Nurse Practitioner Family
DX: M46.1 Sacroiliitis, not elsewhere classified (principal)
CPT/HCPCS: 99212; G0463

== ENCOUNTER 2025-02-01 09:10 | Day surgery (SDC) | payer BC, SELFPAY ==
[2025-02-01 09:18] VITALS: BP 131/92; PULSE 85; RESP 18; O2SAT 100; BMI 36.6
[2025-02-01] MEDS: DEXAMETHASONE 10MG/ML 1ML VIAL 10 MG (09:42)
[2025-02-01] MEDS: BUPIVACAINE 0.25% 10ML INJ 25 MG IJ (09:42)
[2025-02-01] MEDS: LIDOCAINE 1% 5ML PF VIAL 5 ML (09:42)
[2025-02-01 09:43] VITALS: BP 132/88; PULSE 71; RESP 18; O2SAT 99
[2025-02-01 09:48] VITALS: BP 132/88; PULSE 71; RESP 18; O2SAT 99
--- NOTE | 2025-02-01 09:51 | P.PCN_ITS ---
Procedure Date: 02/01/25 Time: 09:45 Anesthesiologist:: Zohaib Mera CRNA Complications:: None Pre-procedure Diagnosis:: Bilateral sacroiliitis Post-procedure Diagnosis:: Same Indications for Procedure:: Patient is a very pleasant 44-year-old female comes our clinic today for bilateral sacroiliac joint injection cortisone local anesthetic. Patient describes low lumbar back pain off the midline bilaterally. Bilateral posterior hip pain. Difficulty transitioning from sitting to standing. Difficulty with ambulation due to bilateral posterior hip pain. She rates her pain 7/10. Procedure Details:: Procedure: Bilateral sacroiliac joint injections under fluoroscopy Informed consent was obtained and the risks and benefits of the procedure were explained to the patient.~ The patient was taken to the procedure room and noninvasive monitors were placed including a noninvasive blood pressure cuff and pulse oximeter.~ The patient was placed prone on the procedure table. Both hips were cleansed using Betadine as a cleansing solution. C-arm fluoroscopy was used to view the right sacroiliac joint.~ The skin and subcutaneous tissues were anesthetized using lidocaine 1.5% and a 25-gauge needle.~ After this, a 22-gauge spinal needle was inserted under fluoroscopic guidance into the inferior aspect of the right sacroiliac joint.~ Omnipaque dye was injected and good spread was seen throughout the joint.~ After this, approximately 5 mL of bupivacaine, 0.25% and dexamethasone 5 mg was incrementally injected into the right sacroiliac joint. We then moved to the left sacroiliac joint.~ The skin and subcutaneous tissues were anesthetized using lidocaine 1.5% and a 25-gauge needle.~ After this, a 22- gauge spinal needle was inserted under fluoroscopic guidance into the inferior aspect of the left sacroiliac joint.~ Omnipaque dye was injected and good spread was seen throughout the joint. After this, approximately 5 mL of bupivacaine, 0.25% and dexamethasone 5 mg was incrementally injected into the left sacroiliac joint.~ The patient tolerated the procedure well with no complications. The patient was observed in the Pain Clinic and then was discharged home neurologically intact. Plan and Disposition:: Patient was discharged without incident
[2025-02-01 09:52] VITALS: BP 133/86; PULSE 72; RESP 18; O2SAT 100
== END 2025-02-01 09:52 | disposition home or self-care (01) ==
PROVIDERS: PCP Internal Medicine; Visit Provider Nurse Anesthetist, Certified Registered
DX: M46.1 Sacroiliitis, not elsewhere classified (principal); E11.9 Type 2 diabetes mellitus without complications; Z79.85 Long-term (current) use of injectable non-insulin antidiabetic drugs; Z79.899 Other long term (current) drug therapy
CPT/HCPCS: 27096; J0665; J1100; J2003

== ENCOUNTER 2025-02-21 09:08 | Outpatient (POV) | payer BC, SELFPAY ==
--- NOTE | 2025-02-21 09:11 | EXP.PAIN.SOA ---
[facility] Disclaimer: The information contained in this section may have been updated after the patient was seen, as this information can be updated by other users. Medical History Diabetes Family History Other Unknown family medical history Social History Smoking Status: Never smoker alcohol intake: current current occupational status: other Travel in the last 8 weeks?: None PM Subjective & Objective Subjective Subjective:: Patient is a pleasant 44-year-old female who presents today for follow-up of bilateral SI injections on 02/01/2025. Today she rates only about 20% improvement. Patient states this 1 did not do as well as her previous one did in October that provided 100% relief and lasted 2-1/2 months. Patient denies any new falls or injuries. Patient has been prescribed compounded cream in the past however did not notice significant improvement. Her Alexys has been reviewed and is appropriate. Review of Systems: General: No recent weight changes, no fever, no sleep disturbances Respiratory: No cough, no shortness of air, no recurring pulmonary infections Cardiovascular/peripheral vascular: No chest pain, no palpitations, no edema, no shortness of breath Gastrointestinal: No new onset incontinence, normal bowel movements reported Genitourinary: No new onset incontinence Musculoskeletal: Low back pain Psychiatric: [Normal mood/affect] Neurological: [Denies weakness in extremities], [denies balance issues] Pain at rest (0-10 scale): 5 Objective Objective:: Physical Exam: General: Alert and oriented x3, no acute distress, pleasant and cooperative Lungs: Respirations even and unlabored, symmetrical chest expansion Eyes: PERRL Musculoskeletal: Flexion and extension of lumbar [spine] somewhat guarded secondary to pain, [antalgic gait noted] point tenderness along left SI joint Neurological: Speech clear, no gross sensory deficit Has patient had previous pain injection?: Yes Percent improvement in pain since last injection: 20% Conservative treatment options previously tried: Home exercise plan Length of treatment: Longer than 12 weeks Meds Home Medications and Allergies Home Medications ?Medication ?Instructions ?Recorded ?Confirmed ?Type fluticasone propionate 50 1 spray intranasal DIRECTED 09/14/24 02/21/25 History mcg/actuation nasal spray,suspension levocetirizine 5 mg tablet 5 mg PO DIRECTED 09/14/24 02/21/25 History semaglutide 2 mg/dose (8 mg/3 mL) 2 mg SQ DIRECTED 09/14/24 02/21/25 History subcutaneous pen injector (Ozempic) methocarbamol 500 mg tablet 1,000 mg (2 x 500 mg) PO TID PRN 02/02/25 02/21/25 Rx muscle pain #180 tabs lidocaine 5 % topical patch 1 patch topical DAILY #30 ea 02/21/25 Rx New Prescriptions to Start Prescriptions: lidocaine Alice Fulton Allergies Allergy/AdvReac Type Severity Reaction Status Date / Time No Known Allergies Allergy Verified 10/26/24 09:05 Assessment and Plan *Assessment and plan (1) Bilateral sacroiliitis: Status: Acute Category: Medical Code(s): M46.1 - Sacroiliitis, not elsewhere classified Plan I did discuss with the patient that this may have just been a fluke injection as she did get significant relief with the SI injections in the past. Patient is still having more so pain all along the left SI region. I did discuss with her in future it may be beneficial to repeat this. I will send in lidocaine 5% patches and follow-up with the patient in 6 weeks for reevaluation of symptoms and plan of care. Patient has been instructed to contact the clinic with any concerns before the next appointment. Dr. Arora has reviewed this note and agrees with this plan of care. This note was dictated using voice recognition software and make contain errors or omissions. All injections are used with Lidocaine, Bupivacaine and dexamethasone. Occasionally urine drug screen is needed to verify patient's compliance with our office pain contract. This is ordered based off specific treatments related to chronic pain with the potential to abuse certain medications.
[2025-02-21 09:16] VITALS: BP 126/76; PULSE 84; RESP 14; O2SAT 97; BMI 36.6
--- OUTSIDE RECORDS SUMMARY | 2025-02-21 09:17 | XMS_ITS | Encounter Summary ---
Author Organization [employer] ([place], [place], [place], [place]) Address [address] [place] [address] Care Team Providers Care Human Intelligence Name Role Phone Unavailable Primary Care Provider Unavailabl e Encounter Details Date Type Department Care Team (Late st Contact Info) Description 01/25/2020 Transcribed Document [facility] [place] [facility] [place] [address] ProviderAlexander MD [address] [place] [id number] Social History Tobacco Use Types Packs/Day Years [...] cannot use soap and water, use hand school examiner. ? Change your bandage as told by [...] ask your doctor. General instructions ??? Take zxid-wzx-jmfuykn and prescription medicines only as told by your doctor. ??? Do not take aspirin or ibuprofen. These medicines can cause bleeding. ??? To prevent or treat constipation while you are taking prescription pain medicine, your doctor may suggest that you: ? Drink enough fluid to keep your urine clear or pale yellow. ? Take ocbc-vof-xrgpace or prescription medicines. ? Eat foods that [...] 04/15/2009 Document Revised: 06/25/2017 Document Reviewed: 06/25/2017 [employer] Interactive Patient Education ? 2020 [employer] Abdominal Hysterectomy, Care After This sheet [...] and water are not available, use hand school examiner. ? Change your dressing as told by [...] health care provider. General instructions ??? Take fjli-hkg-xvqhmts and prescription medicines only as told by your health care provider. ??? Do not take aspirin or ibuprofen. These medicines can cause bleeding. ??? To prevent or treat constipation while you are taking prescription pain medicine, your health care provider may recommend that you: ? Drink enough fluid to keep your urine clear or pale yellow. ? Take mfpl-crc-bcofana or prescription medicines. ? Eat foods that [...] 01/24/2006 Document Revised: 06/25/2017 Document Reviewed: 06/25/2017 [employer] Interactive Patient Education ? 2020 [employer]. documented in this encounter Plan of Treatment Not on file documented as of this encounter Visit Diagnoses Not on filedocumented in this encounter
--- OUTSIDE RECORDS SUMMARY | 2025-02-21 09:17 | XMS_ITS | Encounter Summary ---
Author Organization [employer] ([place], [place], [place], [place]) Address [address] [place] [address] Care Team Providers Care Patcher Name Role Phone Unavailable Primary Care Provider Unavailabl e Encounter Details Date Type Department Care Team (Late st Contact Info) Description 01/25/2020 Transcribed Document [facility] [place] [facility] [place] [address] ProviderAlexander MD [address] [place] [address] Social History Tobacco Use Types Packs/Day Years [...]
--- OUTSIDE RECORDS SUMMARY | 2025-02-21 09:17 | XMS_ITS | Encounter Summary ---
Author Organization [employer] ([place], [place], [place], [place]) Address [address] [place] [address] Care Team Providers Care Body Cleaner Name Role Phone Unavailable Primary Care Provider Unavailabl e Encounter Details Date Type Department Care Team (Late st Contact Info) Description 01/25/2020 Transcribed Document [facility] [place] [address] ProviderAlexander MD [address] [place] [id number] Social History Tobacco Use Types Packs/Day Years [...] 01/25/2020 15:05 EDT Electronically signed by Hector [facility] Conversion Dental Laboratory Technician Apprentice Cerner at 11/07/2022 5:49 PM CDT documented in this encounter Plan of Treatment Not on file documented as of this encounter Visit Diagnoses Not on filedocumented in this encounter
--- OUTSIDE RECORDS SUMMARY | 2025-02-21 09:17 | XMS_ITS | Encounter Summary ---
Author Organization [employer] ([place], [place], [place], [place]) Address [address] [place] [address] Care Team Providers Care Doors Prefitter Name Role Phone Unavailable Primary Care Provider Unavailabl e Encounter Details Date Type Department Care Team (Late st Contact Info) Description 01/25/2020 Transcribed Document [facility] [place] [facility] [place] [facility] [place] [address] ProviderAlexander MD [address] [place] [address] Social History Tobacco Use Types Packs/Day Years [...]
--- OUTSIDE RECORDS SUMMARY | 2025-02-21 09:17 | XMS_ITS | Encounter Summary ---
Author Organization [employer] ([place], [place], [place], [place]) Address [address] [place] [address] Care Team Providers Care Artificial Glass Eye Maker Name Role Phone Unavailable Primary Care Provider Unavailabl e Encounter Details Date Type Department Care Team (Late st Contact Info) Description 01/25/2020 Transcribed Document [facility] [place] [address] ProviderAlexander MD [address] [place] [address] Social History Tobacco Use Types Packs/Day Years [...] fever, vomiting, or heavy vaginal bleeding, etc. /[id number] MD MARIO PhippsB/EDELMIRA / LSB / MODL /[id number] documented in this encounter Plan of Treatment Not on file documented as of this encounter Visit Diagnoses Not on filedocumented in this encounter
--- OUTSIDE RECORDS SUMMARY | 2025-02-21 09:17 | XMS_ITS | Encounter Summary ---
Author Organization [employer] ([place], [place], [place], [place]) Address [address] [place] [address] Care Team Providers Care Battery Recharger Name Role Phone Unavailable Primary Care Provider Unavailabl e Encounter Details Date Type Department Care Team (Late st Contact Info) Description 01/18/2020 Transcribed Document [facility] [place] [facility] [place] [address] ProviderAlexander MD [address] [place] [id number] Social History Tobacco Use Types Packs/Day Years [...] exam. ASSESSMENT: As above. PLAN: As above. /[id number] MD AFSANEH Phipps/EDELMIRA / LSClara / MODL Electronically signed by Hector, [facility] Conversion Blanching Machine Operator Cerner at 11/07/2022 5:53 PM CDT documented in this encounter Plan of Treatment Not on file documented as of this encounter Visit Diagnoses Not on filedocumented in this encounter
--- OUTSIDE RECORDS SUMMARY | 2025-02-21 09:17 | XMS_ITS | Encounter Summary ---
Author Organization [employer] ([place], [place], [place], [place]) Address [address] [place] [address] Care Team Providers Care Mimeographer Name Role Phone Unavailable Primary Care Provider Unavailabl e Encounter Details Date Type Department Care Team (Late st Contact Info) Description 01/25/2020 Transcribed Document [facility] [place] [facility] [place] [address] ProviderAlexander MD [address] [place] [address] Social History Tobacco Use Types Packs/Day Years [...] home meds. roselyn valentine Electronically signed by [facility], [facility] Conversion Hall Clerk Ceroneal at 11/07/2022 5:53 PM CDT documented in this encounter Plan of Treatment Not on file documented as of this encounter Visit Diagnoses Not on filedocumented in this encounter
--- OUTSIDE RECORDS SUMMARY | 2025-02-21 09:17 | XMS_ITS | Encounter Summary ---
Author Organization [employer] ([place], [place], [place], [place]) Address [address] [place] [address] Care Team Providers Care Residency Coordinator Name Role Phone Unavailable Primary Care Provider Unavailabl e Encounter Details Date Type Department Care Team (Late st Contact Info) Description 01/25/2020 Transcribed Document [facility] [place] [facility] [place] [address] ProviderAlexander MD [address] [place] [address] Social History Tobacco Use Types Packs/Day Years Used Date Smoking Tobacco: Never Assessed Comments Unknown Sex and Gender Information Value Date Recorded Sex Assigned at Not on file Legal Sex Female 6:06 PM CDT Gender Identity Not on file Sexual Orientation Not on file documented as of this encounter Miscellaneous Notes * Cerner Conversion Note - Historical ProviderMD - 01/25/2020 2:00 AM CDT Rn Licensed Practical Details Entered On: 01/25/2020 8:23 EDT Performed [...]
--- OUTSIDE RECORDS SUMMARY | 2025-02-21 09:17 | XMS_ITS | Encounter Summary ---
Author Organization [employer] ([place], [place], [place], [place]) Address [address] [place] [address] Care Team Providers Care Bank Accountant Name Role Phone Unavailable Primary Care Provider Unavailabl e Encounter Details Date Type Department Care Team (Late st Contact Info) Description 01/24/2020 Transcribed Document [facility] [place] [facility] [place] [address] ProviderAlexander MD [address] [place] [address] Social History Tobacco Use Types Packs/Day Years [...]
--- OUTSIDE RECORDS SUMMARY | 2025-02-21 09:17 | XMS_ITS | Encounter Summary ---
Author Organization [employer] ([place], [place], [place], [place]) Address [address] [place] [address] Care Team Providers Care Environmental Services Tech Name Role Phone Unavailable Primary Care Provider Unavailabl e Encounter Details Date Type Department Care Team (Late st Contact Info) Description 01/18/2020 Transcribed Document [facility] [place] [facility] [place] [address] ProviderAlexander MD [address] [place] [id number] Social History Tobacco Use Types Packs/Day Years [...] Source : Stated Height Entry Format : [place] Height, Feet : 5 ft(Converted to: 152 cm, 60 Inch) Height, Inches : 5.5 Inch(Converted to: 0 ft 6 Inch, 13.97 cm) Clinical Height : 166.37 cm Weight Source : Standing scale Weight Entry Format : [place] Clinical Dosing Weight : 111.36 kg Weight, Pounds : 245 lb Body Surface Area (BSA) : 2.17 m2 Body Mass Index : 40.2 kg/m2 (>HHI) [place] Body Weight : 58 kg DAVY DAY [...] DAVY DAY RN - 01/18/2020 15:25 EDT Stark Suicide Severity Rating Scale (C-SSRS) CSSRS Past [...] #2 Relationship : - Primary Language : Mongolian Communication Barrier : None Assistant Office Manager Needed : No DAVY DAY RN - [...] DAVY DAY RN - 01/18/2020 15:25 EDT documented in this encounter Plan of Treatment Not on file documented as of this encounter Visit Diagnoses Not on filedocumented in this encounter
--- OUTSIDE RECORDS SUMMARY | 2025-02-21 09:17 | XMS_ITS | Encounter Summary ---
Author Organization [employer] ([place], [place], [place], [place]) Address [address] [place] [address] Care Team Providers Care Salt Miner Name Role Phone Unavailable Primary Care Provider Unavailabl e Encounter Details Date Type Department Care Team (Late st Contact Info) Description 01/25/2020 Transcribed Document [facility] [place] [facility] [place] [address] ProviderAlexander MD [address] [place] [phone] Social History Tobacco Use Types Packs/Day Years [...] Arteaga MD - 01/25/2020 1:52 PM CDT [place] [id number] PAMELA ALFONSO :1980 Visit Time:01/24/2020 Your Visit [...] week Where: [address] [place] [address]- [employer] (1) Medications What How Much When Instructions [...] cannot use soap and water, use hand stripper apprentice. ? Change your bandage as told by [...] ask your doctor. General instructions ??? Take exjj-zrn-lonorgn and prescription medicines only as told by your doctor. ??? Do not take aspirin or ibuprofen. These medicines can cause bleeding. ??? To prevent or treat constipation while you are taking prescription pain medicine, your doctor may suggest that you: ? Drink enough fluid to keep your urine clear or pale yellow. ? Take qzxr-pis-wekukcc or prescription medicines. ? Eat foods that [...] 04/15/2009 Document Revised: 06/25/2017 Document Reviewed: 06/25/2017 [employer] (acquired by [employer] in 2014) Interactive Patient Education ?? 2020 [employer]. Abdominal Hysterectomy, Care After This sheet gives [...] and water are not available, use hand stripper apprentice. ? Change your dressing as told by [...] health care provider. General instructions ??? Take tgis-kea-udrtzkb and prescription medicines only as told by your health care provider. ??? Do not take aspirin or ibuprofen. These medicines can cause bleeding. ??? To prevent or treat constipation while you are taking prescription pain medicine, your health care provider may recommend that you: ? Drink enough fluid to keep your urine clear or pale yellow. ? Take ucgp-jwd-yzsyscp or prescription medicines. ? Eat foods that [...] 01/24/2006 Document Revised: 06/25/2017 Document Reviewed: 06/25/2017 [employer] (acquired by [employer] in 2014) Interactive Patient Education ?? 2020 [employer]. acetaminophen and oxycodone (a SEET a MIN [...] may report side effects to FDA at 8-561-KYY-8881. What other drugs will affect acetaminophen and [...] affect acetaminophen and oxycodone, including prescription and smnc-cov-pyyeeuu medicines, vitamins, and herbal products. Not all [...] to ensure that the information provided by [employer] ('[employer]') is accurate, up-to-date, and complete, but no guarantee is made to that effect. Drug information contained herein may be time sensitive. [employer] information has been compiled for use by healthcare practitioners and consumers in the [place] and therefore [employer] does not warrant that uses outside of the [place] are appropriate, unless specifically indicated otherwise. [employer]'s drug information does not endorse drugs, diagnose patients or recommend therapy. [employer] drug information is an informational resource designed [...] effective or appropriate for any given patient. [facility] does not assume any responsibility for any aspect of healthcare administered with the aid of information [facility] [facility] provides. The information contained herein is not intended to cover all possible uses, directions, precautions, warnings, drug interactions, allergic reactions, or adverse effects. If you have questions about the drugs you are taking, check with your doctor, nurse or pharmacist. Copyright 3386-1326 [employer] [place] [employer]. Version: . Revision Date: 08/11/2019. Emergency Awareness [...] Assistance with quitting is available by contacting 2-716-RNHM-NOW. This is a free resource providing counseling, [...] range between ( 1.0 and 7.0 ) [employer] #: 0.59 K/uL -- Normal range between ( 0.24 and 0.82 ) [employer]os #: 0.22 K/uL -- Normal range between ( 0.04 and 0.54 ) [place] %: 6.5 % -- Normal range between [...] was given the opportunity to ask questions. Patient/Solar Sales Estimator Name: Patient/Solar Sales Estimator Signature: Relationship to Patient: Clinician/Hospital Solar Sales Estimator Signature: Date: documented in this encounter Plan of Treatment Not on file documented as of this encounter Visit Diagnoses Not on filedocumented in this encounter
--- OUTSIDE RECORDS SUMMARY | 2025-02-21 09:18 | XMS_ITS | Encounter Summary ---
[facility] Address [address] [place] [address] Care Team Providers Care Certified Phlebotomist Name Role Phone Bobby Goyal MD Primary Care Provider Reason for Visit * Reason Onset Date Comments MOTION SICKNESS 02/01/2025 Encounter Details Date Type Department Care Team (Late st Contact Info) Description 02/01/2025 Telephone [facility] [address] [place] [address] [place] [address] Bobby Goyal MD [address] [place] [address] [place] [address] MOTION SICKNESS Social History Tobacco Use Types Packs/Day Years Used Date Smoking Tobacco: Former Cigarettes 1 18 0 07/21/1990 - 07/21/2008 Smokeless Tobacco: Never Alcohol Use Standard Drinks/Week Comments Not Currently 0 (1 standard drink = 0.6 oz pur e alcohol) OCCASIONALLY AUDIT-C Answer Date Recorded Q1: How often do you have a drink containing alc ohol? Never 06/26/2020 Average Number of Drinks Not on file 020 Frequency of Binge Drinking Not on file 01/2020 PHQ-2 Answer Date Recorded Retired PHQ-9: Brief Depression Severity Measure Score 0 05/27/2023 PHQ-2 Answer Date Recorded Patient Health Questionnaire-9 Score 0 06/08/2024 Comments No Sex and Gender Information Value Date Recorded Sex Assigned at Not on file Legal Sex Female 4:17 PM EDT Gender Identity Not on file Sexual Orientation Not on file documented as of this encounter Miscellaneous Notes * Telephone Encounter - Rut Helm - 02/01/2025 3:56 PM EDT I have let her know that this has been called in for her. TF * Telephone Encounter - Ilana Vazquez RegSched Rep - 02/01/2025 10:07 AM EDT Caller: Esther Mark Relationship: Self Best call back number: [phone] What medication are you requesting: SEA MOTION PATCHES What are your current symptoms: HAD SEA SICKNESS ON LAST CRUISE. SHE HAD PILLS THEN AND THEY DIDN'TWORK. If a prescription is needed, what is your preferred pharmacy and phone number: [facility] [address] [place] [address] [facility] [phone] Additional notes: LEAVING FOR CRUISE ON 02/08/25. WILL BE GONE FOR TWO WEEKS. documented in this encounter Plan of Treatment Upcoming Encounters Date Type Department Care Team (Late st Contact Info) Description 06/07/2025 9:00 AM EST Office Visit [facility] [address] [place] [address] [place] [phone] Bobby Goyal MD [address] [place] [address] [place] [id number] documented as of this encounter Visit Diagnoses Not on filedocumented in this encounter Care Teams Certified Phlebotomist Relationship Specialty Start Date End Date Bobby Goyal MD [address] [place] [address] [place] [id number] PCP - General Internal Medicine 02/08/20 documented as of this encounter
--- OUTSIDE RECORDS SUMMARY | 2025-02-21 09:18 | XMS_ITS | Clinical Summary ---
[facility] Address [address] [place] [id number] Care Team Providers Care Rolls Mill Operator Name Role Phone Bobby Goyal MD Primary Care Provider [phone] Allergies Active Allergy Reactions Criticality Noted Date Comments Hydrocodone Other (See Comments) Low 02/05/2022 nausea Hymenoptera Venom Preparations Unknown - Low Severity 02/21/2022 Penicillins Unknown (See Comments) Low 01/11/2021 Medications Blood Glucose Monitoring Suppl (Accu-Chek Guide) w/Device kit 1 each by Other route Daily. use to check blood sugar every day 01/16/20 22 Active Accu-Chek Guide test strip CHECK BLOOD SUGAR EVERY DAY 01/16/20 22 Active Accu-Chek Softclix Lancets lancets CHECK BLOOD SUGAR EVERY DAY 01/16/20 22 Active Linzess 290 MCG capsule capsule TAKE 1 CAPSULE BY MOUTH EVERY DAY 30 MINUTES BEFORE FIRST MEAL OF THE DAY ON AN EMPTY STOMACH 04/15/20 22 Active Cholecalciferol 25 MCG (1000 UT) tablet Take 1 tablet by mouth Daily. Active cephalexin (Keflex) 500 MG capsuleIndicati ons:Strep pharyngitis Take 1 capsule by mouth 2 (Two) Times a Day. 20 capsule 08/09/19 25 Active Cholecalciferol (Vitamin D) 50 MCG (2000 UT) tablet Take 1 tablet by mouth Daily. Active levocetirizine (XYZAL) 5 MG tablet TAKE 1 TABLET BY MOUTH ONCE DAILY IN THE EVENING 90 tablet 1 09/01/19 25 Active methocarbamol (ROBAXIN) 500 MG tablet 1 tablet 3 (Three) Times a Day. 11/24/19 25 Active Semaglutide, 2 MG/DOSE, (Ozempic, 2 MG/DOSE,) 8 MG/3ML solution pen-injectorInd ications:Type 2 diabetes mellitus without complication, without long-term current use of insulin INJECT 2 MG SUBCUTANEOUSLY ONCE A WEEK 3 mL 1 01/14/20 25 Active fluticasone (FLONASE) 50 MCG/ACT nasal spray Administer 1 spray into the nostril(s) as directed by provider Daily. 18.2 g 3 01/18/20 25 Active ondansetron (Zofran) 4 MG tablet Take 1 tablet by mouth Every 8 (Eight) Hours As Needed for Nausea or Vomiting. 10 tablet 1 01/18/20 25 Active Scopolamine 1 MG/3DAYS patchIndication s:Motion sickness, initial encounter Apply initial patch behind ear 8 hours prior to need for antiemetic effect, replace every 72 hours alternating application behind each ear until need for use ends. 5 patch 02/02/20 25 Active Active Problems Problem Noted Date Diagnosed Date Stress incontinence of urine 12/02/2024 Assessment & Plan (12/02/2024 11:43 AM EDT): 2 months history of some mild stress incontinence, seemingly correlating with her weight gain. We did discuss need to reduce her weight, as well as discussed the concept of Kegel exercises. She is unlikely to benefit from antimuscarinic agent at this time. Strep pharyngitis 08/09/2024 Assessment & Plan (08/09/2024 11:13 AM EST): Patient declined strep, COVID and flu testing in office today, however physical exam findings consistent with a streptococcal pharyngitis. Patient noted to have bilateral tonsillar enlargement, diffuse petechial pharyngeal rash as well as tonsillar exudate. Will treat with twice daily cephalexin for the next 10 days. Patient advised on analgesic measures including ibuprofen, Tylenol, warm salt water gargle, [id number]-ybypwub lozenges and sprays. Patient vies she will also need new toothbrush in 3 to 4 days. Screen for colon cancer 06/08/2024 Overview (06/08/2024): Colonoscopy on 09/22/2019 revealing a single polyp. Refer for repeat colonoscopy correlating to 09/2024 Assessment & Plan (12/02/2024 11:45 AM EDT): Colonoscopy in 09/2019 revealed a single polyp, patient having been given referral for colonoscopy follow-up visit in 05/2024. She has not yet scheduled this procedure, and is advised of the importance of doing so, patient indicating that she will Assessment & Plan (06/08/2024 6:46 PM EST): Colonoscopy on 09/22/2019 revealing a single polyp. Refer for repeat colonoscopy correlating to 09/2024 Create Current Assessment & Plan Note Skin lesion of breast 06/08/2024 Assessment & Plan (06/08/2024 6:49 PM EST): Patient notes lesion on the left breast couple days ago. Clinically most compatible with a spider angioma. Observation recommended with the patient advise if develops any significant increase in size, change in quality of the lesion, discomfort or other concern. Chronic right-sided low back pain with right-claude ed sciatica 04/21/2024 Assessment & Plan (04/21/2024 2:53 PM EDT): Acute on chronic right lumbago, currently having 3 suspicious for right proximal sciatica. Not induced at this time with negative straight leg raise with neurovascular Arnulfo in her lower extremities intact. Treating with prednisone concomitantly for her back as well as her heel pain. Follow that with use of prednisone. Advise if not improving Pain of right heel 04/21/2024 Assessment & Plan (04/21/2024 2:52 PM EDT): 3 weeks history of nontraumatic right foot pain more noted in the heel area. Clinically by location does not appear to be classic plantar fasciitis but more on the inferior and posterior aspect of calcaneus possibly an Achilles bursitis. Treating with prednisone, followed by Motrin, use heel cup for support and arch support shoes. Advise if not improving over the next couple weeks, at which point we will then consider referral to podiatry Tick bite of abdomen 12/24/2023 Assessment & Plan (12/24/2023 1:59 PM EDT): Describes tick bite of her abdomen that was removed from abdomen 3 days ago, patient indicating features consistent with a [place] tick, uncertain how long the tick actually had been present subsequently developing an itchy area of redness around the lesion. Most consistent with a localized allergic reaction, does not have clinical features consistent with infection including tenderness or swelling, no systemic symptoms or signs of illness. Given potential for tick to have been present for no more than 72 hours, will empirically treat with doxycycline 200 mg p.o. x 1 dose for prophylaxis. Treat with topical triamcinolone cream for itch. Advised if not improving or if develops any significant progression that would be be suggestive of cellulitis Rash 12/24/2023 Assessment & Plan (12/24/2023 1:59 PM EDT): Localized rash associated with noted tick bite on her abdomen, pruritic but nontender, clinically consistent with a localized allergic reaction. Treat with topical triamcinolone cream as needed. Advise if not resolving. Benign head tremor 07/28/2023 Paresthesia 07/28/2023 Cervical strain 07/28/2023 Acute post-traumatic headache, not intractable 0 07/28/2023 Constipation 05/27/2023 Assessment & Plan (06/08/2024 6:45 PM EST): Prior constipation which patient relates is currently resolved no longer requiring Linzess. Elevated blood pressure reading 05/27/2023 Assessment & Plan (06/08/2024 6:50 PM EST): EKG today unremarkable. Very minimal acute elevated diastolic pressure, chronically historically is a very satisfactory blood pressure readings precluding need for antihypertensive. Monitor blood pressures at home closely. EKG today unremarkable Encounter for general adult medical examination with abnormal findings 05/27/2023 Assessment & Plan (06/08/2024 6:47 PM EST): 43-year-old white female presents for complete physical with specific health issues being addressed as detailed below, health maintenance includes need for update of mammogram, colonoscopy to be updated spring 2024, Pap smear previously negative no longer required status post hysterectomy for benign disease, close vaccine updated today with patient declining recommended COVID-19 vaccine, update screening labs. Influenza vaccination administered at current vi sit 05/27/2023 Encounter for screening mamm ogram for malignant neoplasm of breast 05/27/2023 Assessment & Plan (12/02/2024 11:42 AM EDT): Previously given referral for mammogram. Patient indicates that she will schedule on her own, being advised of the importance of doing so History of colon polyps 05/27/2023 Overview (06/08/2024): Colon polyp per colonoscopy in 09/2019. Referral for repeat colonoscopy pending for 09/2024 Assessment & Plan (12/02/2024 12:38 PM EDT): Previous polyp noted in colonoscopy in 09/2019. Patient was given referral for colonoscopy in 05/2024. Patient has not yet scheduled this procedure, and is advised to do so for health risk reduction, indicating that she will. Screening for thyroid disorder 05/27/2023 Tinea pedis of right foot 05/27/2023 Right carpal tunnel syndrome 05/27/2023 Vitamin D deficiency 05/27/2023 Assessment & Plan (06/08/2024 6:45 PM EST): Taking Vitamin D 1000 IU daily. Update level. Chronic midline low back pain without sciatica 1 07/27/2022 Assessment & Plan (09/05/2023 3:47 PM EST): Patient states that she has had previous issues with disc in her lumbar spine. Today presents with approximately 3 days worth of chronic, dull low back pain, at times becoming sharp in nature. It has been unresponsive to any type of NSAID or Tylenol use, she does not feel it is particularly positional in nature. On physical exam she does have positive right straight leg raise. -Will treat with 5-day course of muscle relaxant baclofen as well as steroid for inflammation. Patient advised on gentle stretching as well as appropriate rest, avoiding pushing, pulling or tugging. If no improvement can follow-up at the end of her treatment course for further evaluation and treatment Meralgia paresthetica of right side 05/27/2023 Moderate obesity 11/18/2022 Assessment & Plan (12/02/2024 11:47 AM EDT): Patient has gained 10 pounds of weight since her last office visit in 07/2024, admittedly being less active though indicated she still pursues a healthy diet with intermittent fasting, and is still taking her Ozempic 2 mg subcu weekly prescribed for her diabetes. She will improve her exercise regimen, attempting to lose weight, we will reassess at her follow-up visit for complete physical in 05/2025 Assessment & Plan (06/08/2024 6:45 PM EST): Has gained 8 pounds of weight over the last month and a half, though historically did have significant benefit with weight loss utilizing Ozempic 2 mg subcu weekly prescribed primarily for diabetic control. Continue this current medication regimen along with efforts at healthy lifestyle with diet and exercise Assessment & Plan (04/21/2024 2:51 PM EDT): Continues weight loss with Ozempic 2 mg daily prescribed for her diabetes, 2 pound weight loss in the last 5 months. Continue healthy lifestyle efforts. Reassess at follow-up visit for complete physical in 05/2024 Assessment & Plan (12/24/2023 1:57 PM EDT): Overall has had clinical improvement with her obesity taking Ozempic 2 mg subcu weekly primarily prescribed for her diabetes, but has gained 5 pounds of weight in the last 4 months. She has not been as diligent watching her diet and exercise and will reinitiate attempts at both. Transient lingual papillitis 11/18/2022 Gas pain 05/30/2022 Diabetes 03/01/2022 Anemia 03/01/2022 Allergic rhinitis due to pollen 03/01/2022 Assessment & Plan (06/08/2024 6:43 PM EST): Utilizing Zyrtec and Flonase as needed, not currently symptomatic. Bladder spasms 03/01/2022 IBS (irritable bowel syndrome) 03/01/2022 Mixed hyperlipidemia 03/01/2022 Assessment & Plan (06/08/2024 6:43 PM EST): Prior lipid panels have never justified initiation of targeted therapy despite her diabetic diagnosis. Update cholesterol profile make further recommendation accordingly. Moderate persistent asthma 03/01/2022 Type 2 diabetes mellitus without complication Overview (12/02/2024): Hemoglobin A1c 6.6% in 05/2023, 6.1% in 12/2023, 6.3% in 05/2024, 6.5% in 11/2024 Assessment & Plan (12/02/2024 11:46 AM EDT): Very minimal deterioration in her diabetic control with a hemoglobin A1c today of 6.5% versus 6.3% in 05/2024. She has had a 10 pound weight gain correlating to a decreased activity level though indicates she is still maintaining a healthy diet. We discussed need to improve her lifestyle efforts, and will continue her Ozempic 2 mg subcu weekly as monotherapy, repeating another hemoglobin A1c in 6 months Assessment & Plan (06/08/2024 6:44 PM EST): Maintaining very satisfactory glycemic control taking Ozempic 2 mg subcu weekly for monotherapy, hemoglobin A1c today 6.3% versus prior value of 6.1% in 12/2023, no known secondary sequelae. Diabetic eye evaluation reportedly normal. Not currently requiring CORDELIA inhibitor/ARB and currently not on statin given excellent prior lipid profiles. Pursue healthy lifestyle with diet and exercise and repeat testing in 6 months. Assessment & Plan (04/21/2024 2:51 PM EDT): Maintaining excellent glycemic control taking Ozempic 2 mg subcu weekly, hemoglobin A1c in 12/2023 of 6.1%. Continue current regimen with healthy lifestyle efforts including diet and exercise. Will repeat another hemoglobin A1c at her complete physical in 05/2024. Assessment & Plan (12/24/2023 1:57 PM EDT): Improved glycemic control taking Ozempic 2 mg subcu weekly, with hemoglobin A1c 6.1% today versus previous value of 6.6% in 05/2023. Continue efforts at healthy lifestyle with diet and exercise. Ensure diabetic eye evaluation gets updated. Reassess in 6 months. Hiatal hernia 02/05/2022 Gallbladder polyp 01/31/2022 Melena 07/26/2021 GERD (gastroesophageal reflux disease) 0 Bone pain 03/01/2020 Cough 02/10/2020 Former smoker 02/10/2020 Overview (06/08/2024): 46-mafs-dphi history of cigarette smoking abstaining since 2008 Assessment & Plan (06/08/2024 6:48 PM EST): 99-rlpj-lddo of cigarette smoking abstaining since 2008. Does not require low- dose screening chest CT Thumb pain 03/18/2018 Resolved Problems Problem Noted Date Diagnosed Date Resolved Date Dyslipidemia 05/27/2023 06/08/2024 HTN (hypertension) 03/01/2022 3 Chronic cough 03/01/2022 10/14/2022 Gastroesophageal reflux dise ase without esophagitis 03/01/2022 05/27/2023 Hypertension 03/01/2022 12/02/2024 Chronic GERD 02/05/2022 05/27/2023 Encounters Date Type Department Care Team Description 02/01/2025 Telephone [facility] [address] [place] [address] [place] [phone] Bobby Goyal MD MOTION SICKNESS 01/18/2025 Results Follow-Up [address] [place] [phone] Bobby Goyal MD 01/17/2025 Refill [facility] [address] [place] [address] [place] [phone] Bobby Goyal MD 01/13/[address] [place] [phone] Bobby Goyal MD Type 2 diabetes mellitus without complication, without long-term current use of insulin 12/13/[address] [place] [phone] Bobby Goyal MD Type 2 diabetes mellitus without complication, without long-term current use of insulin 12/02/2024 9:45 AM EDT Office Visit [facility] [address] [place] [phone] Bobby Goyal MD Type 2 diabetes mellitus without complication, without long-term current use of insulin (Primary Dx); Moderate obesity; Stress incontinence of urine; History of colon polyps; Screen for colon cancer; Encounter for screening mammogram for malignant neoplasm of breast 12/02/2024 Travel from Last 3 Months Immunizations Immunization Administration Dates Next Due COVID-19 (MODERNA) 1st,2nd,3rd Dose Monovalent 0 09/09/2020,08/12/2020 COVID-19 (MODERNA) Monovalent Original Booster 1 07/26/2020 Fluzone >6mos 06/08/2024 Fluzone (or Fluarix & Flulaval for VFC) >6mos Fluzone Quad >6mos (Multi-dose) 04/25/2022 Influenza TIV (IM) 05/16/2020 Influenza, Unspecified 04/25/2022 Pneumococcal Conjugate 20-Valent (PCV20) 022 Tdap 04/25/2022 Family History Medical History Relation Name Comments Diabetes Maternal Grandfather Diabetes Maternal Grandmother Diabetes Mother Diabetes Paternal Grandfather Diabetes Paternal Grandmother Relation Name Status Comments Brother Alive Child x2 Alive Father Alive Maternal Grandfather Maternal Grandmother Mother Alive Paternal Grandfather Paternal Grandmother Sister Alive Social History Tobacco Use Types Packs/Day Years Used Date Smoking Tobacco: Former Cigarettes 1 18 0 07/21/1990 - 07/21/2008 Smokeless Tobacco: Never Tobacco Cessation:Counseling Given: Not Answered Alcohol Use Standard Drinks/Week Comments Not Currently [...] on file Sexual Orientation Not on file Last Filed Vital Signs Vital Sign Reading Time Taken Comments Blood Pressure 124/80 12/02/2024 9:42 AM EDT Pulse 88 12/02/2024 9:42 AM EDT Temperature 36.9 C (98.4 F) 12/02/2024 9:42 AM EDT Respiratory Rate 18 12/02/2024 9:42 AM EDT Oxygen Saturation 99% 12/02/2024 9:42 AM EDT Inhaled Oxygen Concentration - - Weight 101 kg (223 lb) 12/02/2024 9:42 AM EDT Height 166.4 cm (5' 5.5 ) 12/02/2024 9:42 AM EDT Body Mass Index 36.54 12/02/2024 9:42 AM EDT Plan of Treatment Upcoming Encounters Date Type Department Care Team (Late st Contact Info) Description 06/07/2025 9:00 AM EST Office Visit [facility] [address] [place] [address] [place] [phone] Bobby Goyal MD [address] [place] [address] Health Maintenance Due Date Last Done Comments Hepatitis B (1 of 3 - 19+ 3- dose series) 1998 COVID-19 Vaccine (2023-2 5 season) 2024 05/26/2021, 09/09/2020, 08/12/2020 Annual Gynecologic Pelvic an d Breast Exam 05/28/2024 05/27/2023, 12/19/2021 COLOGUARD 2024 COLON CANCER SCREENING 5 YEA R SIGMOIDOSCOPY [address] COLONOGRAPHY 2024 FECAL OCCULT BLOOD TEST 2024 FIT Testing (1 year) 2024 DIABETIC EYE EXAM 02/01/2025 02/02/2024 (Ishan adames-Reported (Performed Externally)), 09/18/2021 (Patient-Reported (Performed Externally)) INFLUENZA VACCINE 04/20/2025 06/08/2024, , 04/25/2022, Additional history exists HEMOGLOBIN A1C 06/04/2025 12/02/2024, 05/21, 12/24/2023, Additional history exists ANNUAL PHYSICAL 06/08/2025 06/08/2024, 110 01/2023, 05/16/2021 DIABETIC FOOT EXAM 06/08/2025 06/08/2024, 1 08/08/2023, 06/08/2024, Additional history exists URINE MICROALBUMIN-CREATININ E RATIO (uACR) 06/08/2025 06/08/2024 LIPID PANEL 08/09/2025 08/09/2024, 0 01/2023, 06/07/2022, Additional history exists MAMMOGRAM 01/18/2027 01/18/2025, 08/2020, 05/22/2021 COLONOSCOPY 09/21/2029 09/22/2019, 0 10/2019, 09/22/2019 COLORECTAL CANCER SCREENING 09/21/2029 TDAP/TD VACCINES (2 - Td or Tdap) 04/25/2032 Pneumococcal Vaccine 0-49 Completed 04/25/2022 HEPATITIS C SCREENING Completed 06/07/2022, 022 Procedures Procedure Name Priority Date/Time Associated Diagnosis Comments SCANNED - MAMMO 01/18/2025 POCT GLUCOSE, BLD (NON STRIP) Routine 12/02/2024 9:54 AM EDT Type 2 diabetes mellitus without complication, without long-term current use of insulin POCT GLYCOSYLATED HEMOGLOBIN (HGB A1C) Routine 12/02/2024 9:53 AM EDT Type 2 diabetes mellitus without complication, without long-term current use of insulin LIPID PANEL Routine 08/09/2024 10:57 AM EST Encounter for general adult medical examination with abnormal findings HEPATITIS C ANTIBODY Routine 06/07/2022 8:50 AM EST Need for hepatitis C screening test SCANNED - COLONOSCOPY 09/22/2019 from Last 3 Months or Most Recently Relevant to Health Maintenance Results * MAMMO Scan (01/18/2025) Anatomical Region Laterality Modality Other us Bobby Goyal MD CHART REVIEW TABS Final Res ult * POC Glucose, Blood (12/02/2024 9:54 AM EDT) Glucose 126 70 - 130 mg/dL Blood 12/02/2024 9:54 AM EDT us Bobby Goyal MD POINT OF CARE TEST ORDERABLES Final Result * (ABNORMAL) POC Glycosylated Hemoglobin (Hb A1C) (12/02/2024 9:53 AM EDT) Hemoglobin A1C 6.5(A) 4.5 - 5.7 % [facility] Lot Number [id number] [facility] Expiration Date [address] [facility] Blood 12/02/2024 9:53 AM EDT us oBbby Goyal MD POINT OF CARE TEST ORDERABLES Final Result [facility]
[address] [place] [address], * Lipid Panel (08/09/2024 10:57 AM EST) Total Cholesterol 109 100 - 199 mg/dL [facility] Triglycerides 32 0 - 149 mg/dL [facility] HDL Cholesterol 64 >39 mg/dL [facility] VLDL Cholesterol Jesus 10 5 - 40 mg/dL [facility] LDL Chol Calc (NIH) 35 0 - 99 mg/dL [facility] Blood Structure of right upper limb / Unknown 08/09/2024 10:57 AM EST 08/09/2024 Comment:Blood Manual Differe n Narrative [facility] ([facility]) - 08/10/2024 8:07 AM EST Performed at: [facility] [address] [place] [id number] Drapery Sewer Hand: Fredy Slaughter PhD, Phone: [phone] us Bobby oGyal MD LAB BLOOD ORDERABLES Final Res ult Performing Organization Address [facility] [[email or web address]] de Phone Number [facility] (AMBULATORY) [address] [place] [address], [facility] [address] [place] [id number], * Hepatitis C Antibody (06/07/2022 8:50 AM EST) Hep C Virus Ab <0.1 0.0 - 0.9 s/co ratio [facility] Comment: Negative: < 0.8 Indeterminate: 0.8 - 0.9 Positive: > 0.9 HCV antibody alone does not differentiate between previous resolved infection and active infection. The CDC and current clinical guidelines recommend that a positive HCV antibody result be followed up with an HCV RNA test to support the diagnosis of acute HCV infection. [facility] offers Hepatitis C Virus (HCV) RNA, Diagnosis, NILSON (846249) and Hepatitis C Virus (HCV) Antibody with reflex to Quantitative Real-time PCR ([id number]). Blood Structure of left upper limb / Unknown 06/07/2022 8:50 AM EST 06/07/2022 Comment:Blood Release to ishan Navarrete [facility] (AM[facility]UL[facility]ORY) - 06/08/2022 8:07 AM EST Performed at: [facility] [address] [place] [id number] Drapery Sewer Hand: Fredy Slaughter PhD, Phone: [phone] us Bobby Goyal MD LAB BLOOD ORDERABLES Final Res ult Performing Organization Address City/[facility]/ZIP Co de Phone Number [facility] ([facility]UL[facility]) [address] [place] [address], [place] [phone] [facility] [address] [place] [id number], * SCANNED - COLONOSCOPY (09/22/2019) us Arun Zhao MD CHART REVIEW TABS F inal Result from Last 3 Months or Most Recently Relevant to Health Maintenance Insurance EMPLOYEE Care Teams Rolls Mill Operator Relationship Specialty Start Date End Date Bobby Goyal MD [address] [place] [address] [place] [address] PCP - General Internal Medicine 02/08/20
--- OUTSIDE RECORDS SUMMARY | 2025-02-21 09:18 | XMS_ITS | Encounter Summary ---
Author Organization [employer] ([place], [place], [place], [place]) Address [address] [place] [address] Care Team Providers Care Foot Piece Assembler Name Role Phone Unavailable Primary Care Provider Unavailabl e Encounter Details Date Type Department Care Team (Late st Contact Info) Description 01/24/2020 Transcribed Document [facility] [place] [facility] [place] [address] ProviderAelxander MD [address] [place], [place] [address] Social History Tobacco Use Types Packs/Day Years [...] Brandee Dwyer, CHANTELL - 01/24/2020 11:39 EDT documented in this encounter Plan of Treatment Not on file documented as of this encounter Visit Diagnoses Not on filedocumented in this encounter
--- OUTSIDE RECORDS SUMMARY | 2025-02-21 09:18 | XMS_ITS | Encounter Summary ---
Author Organization [employer] ([place], [place], [place], [place]) Address [address] [place] [address] Care Team Providers Care Manager Respiratory Name Role Phone Unavailable Primary Care Provider Unavailabl e Encounter Details Date Type Department Care Team (Late st Contact Info) Description 01/24/2020 Transcribed Document [facility] [place] [facility] [place] [address] ProviderAlexander MD [address] [place], [place] [id number] Social History Tobacco Use Types Packs/Day Years [...] EDT Performed On: 01/24/2020 11:38 EDT by Alexys Love, Rn Teaching/Learning Assessment Barriers To Learning [...]
--- OUTSIDE RECORDS SUMMARY | 2025-02-21 09:18 | XMS_ITS | Encounter Summary ---
Author Organization [employer] ([place], [place], [place], [place]) Address [address] [place] [address] Care Team Providers Care Lead Setter Name Role Phone Unavailable Primary Care Provider Unavailabl e Encounter Details Date Type Department Care Team (Late st Contact Info) Description 01/24/2020 Transcribed Document [facility] [place] Medicine [facility] [place] [address] ProviderAlexander MD [address] [place], [place] [id number] Social History Tobacco Use Types Packs/Day Years [...]
--- OUTSIDE RECORDS SUMMARY | 2025-02-21 09:18 | XMS_ITS | Encounter Summary ---
[facility] Address [address] [place] [address] Care Team Providers Care Cryptographic Clerk Name Role Phone Bobby Goyal MD Primary Care Provider Encounter Details Date Type Department Care Team (Late st Contact Info) Description 01/18/2025 Results Follow-Up [facility] [address] [place] [address] [place] [address] Bobby Goyal MD [address] [place] [address] [place] [address] Social History Tobacco Use Types Packs/Day Years [...] * Telephone Encounter - Rut Helm - 01/19/2025 5:08 PM EDT I have spoke with her regarding her mamm results. TF documented in this encounter Plan of Treatment Upcoming Encounters Date Type Department Care Team (Late st Contact Info) Description 06/07/2025 9:00 AM EST Office Visit [facility] [address] [place] [id number] Bobby Goyal MD [address] [place] [address] documented as of this encounter Visit Diagnoses Not on filedocumented in this encounter Care Teams Cryptographic Clerk Relationship Specialty Start Date End Date Bobby Goyal MD [address] [place] [address] PCP - General Internal Medicine 02/08/20 documented as of this encounter
--- OUTSIDE RECORDS SUMMARY | 2025-02-21 09:18 | XMS_ITS | Encounter Summary ---
Author Organization Healthcare Address [address] [place] [address] Care Team Providers Care Airport Shuttle Driver Name Role Phone Bobby Goyal MD Primary Care Provider [phone] Encounter Details Date Type Department Care Team (Late st Contact Info) Description 10/26/2020 Orders Only External Location [address] [place] [phone] Provider, External Social History Tobacco Use Types [...] on filedocumented in this encounter Care Teams Airport Shuttle Driver Relationship Specialty Start Date End Date Bobby Goyal MD [address] [place] [address] [place] [address] PCP - General 01/11/21 documented as of this encounter
--- OUTSIDE RECORDS SUMMARY | 2025-02-21 09:18 | XMS_ITS | Encounter Summary ---
Author Organization [employer] ([place], [place], [place], [place]) Address [address] [place] [address] Care Team Providers Care Yacht Hand Name Role Phone Unavailable Primary Care Provider Unavailabl e Encounter Details Date Type Department Care Team (Late st Contact Info) Description 01/24/2020 Transcribed Document [facility] [place] [facility] [place] [address] ProviderAlexander MD [address] [place] [address] Social History Tobacco Use Types Packs/Day Years [...]
--- OUTSIDE RECORDS SUMMARY | 2025-02-21 09:18 | XMS_ITS | Encounter Summary ---
Author Organization [employer] ([place], [place], [place], [place]) Address [address] [place] [address] Care Team Providers Care Steel Division Supervisor Name Role Phone Unavailable Primary Care Provider Unavailabl e Encounter Details Date Type Department Care Team (Late st Contact Info) Description 01/24/2020 Transcribed Document [facility] [place] Family Medicine [facility] [place] [address] ProviderAlexander MD [address] [place], [place] [address] Social History Tobacco Use Types Packs/Day Years [...] Source : Stated Height Entry Format : Fiatt Height, Feet : 5 ft(Converted to: 152 cm, 60 Inch) Height, Inches : 5.5 Inch(Converted to: 0 ft 6 Inch, 13.97 cm) Clinical Height : 166.37 cm Weight Source : Standing scale Weight Entry Format : Fiatt Clinical Dosing Weight : 110.45 kg Weight, Pounds : 243 lb Body Surface Area (BSA) : 2.16 m2 Body Mass Index : 39.9 kg/m2 (HI) [place] Body Weight : 58 kg Suha Franco [...] Where was the COVID-19 Testing completed? : [facility] Date of COVID-19 Test : 01/21/2020 EDT [...] to Travelers Outside the [place] : No Suha Franco Rn - 01/24/2020 6:31 EDT Anesthesia/Transfusion [...] Suha Franco Rn - 01/24/2020 6:31 EDT [place] Suicide Severity Rating Scale (C-SSRS) CSSRS Past [...] #2 Relationship : - Primary Language : Setswana Communication Barrier : None Fraud Manager Needed : No Suha Franco Rn [...] Scale Risk Level : 25-45 Medium Risk [place] Fall Interventions : Adequate lighting, Bed in [...] rendition version of the form. Guerrero Coma Vermillion Best Motor Response : Obey commands Vermillion Best Verbal Response : Oriented Vermillion Eye Opening Response : Spontaneous Guerrero Coma Score : 15 Suha Franco Rn - 01/24/2020 6:31 EDT documented in this encounter Plan of Treatment Not on file documented as of this encounter Visit Diagnoses Not on filedocumented in this encounter
--- OUTSIDE RECORDS SUMMARY | 2025-02-21 09:18 | XMS_ITS | Referral Summary ---
Author Organization [employer] ([place], [place], [place], [place]) Address [address] [place] [address] Care Team Providers Care Clinical Nutritionist Name Role Phone Unavailable Primary Care Provider [...]
--- OUTSIDE RECORDS SUMMARY | 2025-02-21 09:18 | XMS_ITS | Encounter Summary ---
[facility] Organization [facility] Address [address] [place] [address] Care Team Providers Care Shirt Trimmer Name Role Phone Bobby Goyal MD Primary Care Provider [phone] Reason for Visit * Reason Onset Date Comments Med Refill 01/17/2025 Encounter Details Date Type Department Care Team (Late st Contact Info) Description 01/17/2025 Refill [facility] [address] [place] [address] [place] [address] Bobby Goyal MD [address] [place] [address] [place] [address] Social History Tobacco Use Types Packs/Day Years [...] as of this encounter Plan of Treatment Upcoming Encounters Date Type Department Care Team (Late st Contact Info) Description 06/07/2025 9:00 AM EST Office Visit [facility] [address] [place] [address] Bobby Goyal MD [address] [place] [address] documented as of this encounter Visit Diagnoses Not on filedocumented in this encounter Care Teams Shirt Trimmer Relationship Specialty Start Date End Date Bobby Goyal MD [address] [place] [address] PCP - General Internal Medicine 02/08/20 documented as of this encounter
--- OUTSIDE RECORDS SUMMARY | 2025-02-21 09:18 | XMS_ITS | Encounter Summary ---
Author Organization [employer] ([place], [place], [place], [place]) Address [address] [place] [address] Care Team Providers Care Senior Data Integration Developer Name Role Phone Unavailable Primary Care Provider Unavailabl e Encounter Details Date Type Department Care Team (Late st Contact Info) Description 01/24/2020 Transcribed Document [facility] [facility] [place] [address] ProviderAlexander MD [facility] [place], [place] [address] Social History Tobacco Use Types Packs/Day Years [...] the text rendition version of the form. documented in this encounter Plan of Treatment Not on file documented as of this encounter Visit Diagnoses Not on filedocumented in this encounter
--- OUTSIDE RECORDS SUMMARY | 2025-02-21 09:18 | XMS_ITS | Encounter Summary ---
Author Organization [employer] ([place], [place], [place], [place]) Address [address] [place] [address] Care Team Providers Care Collision Mechanic Name Role Phone Unavailable Primary Care Provider Unavailabl e Encounter Details Date Type Department Care Team (Late st Contact Info) Description 01/24/2020 Transcribed Document [facility] [place] [facility] [place] [address] ProviderAlexander MD [address] [place] [address] Social History Tobacco Use Types Packs/Day Years [...]
--- OUTSIDE RECORDS SUMMARY | 2025-02-21 09:18 | XMS_ITS | Clinical Summary ---
Author Organization Healthcare Address [address] [place] [address] Care Team Providers Care Coating Machine Feeder Name Role Phone Bobby Goyal MD Primary Care Provider [phone] Allergies Active Allergy Reactions Criticality Noted Date [...] drink first t funmi in the morning (EYE-TRACK WATCHMAN) to steady your nerves or to get [...] 3-dose series) 1998 UKY-Depression Screening 05/30/2023 05/30/2022 [id number] Vaccine ( season) 2024 05/26/2021, 09/09/2020, 08/12/2020 [...] this topic Medical Devices Implanted Type Area Electric Spot Welder Device Identifier Shelf Expiration Date Model / Serial / Lot Mesh Bio A 7cm X 10cm - [id number] - [id number] Implanted:Qty: 1 on 02/05/2022 by Ericka Eddy MD at [facility] Mesh N/A: Abdomen [employer]-[id number] 12/11/2023 [id number] / [id number] / Procedures Procedure Name Priority Date/Time Associated [...] ORDERABLES Final R esult [facility] [address] [place] [address] * Hepatitis C Antibody - ED (05/27/2022 5:45 PM EST) Hepatitis C Antibody Negative Negative 05/27/2022 8:44 PM EST [facility] Blood Venous blood specimen / Unknown Venipuncture / Unknown 05/27/2022 5:45 PM EST 05/27/2022 6:27 PM EST us Kimberli Fontaine MD LAB BLOOD ORDERABLES Final R esult [facility] [address] [place] [address] from Last 3 Months or Most Recently Relevant to Health Maintenance Insurance ANTHEM Advance Directives * Full Code (Latest Code Status on File) Date Activated Date Inactivated Comments 02/05/2022 5:37 PM 02/08/2022 2:43 PM Question Answer Comments Patient has decision-making capacity? Yes Care Teams Coating Machine Feeder Relationship Specialty Start Date End Date Bobby Goyal MD [address] [place] [address] [place] [address] PCP - General 01/11/21
--- OUTSIDE RECORDS SUMMARY | 2025-02-21 09:18 | XMS_ITS | Encounter Summary ---
Author Organization [employer] ([place], [place], [place], [place]) Address [address] [place] [address] Care Team Providers Care Cnc Mill Programmer Name Role Phone Unavailable Primary Care Provider Unavailabl e Encounter Details Date Type Department Care Team (Late st Contact Info) Description 01/24/2020 Transcribed Document [facility] [facility] [place] [address] ProviderAlexander MD [address] [place] [address] Social History Tobacco Use Types Packs/Day Years [...] On: 01/24/2020 15:11 EDT by BRYCE CHENG RN-Mattress PackerClinical Assessment Manager Progress Note Discharge Arrangements : Patient Post-Acute [...] : Clinical Condition of Patient BRYCE CHENG, CHANTELL-Mattress Packer - 01/24/2020 15:11 EDT Electronically signed by Hector, [facility] Conversion Attending Physician Cerner at 11/07/2022 6:12 PM CDT documented in this encounter Plan of Treatment Not on file documented as of this encounter Visit Diagnoses Not on filedocumented in this encounter
--- OUTSIDE RECORDS SUMMARY | 2025-02-21 09:18 | XMS_ITS | Encounter Summary ---
Author Organization [facility] Address [address] [place] [address] Care Team Providers Care Supervisor Toy Parts Former Name Role Phone Bobby Goyal MD Primary Care Provider Reason for Visit * Reason Comments Med Refill Encounter Details Date Type Department Care Team (Late st Contact Info) Description 01/13/2025 Refill [facility] [address] [place] [address] [place] [address] Bobby Goyal MD [address] [place] [address] [place] [address] Type 2 diabetes mellitus without complication, without long-term current use of insulin Social History Tobacco Use Types Packs/Day Years [...] Description 06/07/2025 9:00 AM EST Office Visit [facility] [address] [address] Bobby Goyal MD [address] [place] [address] documented as of this encounter Visit Diagnoses Diagnosis Type 2 diabetes mellitus without complication, without long-term current use of insulin documented in this encounter Care Teams Supervisor Toy Parts Former Relationship Specialty Start Date End Date Bobby Goyal MD [address] [place] [address] PCP - General Internal Medicine 02/08/20 documented as of this encounter
--- OUTSIDE RECORDS SUMMARY | 2025-02-21 09:18 | XMS_ITS | Encounter Summary ---
Author Organization [employer] ([place], [place], [place]) Address [address] [place] [address] Care Team Providers Care Mid Teacher Name Role Phone Unavailable Primary Care Provider Unavailabl e Encounter Details Date Type Department Care Team (Late st Contact Info) Description 01/24/2020 Transcribed Document [facility] [place] [facility] [place] [address] ProviderAlexander MD [address] [place] [id number] Social History Tobacco Use Types Packs/Day Years Used Date Smoking Tobacco: Never Assessed Comments Unknown Sex and Gender Information Value Date Recorded Sex Assigned at Not on file Legal Sex Female 6:06 PM CDT Gender Identity Not on file Sexual Orientation Not on file documented as of this encounter Miscellaneous Notes * Cerner Conversion Note - Alexander ProviderMD - 01/24/2020 7:52 AM CDT [facility] [place] IntraOp Summary Primary Physician: ROSELYN AGUILERA MD-OBG Finalized Date/Time: 01/24/20 09:40:12 Pt. Name: PAMELA ALFONSO ALEX Ulloa/Sex: 1980 Female Med Rec #: [id number] Physician: ROSELYN AGUILERA MD-OBG Financial #: [id number] Pt. Type: O Room/Bed: Admit/Disch: 01/24/20 04:59:00 - Institution: [facility] IntraOp Case Attendance Entry 1 Entry 2 Entry 3 Case Attendee ROSELYN AGUILERA MD-OBG Holliday, Stewart R, RN Gavi Angel, Brick Setter Role Performed Surgeon/Proceduralist, Communications Marketing Intern, First Scrub, First First Time In 01/24/20 [...] Modified By: Niko Rangel, RN Niko Rangel, Niko Lewis RN 01/24/20 09:39:48 01/24/20 09:39:48 01/24/20 09:39:48 Entry 4 Entry 5 Entry 6 Case Attendee Neymar Bates BRITTANY, SAFETY TEACHER WAYNE, ILIA Rg PA-C Role Performed Scrub, Second SAFETY TEACHER/Nurse Core Composer Feeder Physician fire control assistant Time In 01/24/20 07:25:00 01/24/20 07:25:00 [...] #1 Susan Yarbrough, Rn Role Performed Observer [employer] Product Manager, Ancillary Communications Marketing Intern, First Time In 01/24/20 07:25:00 01/24/20 07:25:00 [...] [facility] IntraOp Case Attendance Audit 01/24/20 09:40:08 Pulmonary Disease Specialist: HOLLIDSR Modifier: HOLLIDSR <+> 9 Procedure 01/24/20 09:39:48 Pulmonary Disease Specialist: HOLLIDSR Modifier: HOLLIDSR 1 <+> Time Out [...] Roboti, Cystoscopy Adult, Lysis Adhesions 01/24/20 09:17:09 Pulmonary Disease Specialist: ANYIIDSR Modifier: HOLLIDSR 1 <*> Procedure Salpingectomy [...] Out <+> 9 Other Attendee 01/24/20 08:34:17 Pulmonary Disease Specialist: HOLLIDSR Modifier: HOLLIDSR <+> 8 Case Attendee <+> 8 Role Performed <+> 8 Procedure <+> 8 Other Attendee 01/24/20 08:14:33 Pulmonary Disease Specialist: HOLLIDSR Modifier: HOLLIDSR 1 <*> Procedure Salpingectomy [...] Laparoscopic, Vaginal Hysterectomy Laparoscopic Roboti 01/24/20 08:07:30 Pulmonary Disease Specialist: HOLLIDSR Modifier: HOLLIDSR 1 <*> Procedure Salpingectomy [...] Laparoscopic, Vaginal Hysterectomy Laparoscopic Roboti 01/24/20 07:46:44 Pulmonary Disease Specialist: HOLLIDSR Modifier: HOLLIDSR 1 <+> Time In [...] [facility] IntraOp Case Times Audit 01/24/20 09:39:47 Pulmonary Disease Specialist: MARY ANNER Modifier: HOLLIDSR <+> 1 Out Room Time <+> 1 Stop Time 01/24/20 09:22:30 Pulmonary Disease Specialist: ANYIIDSR Modifier: HOLLIDSR <+> 1 Stop Time 01/24/20 07:52:05 Pulmonary Disease Specialist: ANYIIDSR Modifier: HOLLIDSR <+> 1 Start Time [...] 07:18:23 [facility] IntraOp Cautery Audit 01/24/20 07:18:23 Pulmonary Disease Specialist: DREA Modifier: HOLLIDSR <+> 1 Grounding Pad [...] By Count Performed By Gavi Angel, (Scrub) Brick Setter Count Performed By Niko Rangel RN (RN) Last Modified By: Niko Rangel RN 01/24/20 08:14:36 [facility] IntraOp Counts Verification Audit 01/24/20 08:14:36 Pulmonary Disease Specialist: HOLLIDSR Modifier: HOLLIDSR 1 <*> Procedure Salpingectomy Laparoscopic, Vaginal Hysterectomy Laparoscopic Roboti [facility] IntraOp Counts Final Entry 1 Procedure Salpingectomy Laparoscopic, Vaginal Hysterectomy Laparoscopic Roboti, Cystoscopy Adult, Lysis Adhesions Final Count Info Count Type Sponge, Sharps, Miscellaneous Counts Verification Skin Closure/end of Sequence procedure Count Results Correct, surgeon notified Counts Performed By Count Performed By Gavi Angel, (Scrub) Brick Setter Count Performed By Niko Rangel RN (RN) Last Modified By: Niko Rangel RN 01/24/20 09:35:03 [facility] IntraOp Counts Final Audit 01/24/20 09:35:03 Pulmonary Disease Specialist: HOLLIDSR Modifier: HOLLIDSR 1 <*> Procedure Salpingectomy [...] Yes Assessment Complete Fire Risk Niko Rangel all around gear machine operator Verified By Fire Risk 01/24/20 07:16:00 Assessment Verified Date/Time Fire Risk Standard Fire Yes Safety Precautions Followed Last Modified By: Niko Rangel RN 01/24/20 07:16:49 [facility] IntraOp General Case Icicle Machine Operator 1 Case Information OR OR 04 [facility] Case Level 1 Room Verified Yes Wound Class II - Clean-Contaminated Specialty SN Gynecology Anesthesia Type General ASA Class 3 Diagnosis Preop Diagnosis pelvic pain, AUB Postop Diagnosis refer to MD notes Last Modified By: Niko Rangel RN 01/24/20 08:08:42 [facility] IntraOp General Case Data Audit 01/24/20 08:08:42 Pulmonary Disease Specialist: DREA Modifier: DREA <+> 1 ASA Class [...] 1 Medication/Irrigant Marcaine 0.5% 30ml vial - [id number] Dose Administered By ROSELYN AGUILERA MD-OBG Procedure [...] [facility] IntraOp Patient Positioning Audit 01/24/20 08:14:36 Pulmonary Disease Specialist: MARY ANNER Modifier: HOLLIDSR 1 <*> Procedure [...] Intra Op Sign Out Audit 01/24/20 09:39:54 Pulmonary Disease Specialist: DREA Modifier: MARY ANNER <+> 1 RN [...] [facility] IntraOp Skin Prep Audit 01/24/20 08:14:36 Pulmonary Disease Specialist: ANYINELIDAR Modifier: HOLLIDSR 1 <*> Procedure Salpingectomy [...] [facility] IntraOp Surgical Procedures Audit 01/24/20 09:22:31 Pulmonary Disease Specialist: MARY ANNER Modifier: ANYIIDSR <+> 1 Stop <+> 2 Stop <+> 3 Stop <+> 4 Stop 01/24/20 08:49:15 Pulmonary Disease Specialist: MARY ANNER Modifier: ANYIIDSR <+> 3 Start [...] ILA IntraOp Time Out Audit 01/24/20 08:14:37 Pulmonary Disease Specialist: DREA Modifier: HOLLIDSR 1 <*> Procedure to be Performed Salpingectomy Laparoscopic, Vaginal Hysterectomy Laparoscopic Roboti 01/24/20 08:08:56 Pulmonary Disease Specialist: DREA Modifier: ANYIIDSR 1 <+> Beta Garcia Administered 1 <+> Nursing Assures 1 <+> Essential Imaging Labeled and Displayed 1 <*> Procedure to be Performed Salpingectomy Laparoscopic, Vaginal Hysterectomy Laparoscopic Roboti 01/24/20 08:06:46 Pulmonary Disease Specialist: DREA Modifier: HOLLIDSR 1 <+> Venous Thromboembolism [...]
--- OUTSIDE RECORDS SUMMARY | 2025-02-21 09:18 | XMS_ITS | Encounter Summary ---
Author Organization [employer] ([place], [place], [place], [place]) Address [address] [place] [address] Care Team Providers Care Clinical Data Assistant Name Role Phone Unavailable Primary Care Provider Unavailabl e Encounter Details Date Type Department Care Team (Late st Contact Info) Description 01/24/2020 Transcribed Document [facility] [place] Family Medicine [facility] [place] [address] ProviderAlexander MD [address] [place], [place] [address] Social History Tobacco Use Types Packs/Day Years [...] On: 01/24/2020 15:11 EDT by BRYCE CHENG RN-Experimental Aircraft Mechanic Final Discharge Planning Discharge Arrangements : Patient Post-Acute Information Patient Name: PAMELA ALFONSO Gender: Female : [birth year] Age: 39 Years No Post-Acute Placement(s) Listed No Post-Acute Service(s) Listed No [place] Referral(s) Listed Transportation Needs : Family/Friend Follow Up Appointment Scheduled : Yes Is Patient High/Moderate Readmission Risk? : No Patient/Family Notified of Plan : Yes Discharge To Care Management : Home/Residential/Snf or Self Care -01 BRYCE CHENG, RN-Experimental Aircraft Mechanic - 01/24/2020 15:11 EDT documented in this encounter Plan of Treatment Not on file documented as of this encounter Visit Diagnoses Not on filedocumented in this encounter
--- OUTSIDE RECORDS SUMMARY | 2025-02-21 09:18 | XMS_ITS | Encounter Summary ---
Author Organization Healthcare Address [address] [place] [address] Care Team Providers Care Film Archivist Name Role Phone Bobby Goyal MD Primary Care Provider [phone] Encounter Details Date Type Department Care Team (Late st Contact Info) Description 02/08/2020 Orders Only External Location [address] [place] [id number] Provider, External Social History Tobacco Use Types [...] on filedocumented in this encounter Care Teams Film Archivist Relationship Specialty Start Date End Date Bobby Goyal MD [address] [place] [address] [place] [address] PCP - General 01/11/21 documented as of this encounter
--- OUTSIDE RECORDS SUMMARY | 2025-02-21 09:18 | XMS_ITS | Clinical Summary ---
Author Organization [employer] ([place], [place], [place], [place]) Address [address] [place] [address] Care Team Providers Care Youth Development Specialist Name Role Phone Unavailable Primary Care Provider [...]
--- OUTSIDE RECORDS SUMMARY | 2025-02-21 09:18 | XMS_ITS | Encounter Summary ---
Author Organization [employer] ([place], [place], [place], [place]) Address [address] [place] [address] Care Team Providers Care Glue Maker Bone Name Role Phone Unavailable Primary Care Provider Unavailabl e Encounter Details Date Type Department Care Team (Late st Contact Info) Description 01/24/2020 Transcribed Document [facility] [place] Family [place] [address] ProviderAlexander MD [address] [place], [place] 50[address]21 Social History Tobacco Use Types Packs/Day Years Used Date Smoking Tobacco: Never Assessed Comments Unknown Sex and Gender Information Value Date Recorded Sex Assigned at Not on file Legal Sex Female 6:06 PM CDT Gender Identity Not on file Sexual Orientation Not on file documented as of this encounter Miscellaneous Notes * Cerner Conversion Note - Alexander ProviderMD - 01/24/2020 7:52 AM CDT [facility] [place] PACU Summary Primary Physician: ROSELYN AGUILERA MD-OBG Finalized Date/Time: 01/24/20 11:44:41 Pt. Name: KADEN PAMELAJOHN Ulloa/Sex: 1980 Female Med Rec #: [id number] Physician: ROSELYN AGUILERA MD-OBG Financial #: [id number] Pt. Type: O Room/Bed: Admit/Disch: 01/24/20 04:59:00 - Institution: [facility] [place] PACU Case Times Entry 1 In PACU I 01/24/20 09:38:00 Ready for PACU 01/24/20 10:23:00 Discharge Discharge from PACU 01/24/20 11:43:00 I Last Modified By: Brandee Dwyer RN 01/24/20 11:44:20 [facility] Main OR PACU Case Times Audit 01/24/20 11:44:20 Watch Guard Gate: CARRIEC Modifier: CARRIEC <+> 1 Discharge from PACU I 01/24/20 11:44:14 Watch Guard Gate: CARRIEC Modifier: CARRIEC 1 <*> Ready for PACU Discharge 01/24/20 10:08:00 [facility] Main OR PACU Acuity Entry 1 Start Time 01/24/20 10:23:00 Stop Time 01/24/20 11:43:00 Acuity Level [facility] PACU Acuity I Last Modified By: Brandee Dwyer RN 01/24/20 11:44:39 [facility] Main OR PACU Acuity Audit 01/24/20 11:44:39 Watch Guard Gate: CARRIEC Modifier: CARRIEC 1 <*> Start Time 01/24/20 10:38:00 Finalized By: Brandee Dwyer RN Document Signatures Signed By: Brandee Dwyer RN 01/24/20 11:44 Electronically signed by Hector [facility] Conversion Store Group Manager Cerner at 11/07/2022 6:10 PM CDT documented in this encounter Plan of Treatment Not on file documented as of this encounter Visit Diagnoses Not on filedocumented in this encounter
--- OUTSIDE RECORDS SUMMARY | 2025-02-21 09:18 | XMS_ITS | Encounter Summary ---
Author Organization [employer] ([place], [place], [place], [place]) Address [address] [place] [address] Care Team Providers Care Film Sound Coordinator Name Role Phone Unavailable Primary Care Provider Unavailabl e Encounter Details Date Type Department Care Team (Late st Contact Info) Description 01/24/2020 Transcribed Document [facility] [place] [address] ProviderAlexander MD [address] [place], [place] [id number] Social History Tobacco Use Types Packs/Day Years [...]
--- OUTSIDE RECORDS SUMMARY | 2025-02-21 09:18 | XMS_ITS | Encounter Summary ---
Author Organization [employer] ([place], [place], [place], [place]) Address [address] [place] [address] Care Team Providers Care Traffic Warehouse Supervisor Name Role Phone Unavailable Primary Care Provider Unavailabl e Encounter Details Date Type Department Care Team (Late st Contact Info) Description 01/24/2020 Transcribed Document [facility] [place] [facility] [place] [address] ProviderAlexander MD [address] [place] [id number] Social History Tobacco Use Types Packs/Day Years [...] OF PROCEDURE: 01/24/2020 SURGEON: Bob Bowles MD ANTENNA INSTALLER: BRANDON Montiel PREOPERATIVE DIAGNOSES: 1. Heavy abnormal [...] G2, P2, referred from Dr. Francis Crane [place], for the above-mentioned history and diagnoses. She [...] to postop recovery room in satisfactory condition. /[id number] MD AFSANEH Phipps/AQ / AFSANEH / MODL /[id number] Electronically signed by Hector, [facility] Conversion Milling General Superintendent Cerner at 11/07/2022 6:03 PM CDT documented in this encounter Plan of Treatment Not on file documented as of this encounter Visit Diagnoses Not on filedocumented in this encounter
--- OUTSIDE RECORDS SUMMARY | 2025-02-21 09:18 | XMS_ITS | Encounter Summary ---
Author Organization [employer] ([place], [place], [place], [place]) Address [address] [place] [address] Care Team Providers Care Fitting Room Attendant Name Role Phone Unavailable Primary Care Provider Unavailabl e Encounter Details Date Type Department Care Team (Late st Contact Info) Description 01/24/2020 Transcribed Document [facility] [place] [facility] [place] [address] ProviderAlexander MD [facility] [address] Social History Tobacco Use Types Packs/Day Years [...] #2 Relationship : - Primary Language : [place] Communication Barrier : None Cadd Instructor Needed : No Alexys Love Rn - [...] Scale Risk Level : 25-45 Medium Risk [place] Fall Interventions : Adequate lighting, Assistive devices [...] Source : Stated Height Entry Format : [place] Height, Feet : 5 ft(Converted to: 152 cm, 60 Inch) Height, Inches : 5.5 Inch(Converted to: 0 ft 6 Inch, 13.97 cm) Clinical Height : 166.37 cm Weight Source : Standing scale Weight Entry Format : [place] Clinical Dosing Weight : 110.45 kg Weight, Pounds : 243 lb Body Surface Area (BSA) : 2.16 m2 Body Mass Index : 39.9 kg/m2 (HI) [place] Body Weight : 58 kg Alexys Love Rn - 01/24/2020 12:09 EDT Infectious Disease History Has the patient ever been tested for COVID-19? : Yes, Patient stated results Negative Where was the COVID-19 Testing completed? : [facility] COVID19 Screening : No Experiencing Infectious [...] Alexys Love Rn - 01/24/2020 12:09 EDT [place] Suicide Severity Rating Scale (C-SSRS) CSSRS Past [...]
--- OUTSIDE RECORDS SUMMARY | 2025-02-21 09:18 | XMS_ITS | Encounter Summary ---
Author Organization [employer] ([place], [place], [place], [place]) Address [address] [place] [address] Care Team Providers Care Child Development Teacher Name Role Phone Unavailable Primary Care Provider Unavailabl e Encounter Details Date Type Department Care Team (Late st Contact Info) Description 01/24/2020 Transcribed Document [facility] [place] [facility] [place] [facility] [place] [address] ProviderAlexander MD [address] [place] [address] Social History Tobacco Use Types Packs/Day Years Used Date Smoking Tobacco: Never Assessed Comments Unknown Sex and Gender Information Value Date Recorded Sex Assigned at Not on file Legal Sex Female 6:06 PM CDT Gender Identity Not on file Sexual Orientation Not on file documented as of this encounter Miscellaneous Notes * Cerner Conversion Note - Historical ProviderMD - 01/24/2020 11:39 AM CDT Open Hearth Helper Details Entered On: 01/24/2020 12:12 EDT Performed [...]
--- OUTSIDE RECORDS SUMMARY | 2025-02-21 09:18 | XMS_ITS | Encounter Summary ---
Author Organization [employer] ([place], [place], [place], [place]) Address [address] [place] [address] Care Team Providers Care Renal Dietitian Name Role Phone Unavailable Primary Care Provider Unavailabl e Encounter Details Date Type Department Care Team (Late st Contact Info) Description 01/24/2020 Transcribed Document [facility] [place] [facility] [place] [address] ProviderAlexander MD [address] [place], [place] [phone] Social History Tobacco Use Types Packs/Day Years [...] On: 01/24/2020 15:09 EDT by BRYCE CHENG RN-Teacher Of The Visually Impaired Initial Assessment I Previously Documented Living Environment [...] have PCP Listed? : Yes BRYCE CHENG RN-Teacher Of The Visually Impaired - 01/24/2020 15:09 EDT Initial Assessment II Sensory and Motor Deficits : None Current Home Treatments and Equipment : None BRYCE CHENG RN-Teacher Of The Visually Impaired - 01/24/2020 15:09 EDT Discharge Needs I Anticipated Discharge Date : 01/25/2020 EDT Anticipated Discharge To, CM : Home with family care Current Home Treatment/Equipment : Current Home Treatment/Equipment No qualifying data available. Post Acute/Home Treatments : None Documentation Status Complete : Yes BRYCE CHENG RN-Teacher Of The Visually Impaired - 01/24/2020 15:09 EDT Discharge Needs II Professional Skilled Services : Professional Skilled Services No qualifying data available. Needs Assistance with Transportation : No Discharge Options Discussed with Patient : Discharge transportation, Outpatient services BRYCE CHENG RN-Teacher Of The Visually Impaired - 01/24/2020 15:09 EDT Narrative Note Narrative Note : Patient underwent hysterectomy. Lives at home, iADLs. Plan is to return home with family, no services needed at this time....................sds BRYCE CHENG RN-Teacher Of The Visually Impaired - 01/24/2020 15:09 EDT documented in this encounter Plan of Treatment Not on file documented as of this encounter Visit Diagnoses Not on filedocumented in this encounter
--- OUTSIDE RECORDS SUMMARY | 2025-02-21 09:18 | XMS_ITS | Encounter Summary ---
Author Organization [employer] ([place], [place], [place], [place]) Address [address] [place] [address] Care Team Providers Care Cupola Liner Name Role Phone Unavailable Primary Care Provider Unavailabl e Encounter Details Date Type Department Care Team (Late st Contact Info) Description 01/24/2020 Transcribed Document [facility] [place] [facility] [place] [address] ProviderAlexander MD [address] [place] [id number] Social History Tobacco Use Types Packs/Day Years [...] ALEX Ulloa/Sex: 1980 Female Med Rec #: [id number] Physician: ROSELYN AGUILERA MD-OBG Financial #: [id number] Pt. Type: O Room/Bed: 417/1 Admit/Disch: 01/24/20 04:59:00 - 01/25/20 14:48:00 Institution: [facility] PreOp Case Times Entry 1 In Preop 01/24/20 05:20:00 Ready for Holding n/a Room Patient Ready for 01/24/20 06:51:00 Surgery Patient Out of Preop 01/24/20 07:23:00 Patient Out of n/a Holding Room Last Modified By: PHILL SMALLWOOD 01/27/20 10:15:29 SJSteve PreOp Case Times Audit 01/27/20 10:15:29 Cashier General: DUSTY Modifier: CATLETDD <+> 1 Patient Out of Preop Finalized By: PHILL SMALLWOOD Document Signatures Signed By: PHILL SMALLWOOD 01/27/20 10:15 documented in this encounter Plan of Treatment Not on file documented as of this encounter Visit Diagnoses Not on filedocumented in this encounter
== END 2025-02-21 23:59 | disposition home or self-care (01) ==
PROVIDERS: PCP Internal Medicine; Visit Provider Nurse Practitioner Family
DX: M46.1 Sacroiliitis, not elsewhere classified (principal)
CPT/HCPCS: 99212; G0463

== ENCOUNTER 2025-05-13 08:53 | Day surgery (SDC) | payer BC, SELFPAY ==
[2025-05-13 09:07] VITALS: BP 127/89; PULSE 81; RESP 18; O2SAT 97; BMI 34.9
[2025-05-13] MEDS: BUPIVACAINE 0.25% 10ML INJ 25 MG IJ (10:55)
[2025-05-13] MEDS: LIDOCAINE 1% 5ML PF VIAL 10 ML (10:55)
[2025-05-13 10:56] VITALS: BP 168/101; PULSE 74; RESP 18; O2SAT 100
[2025-05-13] MEDS: DEXAMETHASONE 10MG/ML 1ML VIAL 10 MG (10:56)
[2025-05-13 10:59] VITALS: BP 168/101; PULSE 71; RESP 18; O2SAT 100
[2025-05-13] MEDS: IOPAMIDOL-200 (41%);10ML VIAL 2 ML IV (11:01)
[2025-05-13 11:09] VITALS: BP 138/90; PULSE 67; RESP 16; O2SAT 96
--- NOTE | 2025-05-13 11:36 | EXP.HP ---
History of Present Illness *Admission Date: 05/13/25 *Reason for visit:: Bilateral hip pain and low back pain with cluneal nerve entrapment *History of present illness: The patient had bilateral hip pain and low back pain. She has previously had bilateral SI joint injections with minimal relief. She presents for bilateral cluneal nerve blocks today. [facility] Disclaimer: The information contained in this section may have been updated after the patient was seen, as this information can be updated by other users. Medical History Diabetes Family History Other Unknown family medical history Social History Smoking Status: Never smoker alcohol intake: current current occupational status: other Travel in the last 8 weeks?: None Other Medical History Have you received the Flu Vaccine for this season: No Have you received the Pneumonia Vaccine: No Review of Systems Review of Systems Review of systems:: pertinent systems reviewed and negative unless documented below Meds Home Medications and Allergies Home Medications ?Medication ?Instructions ?Recorded ?Confirmed ?Type fluticasone propionate 50 1 spray intranasal DIRECTED 09/14/24 05/13/25 History mcg/actuation nasal spray,suspension levocetirizine 5 mg tablet 5 mg PO DIRECTED 09/14/24 05/13/25 History semaglutide 2 mg/dose (8 mg/3 mL) 2 mg SQ DIRECTED 09/14/24 05/13/25 History subcutaneous pen injector (Ozempic) methocarbamol 500 mg tablet 1,000 mg (2 x 500 mg) PO TID PRN 02/02/25 05/13/25 Rx muscle pain #180 tabs lidocaine 5 % topical patch 1 patch topical DAILY #30 ea 02/21/25 05/13/25 Rx diclofenac sodium 75 mg 75 mg PO BID #60 tabs 05/02/25 05/13/25 Rx tablet,delayed release New Prescriptions to Start Prescriptions: Allergies Allergy/AdvReac Type Severity Reaction Status Date / Time No Known Allergies Allergy Verified 04/07/25 09:30 Exam Data for Last 24 hours Vital signs and Labs for Last 24 Hours: Pulse Resp BP Pulse Ox O2 Del Method 67 16 138/90 96 Room Air 05/13/25 11:09 05/13/25 11:09 05/13/25 11:09 05/13/25 11:09 05/13/25 11:09 I & O for Last 24 hours: Intake & Output 05/10/25 05/11/25 05/12/25 05/13/25 11:59 11:59 11:59 11:59 Weight 210 lb *Routine HEENT Exam Head: Present normocephalic Eye: Present EOMI ENT: Present mucous membranes moist *Routine Respiratory Exam Respiratory: Present CTA bilaterally *Routine Cardiovascular Exam Cardiovascular: Present RRR and Normal S2 *Routine Abdominal Exam Abdominal: Present soft and normoactive bowel sounds *Routine Rectal Exam Rectal:: deferred *Routine Genitalia Exam Genitalia:: deferred Assessment and Plan *Assessment and plan (1) Bilateral sacroiliitis: Status: Acute Category: Medical Code(s): M46.1 - Sacroiliitis, not elsewhere classified (2) Nerve entrapment: Status: Chronic Category: Medical Code(s): G58.9 - Mononeuropathy, unspecified Plan Bilateral superior cluneal nerve blocks under fluoroscopy
--- NOTE | 2025-05-13 11:38 | EXP.PAIN.PRO ---
Procedure Date: 05/13/25 Time: 11:38 Anesthesiologist:: Roscoe Arora MD Complications:: None Pre-procedure Diagnosis:: Bilateral low back pain and hip pain with cluneal nerve entrapment Post-procedure Diagnosis:: Same Indications for Procedure:: Patient is a pleasant 44-year-old white female who we have treated for low back pain with bilateral hip pain. She has had previous SI joint injections with minimal relief. She presents for bilateral cluneal nerve blocks today. Procedure Details:: Bilateral cluneal nerve blocks Informed consent was obtained risk and benefits of the procedure were explained to the patient. The patient was taken to the procedure room she is placed prone on the procedure table. The skin and subcutaneous tissues overlying the iliac crest on both sides were anesthetized using lidocaine. I placed 22-gauge spinal needles into the area of the superior cluneal nerve at the iliac crest bilaterally. We then injected 5 mL bupivacaine 0.25% and dexamethasone 10 mg into the area of the superior cluneal nerves on the left and then the right side. Patient tolerated procedure well with no complications. Plan and Disposition:: Patient had bilateral cluneal nerve blocks done today. If she does not get long-term relief from these injections she may be a candidate for RF ablation to the superior cluneal nerves. Will reevaluate symptoms in 2 weeks.
== END 2025-05-13 11:09 | disposition home or self-care (01) ==
LOC: SC.PAINP 08:54
PROVIDERS: PCP Internal Medicine; Visit Provider Anesthesiology
DX: M46.1 Sacroiliitis, not elsewhere classified (principal); E11.41 Type 2 diabetes mellitus with diabetic mononeuropathy; Z79.85 Long-term (current) use of injectable non-insulin antidiabetic drugs
CPT/HCPCS: 64450; 99221; J0665; J1100; J2003; Q9966